=== PATIENT | female | born 1985 | race Caucasian/White ===

== ENCOUNTER → 2018-08-17 | Outpatient (CLI) | payer BC ==
--- NOTE | 2018-08-17 09:00 | RAD ---
Examination: ABDOMEN LTD History: RUQ Pain Comparison/Correlation: None Findings: Limited right upper quadrant ultrasound exam was performed. Hepatic echotexture is normal. Proximal pancreas is normal. Distal pancreas is obscured by bowel gas. Portal venous flow is normal. No ascites. Right kidney measures 11.8 cm x 6.2 cm x 5.3 cm. no right hydronephrosis. Liver has a length of 17.8 cm. Common bile that measures 0.3 cm. Aorta and inferior vena cava are unremarkable. There is a calculus within the gallbladder measuring up to 0.54 cm diameter. Gallbladder wall thickness is normal. No pericholecystic fluid. Impression: Cholelithiasis. No acute process. Electronically signed by: Grzegorz Franco MD (08/17/2018 8:57 AM) [id number]
== END | disposition home or self-care (01) ==
LOC: US 08:15
PROVIDERS: ATTEND Obstetrics & Gynecology
DX: K80.20 Calculus of gallbladder without cholecystitis without obstruction (principal)
CPT/HCPCS: 76705

== ENCOUNTER → 2019-07-14 | Outpatient (CLI) | payer OTHER ==
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
== END | disposition home or self-care (01) ==
LOC: PMG 14:45
PROVIDERS: ATTEND Physician Assistant
DX: M40.292 Other kyphosis, cervical region (principal); V98.8XXA Other specified transport accidents, initial encounter; Y93.89 Activity, other specified; Y92.89 Other specified places as the place of occurrence of the external cause; Y99.8 Other external cause status
CPT/HCPCS: 72050; 72072

== ENCOUNTER → 2019-12-20 | Outpatient (CLI) | payer OTHER, BC ==
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
== END ==
LOC: RAD 18:08
PROVIDERS: ATTEND Physician Assistant Medical
DX: M79.672 Pain in left foot (principal)
CPT/HCPCS: 73630

== ENCOUNTER 2020-03-21 10:03 | Emergency (ER) | payer BC, OTHER ==
[~2020-03-21] VITALS: Ht 162.6 cm; Wt 80.0 kg
--- NOTE | 2020-03-21 10:16 | PHYS DOC ---
Past History Past Medical History: Hypertension Alcohol Use: Occasionally Drug Use: None General Adult EDM: Chief Complaint: CHEST PAIN HPI: HPI: Patient is a 34-year-old female arrives with a chief complaint of chest pain. 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 Patient woke up this morning with some mild discomfort in her bilateral lower ribs. Then patient began having substernal chest pressure that is nonradiating while at work. Patient has shortness of breath and dizziness and felt like she might pass out. Symptoms are worse with activity and better with rest. Patient denies any recent illnesses. Denies any fevers, chills, cough or vomiting or diarrhea. Patient also has some epigastric discomfort. Pain is currently a 5-6 out of 10. Review of Systems: Review of Systems: Constitutional: Denies fever or chills Eyes: Denies change in visual acuity HENT: Denies nasal congestion or sore throat Respiratory: Denies cough but has had shortness of breath Cardiovascular: Complains of chest pain but no edema GI: Complains of some epigastric abdominal pain, but patient denies nausea, vomiting, bloody stools or diarrhea : Denies dysuria Musculoskeletal: Denies back pain or joint pain Integument: Denies rash Neurologic: Denies headache, focal weakness or sensory changes Endocrine: Denies polyuria or polydipsia Lymphatic: Denies swollen glands Psychiatric: Denies depression but has some anxiety Physical Exam: PE: Constitutional: Well developed, well nourished, no acute distress, non-toxic appearance. [] HENT: Normocephalic, atraumatic, bilateral external ears normal, no trismus, nose normal. [] Eyes: PERRLA, EOMI, conjunctiva normal, no discharge. [] Neck: Normal range of motion, no tenderness, supple, no stridor. [] Cardiovascular:Heart rate regular rhythm, peripheral pulse intact cap refill is brisk Lungs & Thorax: Bilateral breath sounds clear, no respiratory distress Abdomen: Soft with epigastric tenderness without guarding or rebound, no masses, no pulsatile masses. [] Skin: Warm, dry, no erythema, no rash. [] Back: No tenderness, no CVA tenderness. [] Extremities: No tenderness, no cyanosis, no clubbing, ROM intact, no edema. [] Neurologic: Alert and oriented X 3, normal motor function, normal sensory function, no focal deficits noted. [] Psychologic: Affect normal, judgement normal, mood normal. [] Current Patient Data: Labs: Laboratory Tests Test 03/21/20 10:10 03/21/20 10:35 03/21/20 10:38 03/21/20 14:21 White Blood Count 6.2 x10^3/uL Red Blood Count 4.34 x10^6/uL Hemoglobin 14.0 g/dL Hematocrit 41.8 % Mean Corpuscular Volume 96 fL Mean Corpuscular Hemoglobin 32 pg Mean Corpuscular Hemoglobin Concent 33 g/dL Red Cell Distribution Width 14.3 % Platelet Count 183 x10^3/uL Neutrophils (%) (Auto) 72 % Lymphocytes (%) (Auto) 16 % Monocytes (%) (Auto) 10 % Eosinophils (%) (Auto) 1 % Basophils (%) (Auto) 1 % Neutrophils # (Auto) 4.4 x10^3uL Lymphocytes # (Auto) 1.0 x10^3/uL Monocytes # (Auto) 0.6 x10^3/uL Eosinophils # (Auto) 0.0 x10^3/uL Basophils # (Auto) 0.0 x10^3/uL D-Dimer (Thelma) 0.76 mg/L Sodium Level 139 mmol/L Potassium Level 3.3 mmol/L Chloride Level 99 mmol/L Carbon Dioxide Level 23 mmol/L Anion Gap 17 Blood Urea Nitrogen 7 mg/dL Creatinine 1.0 mg/dL Estimated GFR (Cockcroft-Gault) 63.5 BUN/Creatinine Ratio 7 Glucose Level 103 mg/dL Calcium Level 9.6 mg/dL Total Bilirubin 0.2 mg/dL Aspartate Amino Transf (AST/SGOT) 146 U/L Alanine Aminotransferase (ALT/SGPT) 150 U/L Alkaline Phosphatase 108 U/L Troponin I Quantitative < 0.017 ng/mL < 0.017 ng/mL [id number] Natriuretic Peptide 57 pg/mL Total Protein 7.9 g/dL Albumin 4.2 g/dL Albumin/Globulin Ratio 1.1 Lipase 176 U/L Serum Test, Qualitative Negative Urine Collection Type Unknown Urine Color Yellow Urine Clarity Clear Urine pH 8.0 Urine Specific [place] 1.020 Urine Protein Trace Urine Glucose (UA) Neg mg/dL Urine Ketones (Stick) Trace mg/dL Urine Blood Neg Urine Nitrite Neg Urine Bilirubin Neg Urine Urobilinogen Dipstick 0.2 mg/dL Urine Leukocyte Esterase Neg Urine RBC 0 /HPF Urine WBC Occ /HPF Urine Squamous Epithelial Cells Few /LPF Urine Bacteria 0 /HPF Bedside Urine HCG, Qualitative hcg negative Current Medications Medications (Trade) Dose Ordered Sig/Paco Route PRN Reason Start Time Stop Time Status Last Admin Dose Admin Lorazepam (Ativan Inj) 1 mg 1X ONCE IVP 03/21/20 10:45 03/21/20 10:46 DC 03/21/20 10:45 Aspirin (Aspirin Chewable) 324 mg 1X ONCE PO 03/21/20 10:45 03/21/20 10:46 DC 03/21/20 10:45 Ketorolac Tromethamine (Toradol 15mg Vial) 15 mg 1X ONCE IVP 03/21/20 11:45 03/21/20 11:48 DC 03/21/20 11:45 Iohexol (Omnipaque 350 Mg/ml) 100 ml 1X ONCE IV 03/21/20 11:45 03/21/20 11:48 DC 03/21/20 12:17 Lorazepam (Ativan Inj) 1 mg 1X ONCE IVP 03/21/20 13:45 03/21/20 13:51 DC 03/21/20 13:45 Labetalol HCl (Normodyne) 20 mg 1X ONCE IVP 03/21/20 14:15 03/21/20 14:19 DC 03/21/20 14:15 Vital Signs: Vital Signs Date Time Temp Pulse Resp B/P (MAP) Pulse Ox O2 Delivery O2 Flow Rate FiO2 03/21/20 14:24 116 168/112 (130) 03/21/20 13:55 16 98 03/21/20 11:51 Room Air 03/21/20 10:53 99.0 03/21/20 10:07 97.9 EKG: EKG: EKG interpreted by me sinus tach with a rate of 107 normal axis normal intervals normal ST segments [] Radiology/Procedures: Radiology/Procedures: [][address] [address] IMAGING REPORT Signed PATIENT: JOEY SOARES ACCOUNT: [id number] : 1985 LOCATION: ER AGE: 34 SEX: F EXAM STATUS: REG ER ORD. PHYSICIAN: JULIO CESAR MARIEE MD REASON: CHEST PAIN PROCEDURE: PORTABLE CHEST 1V EXAM: PORTABLE CHEST 1V INDICATION: Reason: CHEST PAIN / Spl. Instructions: / History: . TECHNIQUE: Single view COMPARISON: None FINDINGS: The heart size is normal. The great vessels appear unremarkable. There is no hilar or mediastinal mass. The lungs are clear. There is no pleural effusion or pneumothorax. There are no significant osseous abnormalities. IMPRESSION: No active cardiopulmonary disease. Electronically signed by: Radha Valente MD (03/21/2020 10:34 AM) [id number] DICTATED AND SIGNED BY: RADHA VALENTE MD DATE: 03/21/201033 CC: JULIO CESAR MARIEE MD; ALCON JARVIS MD ~ [place] [address] IMAGING REPORT Signed PATIENT: JOEY SOARES ACCOUNT: [id number] : 1985 LOCATION: ER AGE: 34 SEX: F EXAM STATUS: REG ER ORD. PHYSICIAN: JULIO CESAR MARIEE MD REASON: CHEST PAIN, SOA, POS D-DIMER PROCEDURE: CT ANGIOGRAPHY CHEST CT ANGIOGRAPHY CHEST INDICATION: CHEST PAIN, SOA, POS D-DIMER Comparison: Radiograph 03/21/2020. TECHNIQUE: Following the uneventful administration of intravenous contrast, 100 cc Omnipaque 350, axial CT sections were obtained through the lungs and upper abdomen. Multiplanar reconstructions and MIP images were obtained. PQRS compliance statement: One or more of the following individualized dose reduction techniques were utilized for this examination: 1. Automated exposure control 2. Adjustment of the mA and/or kV according to patient size 3. Use of iterative reconstruction technique FINDINGS: Pulmonary arteries: No evidence of pulmonary thromboembolic disease. Lungs and Airways: No pulmonary mass or consolidation. No abnormality of the central airways. Pleura: The pleural spaces are normal. Heart and Mediastinum: The visualized thyroid is normal in size and attenuation. No axillary or supraclavicular lymphadenopathy. No mediastinal, hilar or retrocrural lymphadenopathy. The heart and pericardium are within normal limits. The great vessels of the thorax are normal. Abdomen: Hepatic steatosis. Bones and Soft Tissues: The visualized bones and chest wall soft tissues are within normal limits. IMPRESSION: 1. No evidence of pulmonary thromboembolic disease. 2. No pulmonary mass or consolidation. Electronically signed by: Justin Sommer MD (03/21/2020 12:39 PM) [id number] DICTATED AND SIGNED BY: JUSTIN SOMMER MD DATE: 03/21/20 1239 CC: JULIO CESAR MARIEE MD; ALCON [place]VIS ~ [place] [address] IMAGING REPORT Signed PATIENT: JOEY SOARES ACCOUNT: [id number] : 1985 LOCATION: ER AGE: 34 SEX: F EXAM STATUS: REG ER ORD. PHYSICIAN: JULIO CESAR MARIEE MD REASON: RUQ PAIN PROCEDURE: ABDOMEN LTD INDICATION : Reason: RUQ PAIN / Spl. Instructions: / History: COMPARISON: August 2018 TECHNIQUE: Multiple ultrasound images obtained through the abdomen in grayscale and color. FINDINGS: Liver: Echogenic appearance Gallbladder: Partially contracted. The gallstone seen on prior examination are not well seen on this exam. Tenderness to pressure in the right upper quadrant. IVC: Partially distended at level of liver. Common Bile Duct: Not dilated. Pancreas: Incompletely visualized secondary to overlying bowel gas. Right Kidney: No hydronephrosis. IMPRESSION: * No common bile duct dilation. There is some pain to transducer pressure in the right upper quadrant. * Liver is echogenic. Nonspecific but can be seen with fatty infiltration. Electronically signed by: Augustine Cummings MD (03/21/2020 12:28 PM) [id number] DICTATED AND SIGNED BY: AUGUSTINE CUMMINGS MD DATE: 03/21/20 1228 CC: JULIO CESAR MARIEE MD; ALCON JARVIS ~ Heart Score: HEART Score for Chest Pain: HEART Score for Chest Pain Response (Comments) Value History Moderately Suspicious 1 ECG Normal 0 Age < 45 0 Risk Factors 1 or 2 Risk Factors 1 Troponin < Normal Limit 0 Total 2 Risk Factors: Risk Factors: DM, Current or recent (<one month) smoker, HTN, HLP, family history of CAD, obesity. Risk Scores: Score 0 - 3: 2.5% MACE over next 6 weeks - Discharge Home Score 4 - 6: 20.3% MACE over next 6 weeks - Admit for Clinical Observation Score 7 - 10: 72.7% MACE over next 6 weeks - Early Invasive Strategies Course & Med Decision Making: Course & Med Decision Making Pertinent Labs and Imaging studies reviewed. (See chart for details) [] 34-year-old female presents with chest pain and feels like her heart is pounding. Patient had elevated D-dimer therefore she had a CT angiogram which was negative for pulmonary embolism or thoracic aortic dissection. Patient has a heart score of 2 and 2 - troponins, doubt acute coronary syndrome. Patient is neurologically intact. Patient has some epigastric tenderness therefore she had an ultrasound which is negative. Patient has some transaminitis but otherwise negative work-up. Patient's blood pressure is improved after Ativan and labetalol. Patient is a follow-up appoint with her doctor tomorrow and may need to adjust her blood pressure medicine. Patient is otherwise stable for discharge and outpatient follow-up Anali Disclaimer: Anali Disclaimer: This electronic medical record was generated, in whole or in part, using a voice recognition dictation system. Departure Departure: Impression: Primary Impression: Chest pain Additional Impressions: Epigastric pain Hypertension Transaminitis Disposition: 01 DC HOME SELF CARE/HOMELESS Condition: STABLE Referrals: ALCON JARVIS (PCP) Tomorrow Patient Instructions: Abdominal Pain, Chest Pain (Nonspecific) Additional Instructions: EMERGENCY DEPARTMENT GENERAL DISCHARGE INSTRUCTIONS THANK YOU for coming to [facility] Emergency Department (ED) today and trusting us with your care. We trust that you had a positive experience in our Emergency Department. If you wish to speak to the department Management you can contact the emergency department at YOUR FOLLOW UP INSTRUCTIONS ARE FOLLOWS: Do you have a private doctor? If you do not have a private doctor, please ask for a resource list of physicians or clinics that may be able to assist you with follow up care. The Emergency Physician has interpreted your x-rays. The X-ray specialist will also review them. If there is a change in the findings you will be notified in 48 hours when at all possible. A lab test or lab culture may have been done, your results will be reviewed and you will be notified if you need a change in treatment. ADDITIONAL INSTRUCTIONS AND INFORMATION Your care today has been supervised by a physician who is specially trained in emergency care. Many problems require more than one evaluation for a complete diagnosis and treatment. We recommend that you schedule your follow up appointment as recommended to ensure complete treatment of your illness or injury. If you are unable to obtain follow up care and continue to have a problem, or if your condition worsens we recommend that you return to the ED. We are not able to safely determine your condition over the phone nor are we able to give sound medical advice over the phone. For these safety reasons, if you call for medical advice we will ask you to come to the ED for further evaluation If you have any questions regarding these discharge instructions please call the ED at . SAFETY INFORMATION In the interest of safety, wellness, and injury prevention; we encourage you to wear your seatbelt, if you smoke; quit smoking, and we encourage your family to use protective helmet for bicycling and other sporting events that present an increased risk for head injury. IF YOUR SYMPTOMS WORSEN OR NEW SYMPTOMS DEVELOP, OR YOU HAVE CONCERNS ABOUT YOUR CONDITION; OR IF YOUR CONDITION WORSENS WHILE YOU ARE WAITING FOR YOUR FOLLOW UP APPOINTMENT; EITHER CONTACT YOUR PRIMARY CARE DOCTOR, THE PHYSICIAN WHOSE NAME AND NUMBER YOU WERE GIVEN, OR RETURN TO THE ED IMMEDIATELY. JULIO CESAR MARIEE MD Mar 21, 2020 10:16
--- NOTE | 2020-03-21 10:27 | EKG ---
[address] [address] Test Date: 2020-03-21 Test Time: 10:09:08 Pat Name: JOEY SOARES Department: Room: Gender: F [employer]: VAHID : 1985 Requested By: JULIO CESAR MARIEE Order Number: [id number] Reading MD: Measurements Intervals [place] Rate: 107 P: 64 NH: 138 QRS: 42 QRSD: 88 T: 48 QT: 340 QTc: 459 Interpretive Statements SINUS TACHYCARDIA OTHERWISE NORMAL ECG RI6.02 No previous ECG available for comparison
[2020-03-21 10:37] LABS: BASO % 1 % (0-3); EOS % 1 % (0-3); HEMATOCRIT 41.8 % (36.0-47.0); LYMPH % 16 % (24-48); MEAN CORPUSCULAR HEMOGLOBIN 32 pg (25-35); MEAN CORPUSCULAR HGB CONC 33 g/dL (31-37); MEAN CORPUSCULAR VOLUME 96 fL (79-100); MONO # 0.6 x10^3/uL (0.0-1.1); MONO % 10 % (0-9); NEUT # 4.4 x10^3uL (1.8-7.7); NEUT % 72 % (31-73); PLATELET COUNT 183 x10^3/uL (140-400); RED BLOOD COUNT 4.34 x10^6/uL (3.50-5.40); RED CELL DISTRIBUTION WIDTH 14.3 % (11.5-14.5); WHITE BLOOD COUNT 6.2 x10^3/uL (4.0-11.0)
--- NOTE | 2020-03-21 10:37 | RAD ---
EXAM: PORTABLE CHEST 1V INDICATION: Reason: CHEST PAIN / Spl. Instructions: / History: . TECHNIQUE: Single view COMPARISON: None FINDINGS: The heart size is normal. The great vessels appear unremarkable. There is no hilar or mediastinal mass. The lungs are clear. There is no pleural effusion or pneumothorax. There are no significant osseous abnormalities. IMPRESSION: No active cardiopulmonary disease. Electronically signed by: Rob Valente MD (03/21/2020 10:34 AM) [id number]
[2020-03-21 10:42] LABS: CALCIUM 9.6 mg/dL (8.5-10.1); GFR 63.5; POTASSIUM 3.3 mmol/L (3.5-5.1); PREG TEST PT QUAL NEGATIVE (NEG)
[2020-03-21] MEDS ORDERED: ASPIRIN CHEWABLE 81 MG TABLET. PO ONE (10:45)
[2020-03-21 10:55] LABS: ALBUMIN 4.2 g/dL (3.4-5.0); ALBUMIN/GLOBULIN RATIO 1.1 (1.0-1.7); TOTAL BILIRUBIN 0.2 mg/dL (0.2-1.0); TOTAL PROTEIN 7.9 g/dL (6.4-8.2)
[2020-03-21 11:15] LABS: BILIRUBIN,URINE NEG (NEG); CLARITY,URINE CLEAR; COLOR,URINE YELLOW; GLUCOSE,URINE NEG (NEG)
[2020-03-21 11:16] LABS: BACTERIA,URINE 0 /HPF (0-FEW); NITRITE,URINE NEG (NEG); RBC,URINE 0 /HPF (0-2); SQUAMOUS EPITHELIAL CELL,UR FEW /LPF; UROBILINOGEN,URINE 0.2 mg/dL (0.2 mg/dL); WBC,URINE OCC /HPF (0-4)
[2020-03-21] MEDS ORDERED: KETOROLAC 15 MG/ML VIAL. IVP ONE (11:45)
[2020-03-21] MEDS ORDERED: IOHEXOL 350 MG/ML 100 ML VIAL. IV ONE (11:45)
--- NOTE | 2020-03-21 12:32 | RAD ---
INDICATION : Reason: RUQ PAIN / Spl. Instructions: / History: COMPARISON: August 2018 TECHNIQUE: Multiple ultrasound images obtained through the abdomen in grayscale and color. FINDINGS: Liver: Echogenic appearance Gallbladder: Partially contracted. The gallstone seen on prior examination are not well seen on this exam. Tenderness to pressure in the right upper quadrant. IVC: Partially distended at level of liver. Common Bile Duct: Not dilated. Pancreas: Incompletely visualized secondary to overlying bowel gas. Right Kidney: No hydronephrosis. IMPRESSION: * No common bile duct dilation. There is some pain to transducer pressure in the right upper quadrant. * Liver is echogenic. Nonspecific but can be seen with fatty infiltration. Electronically signed by: Abhishek Biswas MD (03/21/2020 12:28 PM) [id number]
--- NOTE | 2020-03-21 12:42 | RAD ---
CT ANGIOGRAPHY CHEST INDICATION: CHEST PAIN, SOA, POS D-DIMER Comparison: Radiograph 03/21/2020. TECHNIQUE: Following the uneventful administration of intravenous contrast, 100 cc Omnipaque 350, axial CT sections were obtained through the lungs and upper abdomen. Multiplanar reconstructions and MIP images were obtained. PQRS compliance statement: One or more of the following individualized dose reduction techniques were utilized for this examination: 1. Automated exposure control 2. Adjustment of the mA and/or kV according to patient size 3. Use of iterative reconstruction technique FINDINGS: Pulmonary arteries: No evidence of pulmonary thromboembolic disease. Lungs and Airways: No pulmonary mass or consolidation. No abnormality of the central airways. Pleura: The pleural spaces are normal. Heart and Mediastinum: The visualized thyroid is normal in size and attenuation. No axillary or supraclavicular lymphadenopathy. No mediastinal, hilar or retrocrural lymphadenopathy. The heart and pericardium are within normal limits. The great vessels of the thorax are normal. Abdomen: Hepatic steatosis. Bones and Soft Tissues: The visualized bones and chest wall soft tissues are within normal limits. IMPRESSION: 1. No evidence of pulmonary thromboembolic disease. 2. No pulmonary mass or consolidation. Electronically signed by: Charles Valencia MD (03/21/2020 12:39 PM) [id number]
[2020-03-21] MEDS ORDERED: LABETALOL 20 MG/4 ML DISP.SYRIN. IVP ONE (14:15)
[2020-03-21 15:27] VITALS: BP 154/111
== END 2020-03-21 15:25 | disposition home or self-care (01) ==
LOC: ER 10:03
DX: R07.2 Precordial pain (principal); R10.13 Epigastric pain; I10 Essential (primary) hypertension; R74.01 Elevation of levels of liver transaminase levels
CPT/HCPCS: 36415; 71045; 71275; 76705; 80053; 81001; 81025; 83690; 83880; 84443; 84484; 84703; 85025; 85379; 93005; 96374; 96375; 96376; 99285; J1885; J2060; J3490; Q9967

== ENCOUNTER → 2020-03-23 | Outpatient (CLI) | payer BC ==
[2020-03-21 15:27] VITALS: BP 154/111
== END ==
LOC: LAB 09:23
PROVIDERS: ATTEND Physician Assistant
DX: R05 Cough (principal); B97.29 Other coronavirus as the cause of diseases classified elsewhere; Z20.828 Contact with and (suspected) exposure to other viral communicable diseases
CPT/HCPCS: U0003

== ENCOUNTER 2020-11-21 08:58 | Inpatient (IN) | payer SELFPAY ==
[~2020-11-21] VITALS: Ht 162.6 cm; Wt 63.1 kg
[2020-11-21] MEDS ORDERED: FAMOTIDINE 20 MG/2 ML VIAL IVP ONE (09:15)
[2020-11-21] MEDS ORDERED: IV NORMAL SALINE 1,000ML 1,000 ML IV ONE ×2 (09:15→10:15)
[2020-11-21] MEDS ORDERED: ONDANSETRON PF 4 MG/2 ML VIAL. IVP ONE (09:15)
[2020-11-21] MEDS ORDERED: KETOROLAC 15 MG/ML VIAL. IVP ONE (09:15)
[2020-11-21 09:26] LABS: BASO # 0.1 x10^3/uL (0.0-0.2); BASO % 1 % (0-3); EOS % 1 % (0-3); HEMATOCRIT 38.5 % (36.0-47.0); LYMPH # 1.7 x10^3/uL (1.0-4.8); LYMPH % 30 % (24-48); MEAN CORPUSCULAR HEMOGLOBIN 33 pg (25-35); MEAN CORPUSCULAR HGB CONC 34 g/dL (31-37); MEAN CORPUSCULAR VOLUME 98 fL (79-100); MONO # 0.3 x10^3/uL (0.0-1.1); MONO % 6 % (0-9); NEUT # 3.6 x10^3uL (1.8-7.7); NEUT % 63 % (31-73); PLATELET COUNT 218 x10^3/uL (140-400); RED BLOOD COUNT 3.93 x10^6/uL (3.50-5.40); RED CELL DISTRIBUTION WIDTH 20.7 % (11.5-14.5); WHITE BLOOD COUNT 5.8 x10^3/uL (4.0-11.0)
--- NOTE | 2020-11-21 09:29 | PHYS DOC ---
Past History Past Medical History: Anxiety, Depression, Hypertension, Pancreatitis, Other Additional Past Medical Histor: ADHD Past Surgical History: Other Additional Past Surgical Histo: BACK x 4 Smoking: Non-smoker Alcohol Use: Occasionally Drug Use: None General Adult EDM: Chief Complaint: CHEST PAIN HPI: HPI: Patient is a 34 year old female who presents with chest/epigastric pain. States the pain started at 5am this morning (11/21/20) and has been worsening since. States that she has a history of pancreatitis and she feels that it is "acting up again." Pain is localized to the epigastric area and is described as a 10/10 in severity. The patient struggled to provide a detailed history due to her pain. The pain is non-radiating, sharp and stabbing. Reports associated nausea. Denies vomiting or diarrhea. Denies recent illness. Reports drinking "a few beers last night." Review of Systems: Review of Systems: Constitutional: Denies fever or chills Eyes: Denies redness or eye pain HENT: Denies nasal congestion or sore throat Respiratory: Denies cough or shortness of breath Cardiovascular: Denies chest pain or palpitations GI: Reports abdominal pain and nausea; Denies vomiting or diarrhea : Denies dysuria or hematuria Musculoskeletal: Denies back pain or joint pain Integument: Denies rash or skin lesions Neurologic: Denies headache, focal weakness or sensory changes Complete systems were reviewed and found to be within normal limits, except as documented in this note. Current Medications: Current Meds: Current Medications Medications (Trade) Dose Ordered Sig/[facility] Start Time Stop Time Status Last Admin Dose Admin Famotidine (Pepcid Vial) 20 mg 1X ONCE 11/21/20 09:15 11/21/20 09:16 UNV Ketorolac Tromethamine (Toradol 15mg Vial) 15 mg 1X ONCE 11/21/20 09:15 11/21/20 09:16 UNV Ondansetron HCl (Zofran) 4 mg 1X ONCE 11/21/20 09:15 11/21/20 09:16 UNV Sodium Chloride 1,000 ml @ 1,000 mls/hr 1X ONCE 11/21/20 09:15 11/21/20 10:14 UNV Allergies: Allergies: Allergies Coded Allergies Type Severity Reaction Last Updated Verified No Known Drug Allergies 03/21/20 No Physical Exam: PE: Constitutional: Well developed, well nourished, in acute distress due to pain, non-toxic appearance HENT: Normocephalic, atraumatic Eyes: PERRL, EOMI, conjunctiva normal, no discharge Neck: Normal range of motion, no tenderness, supple Lungs & Thorax: No respiratory distress, equal chest rise and fall Abdomen: Soft, non-distended, tenderness to palpation throughout and most significantly in the epigastric and LUQ region Skin: Warm, dry, no erythema, no rash Back: No tenderness, no CVA tenderness Extremities: No tenderness, ROM intact, no edema Neurologic: Alert and oriented X 3, normal motor function, normal sensory function, no focal deficits noted Psychologic: Affect anxious, judgment normal Current Patient Data: Vital Signs: Vital Signs Date Time Temp Pulse Resp B/P (MAP) Pulse Ox O2 Delivery O2 Flow Rate FiO2 11/21/20 09:01 98.5 100 16 146/92 100 Room Air EKG: EK11/21/20 @ 0901 sinus tachycardia, 103 bpm, QRS 80 ms, QT/QTc 384/505ms, no ST segment changes Radiology/Procedures: Radiology/Procedures: PROCEDURE: CT ABD PELV W/ IV CONTRST ONLY CT scan of the abdomen and pelvis with contrast 11/21/2020 CLINICAL HISTORY: Epigastric pain. Left upper quadrant abdominal pain. TECHNIQUE: After the intravenous administration of 75 cc of Omnipaque 300 only, contiguous, 5 mm axial sections were obtained through the abdomen and pelvis. One or more of the following individualized dose reduction techniques were utilized for this study: 1. Automated exposure control. 2. Adjustment of the mA and/or kV according to patient size. 3. Use of iterative reconstruction technique. FINDINGS: Comparison study is dated 09/30/2020. Images through the lung bases are within normal limits. The liver is mildly enlarged measuring 19 cm in length. Decreased attenuation of the liver parenchyma is seen consistent with fatty infiltration. The spleen, adrenal glands and kidneys are within normal limits. The pancreas is enlarged and poorly defined particularly involving the head and proximal body of the pancreas. Increased density is seen within the fat. These findings are consistent with acute pancreatitis. No pancreatic pseudocyst is seen. Since the previous examination the phlegmon surrounding the tail of pancreas has largely resolved. The phlegmon surrounding the head and proximal body has increased slightly. The abdominal aorta tapers normally. The gallbladder is slightly contracted. No free fluid or free air is seen within the abdomen. There is no evidence of bowel obstruction. Images through the pelvis demonstrate the urinary bladder distended with urine. A very small amount of free fluid is seen within the pelvis. No adnexal mass is seen. The osseous structures are unchanged. IMPRESSION: Findings are seen consistent with acute pancreatitis as discussed above. No pancreatic pseudocyst is seen. Electronically signed by: Duong Schroeder MD (11/21/2020 10:19 AM) [id number] Heart Score: C/O Chest Pain: Yes HEART Score for Chest Pain: HEART Score for Chest Pain Response (Comments) Value History Slighlty/Non-Suspicious 0 ECG Normal 0 Age < 45 0 Risk Factors 1 or 2 Risk Factors 1 Troponin < Normal Limit 0 Total 1 Risk Factors: Risk Factors: DM, Current or recent (<one month) smoker, HTN, HLP, family history of CAD, obesity. Risk Scores: Score 0 - 3: 2.5% MACE over next 6 weeks - Discharge Home Score 4 - 6: 20.3% MACE over next 6 weeks - Admit for Clinical Observation Score 7 - 10: 72.7% MACE over next 6 weeks - Early Invasive Strategies Course & Med Decision Making: Course & Med Decision Making Pertinent Labs and Imaging studies reviewed. (See chart for details) Patient is a 34 year old female who presented for chest/epigastric pain. Patient reported history of pancreatitis. EKG was obtained and showed sinus tachycardia with no signs of ischemia. Labs obtained and posted to chart. Troponin WNL. Lipase significantly elevated. Hypokalemia and hypomagnesemia addressed. CT Abd/pel w IV contrast consistent with acute pancreatitis without evidence of a pseudocyst. Patient kept NPO. Symptomatic treatment provided. Patient requiring admission for further evaluation and treatment. Discussed with Dr. Don (hospitalist) who is in agreement with admission. Discussed findings and plan with patient, who acknowledges understanding and agreement. Dragon Disclaimer: Anali Disclaimer: This electronic medical record was generated, in whole or in part, using a voice recognition dictation system. Departure Departure: Impression: Primary Impression: Acute pancreatitis Qualified Codes: K85.20 - Alcohol induced acute pancreatitis without necrosis or infection Additional Impressions: Hypokalemia Hypomagnesemia Disposition: ADMITTED INPATIENT Admitting Physician: Lety Don Condition: STABLE Referrals: ALCON JARVIS (PCP) Scripts No Active Prescriptions or Reported Meds STACIE MONIQUE DO Nov 21, 2020 09:29
[2020-11-21 09:40] LABS: ANION GAP 21 (6-14); BLOOD UREA NITROGEN 3 mg/dL (7-20); BUN/CREATININE RATIO 3 (6-20); CALCIUM 8.8 mg/dL (8.5-10.1); CARBON DIOXIDE 20 mmol/L (21-32); CHLORIDE 96 mmol/L (98-107); CREATININE 0.9 mg/dL (0.6-1.0); GFR 71.7; GLUCOSE 107 mg/dL (70-99); POTASSIUM 3.3 mmol/L (3.5-5.1); SODIUM 137 mmol/L (136-145)
[2020-11-21] MEDS ORDERED: IOHEXOL 300 MG/ML 75 ML VIAL. IV ONE (09:45)
[2020-11-21 09:53] LABS: ALBUMIN 3.4 g/dL (3.4-5.0); ALBUMIN/GLOBULIN RATIO 0.9 (1.0-1.7); ALK PHOS 132 U/L (46-116); ALT (SGPT) 51 U/L (14-59); AST (SGOT) 178 U/L (15-37); MAGNESIUM 1.6 mg/dL (1.8-2.4); TOTAL BILIRUBIN 0.9 mg/dL (0.2-1.0); TOTAL PROTEIN 7.4 g/dL (6.4-8.2)
[2020-11-21 10:03] LABS: ANISOCYTOSIS MOD; PLT ESTIMATE ADEQUATE (ADEQUATE)
[2020-11-21] MEDS ORDERED: HYDROmorphone PF 1 MG/ML DISP.SYRIN IVP PRN (10:15)
[2020-11-21] MEDS ORDERED: HYDROmorphone PF 1 MG/ML DISP.SYRIN IVP ONE (10:15)
--- NOTE | 2020-11-21 10:21 | RAD ---
CT scan of the abdomen and pelvis with contrast 11/21/2020 CLINICAL HISTORY: Epigastric pain. Left upper quadrant abdominal pain. TECHNIQUE: After the intravenous administration of 75 cc of Omnipaque 300 only, contiguous, 5 mm axia l sections were obtained through the abdomen and pelvis. One or more of the following individualized dose reduction techniques were utilized for this study: 1. Automated exposure control. 2. Adjustment of the mA and/or kV according to patient size. 3. Use of iterative reconstruction technique. FINDINGS: Comparison study is dated 09/30/2020. Images through the lung bases are within normal limits. The liver is mildly enlarged measuring 19 cm in length. Decreased attenuation of the liver parenchyma is seen consistent with fatty infiltration. The spleen, adrenal glands and kidneys are within normal limits. The pancreas is enlarged and poorly defined particularly involving the head and proximal body of the pancreas. Increased density is seen within the fat. These findings are consistent with acute pancreat itis. No pancreatic pseudocyst is seen. Since the previous examination the phlegmon surrounding the t ail of pancreas has largely resolved. The phlegmon surrounding the head and proximal body has increas ed slightly. The abdominal aorta tapers normally. The gallbladder is slightly contracted. No free fluid or free ai r is seen within the abdomen. There is no evidence of bowel obstruction. Images through the pelvis demonstrate the urinary bladder distended with urine. A very small amount o f free fluid is seen within the pelvis. No adnexal mass is seen. The osseous structures are unchanged . IMPRESSION: Findings are seen consistent with acute pancreatitis as discussed above. No pancreatic ps eudocyst is seen. Electronically signed by: Duong Schroeder MD (11/21/2020 10:19 AM) [id number]
[2020-11-21 10:22] LABS: LIPASE 5544 U/L (73-393)
[2020-11-21] MEDS ORDERED: MAGNESIUM SULFATE 2GM 50 ML IV ONE ×2 (10:30→13:15)
[2020-11-21] MEDS ORDERED: POTASSIUM CHLORIDE 10 MEQ TABLET.ER. PO ONE (10:30)
[2020-11-21] MEDS ORDERED: LISD60CA PO (12:25)
[2020-11-21] MEDS ORDERED: AMLO-186 PO (12:25)
[2020-11-21] MEDS ORDERED: FLUO40CA9 PO (12:25)
[2020-11-21] MEDS: HYDROmorphone PF 1 MG/ML DISP.SYRIN IVP PRN ×3 (13:51→20:53)
[2020-11-21 15:39] VITALS: BP 139/99
--- NOTE | 2020-11-21 15:58 | HP ---
ADMIT DATE: 11/21/2020 HISTORY OF PRESENT ILLNESS: The patient is a 34-year-old female patient who presented again to the Emergency Room with chest pain, epigastric pain. Stated the pain started around 5:00 a.m. this morning, has been worsening since. She states that she has history of pancreatitis and she feels it is acting up again. The pain is localized to the epigastric area and described as 10/10 in severity. She admits to struggle to provide a detailed history due to her pain. Pain is nonradiating, sharp and stabbing. Reports associated nausea. Denied any vomiting or diarrhea; however, when I asked her, she said that she has had nausea and has been constantly vomiting by the time she arrived to the Emergency Room today at the hospital. She was investigated in the Emergency Room and was found to have acute pancreatitis with a serum lipase of 5544. Her blood alcohol level was [address] abdomen and pelvis showed that the patient has findings seen consistent with acute pancreatitis and gallbladder slightly contracted. No free fluid or free air is seen within the abdomen. There is no evidence of bowel obstruction. The patient was admitted to the hospital, started on IV fluid, IV pain medication, antiemetic. PAST MEDICAL HISTORY: Significant for exercised-induced asthma, hypertension, depression, anxiety, posttraumatic stress disorder and ADHD as well as nicotine dependence. PAST SURGICAL HISTORY: Significant for 4 back surgeries for cauda equina syndrome. ALLERGIES: She has no known drug allergies. MEDICATIONS: She is currently on following medications: She is on amlodipine besylate 5 mg once a day, fluoxetine 40 mg once a day and Vyvanse 60 mg once a day. FAMILY HISTORY: She has 1 sister older and healthy. Her father is still alive and has hypertension, myocardial infarction. Mother is alive and has a leaky valve. SOCIAL HISTORY: She is , has a son and a daughter. She smokes about 6-8 cigarettes a day. She does drinks alcohol occasionally. Does not use any drugs. However, she uses CBD. 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 PHYSICAL EXAMINATION: GENERAL: On examining her, she looked well and was clearly in no apparent respiratory distress. No pallor, jaundice, cyanosis. No lymphadenopathy, no thyromegaly. No jugular venous distention. No limb edema. VITAL SIGNS: Her heart rate was 100, blood pressure is 146/92, temperature was 98.5, respiratory rate was 16, and oxygen saturation was 100%. The rest of clinical exam was stable. Does have tenderness in the epigastric and right upper quadrant. LABORATORY DATA: Showed a white cell count of 5800, hemoglobin 13, hematocrit 39, MCV 98 and platelet count 218,000. Her serum sodium was 137, potassium 3.3, chloride 96, bicarbonate 20, anion gap of 21, creatinine 3. Estimated GFR was 71 mL per minute. Her glucose 107, calcium was 8.8, magnesium was 1.6. Total bilirubin and AST normal. ALT and alkaline phosphatase slightly elevated. Total protein 7.4, albumin 3.4. Serum lipase was 5544. ASSESSMENT: 1. Acute pancreatitis, likely due to alcohol-induced. 2. Hypokalemia. 3. Hypomagnesemia. 4. Hypertension. 5. Attention deficit and hyperactivity disorders, depression, anxiety, posttraumatic stress disorder. PLAN: To keep the patient n.p.o. Continue with pain management, IV fluid, antiemetic. QUETA DR: Viktoria TID: [id number]
[2020-11-21] MEDS: ONDANSETRON PF 4 MG/2 ML VIAL. IVP PRN (17:06)
[2020-11-21 20:07] VITALS: BP 145/98
[2020-11-21] MEDS: METOCLOPRAMIDE HCL 10 MG/2 ML VIAL. IVP PRN (20:53)
--- NOTE | 2020-11-21 23:41 | EKG ---
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
[2020-11-21 23:48] VITALS: BP 131/85
[2020-11-22] MEDS: HYDROmorphone PF 1 MG/ML DISP.SYRIN IVP PRN ×6 (01:05→20:51)
[2020-11-22 06:26] VITALS: BP 132/92
[2020-11-22] MEDS: ONDANSETRON PF 4 MG/2 ML VIAL. IVP PRN (09:18)
[2020-11-22 11:36] VITALS: BP 120/88
[2020-11-22] MEDS: METOCLOPRAMIDE HCL 10 MG/2 ML VIAL. IVP PRN ×2 (11:48→20:50)
[2020-11-22 15:06] VITALS: BP 132/92
[2020-11-22 19:41] VITALS: BP 129/92
--- NOTE | 2020-11-22 22:46 | PN ---
DATE: 11/22/2020 SUBJECTIVE: No appetite, but she is thirsty. She would like to try some liquids. Nausea was controlled. OBJECTIVE FINDINGS: VITAL SIGNS: Blood pressure this morning is 132/92, pulse 100 and regular. She is afebrile. Oxygen saturation 96% on room air. HEENT: Head is without trauma. Pupils are reactive. Sclerae nonicteric. Oropharynx is clear. NECK: Supple, no bruits identified. LUNGS: Good breath sounds. CARDIOVASCULAR: Showed tachycardia rhythm. No gallops. ABDOMEN: Soft. Minimal guarding, no rebound tenderness. EXTREMITIES: Without edema. NEUROLOGIC: Focally intact. ASSESSMENT: 1. A 34-year-old female with alcoholic pancreatitis. 2. Chronic alcoholism. 3. Posttraumatic stress disorder. 4. Attention deficit disorder. 5. Nicotine dependence. 6. Hypertension. 7. Exercise-induced asthma. 8. Cauda equina syndrome with multiple back surgeries. PLAN: 1. Advance diet. 2. Pain control. 3. Continue home meds. DIAMOND DR: DIAMOND/amparo TID: [id number]
[2020-11-23] MEDS: METOCLOPRAMIDE HCL 10 MG/2 ML VIAL. IVP PRN (03:07)
[2020-11-23] MEDS: HYDROmorphone PF 1 MG/ML DISP.SYRIN IVP PRN ×4 (03:08→14:00)
[2020-11-23 06:16] VITALS: BP 121/82
[2020-11-23 12:52] VITALS: BP 128/76
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
[2020-11-23] MEDS ORDERED: HYDR2TAB31 PO (14:01)
--- NOTE | 2020-11-23 22:40 | DS ---
DATE OF DISCHARGE: 11/23/2020 ATTENDING PHYSICIAN: Dr. Don and Dr. Pennington. FINAL DISCHARGE DIAGNOSES: 1. Alcoholic pancreatitis. 2. Chronic alcoholism. 3. Posttraumatic stress disorder. 4. Attention deficit disorder. 5. Nicotine dependence. 6. Hypertension. 7. Cauda equina syndrome, multiple back surgeries. HISTORY AND PHYSICAL: The patient is a 34-year-old female with multiple psychiatric issues. She continues to drink alcohol. She was admitted with abdominal pain, nausea and another episode of alcoholic-induced pancreatitis. PHYSICAL EXAMINATION: Please see the dictated note. PERTINENT LABORATORY AND X-RAY STUDIES: White count was 5800, hemoglobin 13.0 grams. Lipase level is 5500. Electrolytes within normal range. The CT scan showed enlargement and inflammation involving the entire pancreas. COURSE IN THE HOSPITAL: The patient was admitted, started on pain and nausea control. She was kept n.p.o. Diet was advanced to full liquids. By the third hospital day, her vital signs were stable. She was afebrile. Her oxygen saturation was adequate. Her physical exam showed her abdominal exam to be benign. There was minimal guarding. There was no rebound tenderness. There was no rigidity. She had stable vital signs and adequate blood pressure. Therefore, on the third hospital day, she was discharged home with a script for Zofran 4 mg p.o. p.r.n. nausea and oral script for Dilaudid 2 mg p.o. every 6 hours p.r.n. pain, quantity 20. Strong encouragement to quit drinking, whether or not she will quit drinking remains to be seen. She was discharged then from our hospital in stable condition with explicit drug and followup care. Total discharge time spent 39 minutes. Followup visit with Andrews Snow as scheduled. DIAMOND/NEELIMA/DAKOTAH DR: Edna TID: [id number] CC: AILYN CHAVEZ
== END 2020-11-23 14:39 | disposition home or self-care (01) | DRG 439 ==
LOC: ER 08:58 → 1 SOUTH 10:11
PROVIDERS: ADMIT Internal Medicine; ATTEND Internal Medicine
DX: K85.20 Alcohol induced acute pancreatitis without necrosis or infection (principal); G83.4 Cauda equina syndrome; E83.42 Hypomagnesemia; E87.6 Hypokalemia; F10.20 Alcohol dependence, uncomplicated; F17.210 Nicotine dependence, cigarettes, uncomplicated; F32.9 Major depressive disorder, single episode, unspecified; F43.10 Post-traumatic stress disorder, unspecified; F90.9 Attention-deficit hyperactivity disorder, unspecified type; F98.8 Other specified behavioral and emotional disorders with onset usually occurring in childhood and adolescence; I10 Essential (primary) hypertension; J45.990 Exercise induced bronchospasm; Y90.1 Blood alcohol level of 20-39 mg/100 ml; Z56.0 Unemployment, unspecified; Z82.49 Family history of ischemic heart disease and other diseases of the circulatory system
CPT/HCPCS: 36415; 74177; 80053; 82553; 83690; 83735; 84484; 85025; 93005; 96361; 96374; 96375; G0480; J1170; J1885; J2405; J2765; J3010; J3475; J3490; Q9967; 99285-25; J7030

== ENCOUNTER 2020-11-24 01:41 | Emergency (ER) | payer SELFPAY ==
[~2020-11-24] VITALS: Ht 162.6 cm; Wt 63.2 kg
[~2020-11-24 01:41] MED LIST: AMLO-186 PO; FLUO40CA9 PO; HYDR2TAB31 PO; LISD60CA PO
--- NOTE | 2020-11-24 01:59 | PHYS DOC ---
Past History Past Medical History: Anxiety, Depression, Hypertension, Pancreatitis, Other Additional Past Medical Histor: ADHD Past Surgical History: Other Additional Past Surgical Histo: BACK x 4 Smoking: Non-smoker Alcohol Use: Occasionally Drug Use: None General Adult HPI: HPI: ".. I am having chest pain.. and gut pain.. maybe.. it's my pancreatitis.. ".." I have Dilaudid at home but I am not opposed to take it more than 4 times a day" .." I was just discharged this morning" Patient is a 34 year old female who presents with above hx and complaints epigastric chest pain and abdomen pain. Pt. has know hx of recurrent bouts of panceatitis. Pt. had past medical history of hypertension, depression, chronic pancreatitis, pancreatic insufficiency, attention deficit disorder, history of alcohol abuse, hypokalemia, hypomagnesium, PTSD, asthma, nicotine dependence , anxiety disorder, and history of noncompliance with medical regimen. Patient was discharged on 11/21/2020 after a short admission and where she was treated for pain and hydration. Patient has history of 4 back surgeries for quad equina eye syndrome. Patient only follows with [facility] for care. Review of Systems: Review of Systems: Constitutional: Denies fever or chills Eyes: Denies change in visual acuity HENT: Denies nasal congestion or sore throat Respiratory: Denies cough or shortness of breath Cardiovascular: Complains of epigastric pain, GI: Complains of epigastric abdominal pain, nausea, vomiting,. Denies bloody stools or diarrhea : Denies dysuria Musculoskeletal: Denies back pain or joint pain Integument: Denies rash Neurologic: Denies headache, focal weakness or sensory changes Endocrine: Denies polyuria or polydipsia Lymphatic: Denies swollen glands Psychiatric: Denies depression or anxiety Family History: Family History: Has 1 sister that is healthy. Father is alive but has hypertension and history of myocardial infarct. Mother is alive and history of cardiac valve disease. Her son and daughter are healthy. Current Medications: Current Meds: See nursing for home meds Allergies: Allergies: Allergies Coded Allergies Type Severity Reaction Last Updated Verified No Known Drug Allergies 03/21/20 No Physical Exam: PE: Constitutional: In acute distress, non-toxic appearance. [] HENT: Normocephalic, atraumatic, bilateral external ears normal, oropharynx dry, no oral exudates, nose normal. [] Eyes: PERRLA, EOMI, conjunctiva normal, no discharge. [] Neck: Normal range of motion, no tenderness, supple, no stridor. [] Cardiovascular: Tachycardia heart rate regular rhythm, no murmur [] Lungs & Thorax: Bilateral breath sounds equal apex scattered wheezes auscultation [] Abdomen: Bowel sounds decreased, soft, epigastric tenderness, no masses, no pulsatile masses. Rebound to epigastric. Skin: Warm, dry, no erythema, no rash. [] Back: No tenderness, no CVA tenderness. [] Extremities: No tenderness, no cyanosis, no clubbing, ROM intact, no edema. No psoas sign Neurologic: Alert and oriented X 3, moves all extremities on request, does have distal sensory,, no focal deficits noted. [] Psychologic: Affect anxious, judgement normal, mood normal. [] EKG: EKG: My interpretation EKG shows a sinus tachycardia 115 bpm. No acute morphology. Time of this EKG was 222 minutes. [] Radiology/Procedures: Radiology/Procedures: [][place] [address] IMAGING REPORT Signed PATIENT: JOEY SOARES ACCOUNT: [id number] : 1985 LOCATION: ER AGE: 34 SEX: F EXAM STATUS: PRE ER ORD. PHYSICIAN: MELISSA BARKSDALE MD REASON: OMNI 300,30ML PO.PAIN, RECENT PANCREATITIS PROCEDURE: CT ABD PEL W/ORAL CONTRST ONLY CT ABDOMEN+PELVIS W INDICATION: PAIN, RECENT PANCREATITIS EXAM: Noncontrast CT of the abdomen and pelvis. Coronal and sagittal reformatted images were performed. PQRS compliance statement: One or more of the following individualized dose reduction techniques were utilized for this examination: 1. Automated exposure control 2. Adjustment of the mA and/or kV according to patient size 3. Use of iterative reconstruction technique COMPARISON: 11/21/2020 FINDINGS: No free air, free fluid, or fluid collection. Lower chest: The visualized lower lungs are aerated. No pleural or pericardial effusion. ABDOMEN: Liver: Diffuse hepatic steatosis Gallbladder and biliary: Normal gallbladder without radiopaque stone. Vicarious excretion of contrast in the gallbladder. Normal caliber bile ducts. Spleen: Normal spleen. Pancreas: Persistent peripancreatic haziness. No large peripancreatic fluid collection. Adrenal glands: Normal adrenal glands. Kidneys and ureters: No opaque urinary calculi. Normal kidneys and ureters. GI tract: The stomach is decompressed and poorly evaluated. Normal caliber small bowel and colon. Normal appendix. Vascular structures: Normal caliber abdominal aorta. Lymph nodes: No lymphadenopathy in the abdomen or pelvis. PELVIS: Genitourinary system: Normal bladder. Uterus is present. Mild pelvic free fluid. SKELETAL STRUCTURES AND SOFT TISSUES: Degenerative changes of the spine IMPRESSION: Persistent peripancreatic inflammation consistent with patient's history of pancreatitis. No organized fluid collection. Electronically signed by: Justin Valencia MD (11/24/2020 4:50 AM) [facility] DICTATED AND SIGNED BY: JUSTIN VALENCIA MD DATE: 11/24/20 [id number] CC: MELISSA BARKSDALE MD; ALCON JARVIS ~[facility] [address] [place] [address] IMAGING REPORT Signed PATIENT: OJEY SOARES ACCOUNT: [id number] : 1985 LOCATION: ER AGE: 34 SEX: F EXAM STATUS: PRE ER ORD. PHYSICIAN: MELISSA BARKSDALE MD REASON: pancreatitis PROCEDURE: ACUTE ABDOMEN SERIES XR ABDOMEN COMP ACUTE INDICATION: Reason: pancreatitis / Spl. Instructions: / History: . COMPARISON STUDY: None. FINDINGS: Lungs: Normal lung volume. No pulmonary mass or consolidation. The tracheobronchial tree and hilar structures are normal. Pleura: No pleural effusion or pneumothorax. Heart and Mediastinum: The cardiomediastinal silhouette is normal. The great vessels of the thorax are normal. Abdomen: Nonobstructive bowel gas pattern. No free air. IMPRESSION: 1. Nonobstructive bowel gas pattern. 2. No focal airspace disease. Electronically signed by: Justin Valencia MD (11/24/2020 3:41 AM) [facility] DICTATED AND SIGNED BY: JUSTIN VALENCIA MD DATE: 11/24/20 6735 CC: MELISSA BARKSDALE MD; ALCON JARVIS ~[facility]0 0 Heart Score: C/O Chest Pain: Yes HEART Score for Chest Pain: HEART Score for Chest Pain Response (Comments) Value History Slighlty/Non-Suspicious 0 ECG Normal 0 Age < 45 0 Risk Factors 1 or 2 Risk Factors 1 Troponin < Normal Limit 0 Total 1 Risk Factors: Risk Factors: DM, Current or recent (<one month) smoker, HTN, HLP, family history of CAD, obesity. Risk Scores: Score 0 - 3: 2.5% MACE over next 6 weeks - Discharge Home Score 4 - 6: 20.3% MACE over next 6 weeks - Admit for Clinical Observation Score 7 - 10: 72.7% MACE over next 6 weeks - Early Invasive Strategies Course & Med Decision Making: Course & Med Decision Making Pertinent Labs and Imaging studies reviewed. (See chart for details) Patient stay on a clear fluid diet for the next 48 hours. No solids. No milk products. Push clear fluids. Avoid any alcohol intake. Follow-up primary care. Return if any concerns. Impression; 1. Abdomen Pain 2. Chest Pain 3. Dehydration 4. Acute on Chronic Pancreatitis 5. Elevated lipase 660 6. Drug screen positive for alcohol and methamphetamine 7. Mild elevation AST 48 8. Anemia 9.9 [] Dragon Disclaimer: Dragon Disclaimer: This electronic medical record was generated, in whole or in part, using a voice recognition dictation system. Departure Departure: Referrals: ALCON JARVIS (PCP) Dragon Disclaimer This chart was dictated in whole or in part using Voice Recognition software in a busy, high-work load, and often noisy Emergency Department environment. It may contain unintended and wholly unrecognized errors or omissions. MELISSA BARKSDALE MD Nov 24, 2020 01:59
[2020-11-24] MEDS ORDERED: MORPHINE SULFATE 10 MG/ML SYRINGE. SQ ONE ×2 (02:15→05:30)
[2020-11-24] MEDS ORDERED: KETOROLAC 30 MG/ML VIAL. IVP ONE (02:15)
[2020-11-24] MEDS ORDERED: ONDANSETRON PF 4 MG/2 ML VIAL. IVP ONE (02:15)
[2020-11-24] MEDS ORDERED: IV RINGERS SOLUTION,LACTATED 1,000 ML IV SCH (02:15)
[2020-11-24] MEDS ORDERED: FAMOTIDINE 20 MG/2 ML VIAL IVP ONE (02:15)
[2020-11-24] MEDS ORDERED: IOHEXOL 300 MG/ML 75 ML VIAL. IV ONE (02:30)
[2020-11-24] MEDS ORDERED: CONTRAST GIVEN. MC PRN (02:45)
[2020-11-24 03:04] LABS: BASO % 0 % (0-3); EOS # 0.1 x10^3/uL (0.0-0.7); EOS % 1 % (0-3); HEMATOCRIT 30.7 % (36.0-47.0); HEMOGLOBIN 9.9 g/dL (12.0-15.5); LYMPH # 1.8 x10^3/uL (1.0-4.8); LYMPH % 27 % (24-48); MEAN CORPUSCULAR HEMOGLOBIN 32 pg (25-35); MEAN CORPUSCULAR HGB CONC 32 g/dL (31-37); MEAN CORPUSCULAR VOLUME 100 fL (79-100); MONO # 0.3 x10^3/uL (0.0-1.1); MONO % 4 % (0-9); NEUT # 4.6 x10^3uL (1.8-7.7); NEUT % 67 % (31-73); PLATELET COUNT 169 x10^3/uL (140-400); RED BLOOD COUNT 3.07 x10^6/uL (3.50-5.40); RED CELL DISTRIBUTION WIDTH 20.4 % (11.5-14.5); WHITE BLOOD COUNT 6.8 x10^3/uL (4.0-11.0)
[2020-11-24 03:22] LABS: CALCIUM 8.2 mg/dL (8.5-10.1); CREATININE 0.5 mg/dL (0.6-1.0); GFR 141.2; POTASSIUM 3.8 mmol/L (3.5-5.1)
[2020-11-24 03:24] LABS: ANISOCYTOSIS SLIGHT; PLT ESTIMATE ADEQUATE (ADEQUATE)
[2020-11-24] MEDS ORDERED: IOHEXOL 240 MG/ML 50ML VIAL. ONE (03:24)
[2020-11-24 03:25] LABS: MICROCYTOSIS SLIGHT
[2020-11-24 03:28] LABS: ALBUMIN 2.9 g/dL (3.4-5.0); DIRECT BILIRUBIN 0.4 mg/dL (0.0-0.2); TOTAL PROTEIN 6.3 g/dL (6.4-8.2)
--- NOTE | 2020-11-24 03:44 | RAD ---
XR ABDOMEN COMP ACUTE INDICATION: Reason: pancreatitis / Spl. Instructions: / History: . COMPARISON STUDY: None. FINDINGS: Lungs: Normal lung volume. No pulmonary mass or consolidation. The tracheobronchial tree and hilar st ructures are normal. Pleura: No pleural effusion or pneumothorax. Heart and Mediastinum: The cardiomediastinal silhouette is normal. The great vessels of the thorax ar e normal. Abdomen: Nonobstructive bowel gas pattern. No free air. IMPRESSION: 1. Nonobstructive bowel gas pattern. 2. No focal airspace disease. Electronically signed by: Charles Valencia MD (11/24/2020 3:41 AM) [facility]
[2020-11-24 04:28] LABS: BACTERIA,URINE 0 /HPF (0-FEW); BARBITURATES NEG (NEG); BENZODIAZEPINES NEG (NEG); BILIRUBIN,URINE NEG (NEG); CANNABINOIDS POS (NEG); CLARITY,URINE CLEAR; COCAINE NEG (NEG); COLOR,URINE YELLOW; GLUCOSE,URINE NEG (NEG); METHADONE NEG (NEG); NITRITE,URINE NEG (NEG); OPIATES POS (NEG); PHENCYCLIDINE NEG (NEG); RBC,URINE 0 /HPF (0-2); SQUAMOUS EPITHELIAL CELL,UR OCC /LPF; UROBILINOGEN,URINE 0.2 mg/dL (0.2 mg/dL); WBC,URINE OCC /HPF (0-4)
[2020-11-24 04:50] LABS: AMPHETAMINE/METHAMPHETAMINE POS (NEG)
--- NOTE | 2020-11-24 04:53 | RAD ---
CT ABDOMEN+PELVIS W INDICATION: PAIN, RECENT PANCREATITIS EXAM: Noncontrast CT of the abdomen and pelvis. Coronal and sagittal reformatted images were perform ed. PQRS compliance statement: One or more of the following individualized dose reduction techniques were utilized for this examinat ion: 1. Automated exposure control 2. Adjustment of the mA and/or kV according to patient size 3. Use of iterative reconstruction technique COMPARISON: 11/21/2020 FINDINGS: No free air, free fluid, or fluid collection. Lower chest: The visualized lower lungs are aerated. No pleural or pericardial effusion. ABDOMEN: Liver: Diffuse hepatic steatosis Gallbladder and biliary: Normal gallbladder without radiopaque stone. Vicarious excretion of contrast in the gallbladder. Normal caliber bile ducts. Spleen: Normal spleen. Pancreas: Persistent peripancreatic haziness. No large peripancreatic fluid collection. Adrenal glands: Normal adrenal glands. Kidneys and ureters: No opaque urinary calculi. Normal kidneys and ureters. GI tract: The stomach is decompressed and poorly evaluated. Normal caliber small bowel and colon. Nor mal appendix. Vascular structures: Normal caliber abdominal aorta. Lymph nodes: No lymphadenopathy in the abdomen or pelvis. PELVIS: Genitourinary system: Normal bladder. Uterus is present. Mild pelvic free fluid. SKELETAL STRUCTURES AND SOFT TISSUES: Degenerative changes of the spine IMPRESSION: Persistent peripancreatic inflammation consistent with patient's history of pancreatitis. No organize d fluid collection. Electronically signed by: Charles Valencia MD (11/24/2020 4:50 AM) [facility]
[2020-11-24 06:00] VITALS: BP 140/84
--- NOTE | 2020-11-27 13:33 | EKG ---
[address] [address] Test Date: 2020-11-24 Test Time: 02:22:24 Pat Name: JOEY SOARES Department: Room: Gender: F Director Transportation: MARQUITA : 1985 Requested By: MELISSA BARKSDALE Order Number: [id number] Reading MD: Measurements Intervals [place] Rate: 115 P: 56 KS: 144 QRS: 55 QRSD: 80 T: 59 QT: 336 QTc: 467 Interpretive Statements SINUS TACHYCARDIA OTHERWISE NORMAL ECG RI6.02 No previous ECG available for comparison
== END 2020-11-24 06:19 | disposition home or self-care (01) ==
LOC: ER 01:41
DX: K86.1 Other chronic pancreatitis (principal); E86.0 Dehydration; D64.9 Anemia, unspecified; R74.8 Abnormal levels of other serum enzymes; R07.89 Other chest pain; I10 Essential (primary) hypertension; F41.9 Anxiety disorder, unspecified; F32.9 Major depressive disorder, single episode, unspecified
CPT/HCPCS: 36415; 74022; 74176; 80048; 80076; 80307; 81001; 82150; 82550; 83690; 84484; 85025; 93005; 96361; 96372; 96374; 96375; 99285; G0480; J1885; J2270; J2405; J3490; J7120

== ENCOUNTER 2021-01-27 10:07 | Inpatient (IN) | payer MEDICAID ==
[~2021-01-27] VITALS: Ht 162.6 cm; Wt 58.4 kg
[2021-01-27] MEDS ORDERED: ONDANSETRON PF 4 MG/2 ML VIAL. IVP ONE ×2 (10:45→13:00)
[2021-01-27] MEDS ORDERED: CONTRAST GIVEN. MC PRN (10:45)
[2021-01-27] MEDS ORDERED: MORPHINE SULFATE 4 MG/ML DISP.SYRIN. IV ONE (10:45)
[2021-01-27] MEDS ORDERED: IOHEXOL 300 MG/ML 75 ML VIAL. IV ONE (10:45)
--- NOTE | 2021-01-27 10:47 | PHYS DOC ---
Past History Past Medical History: Anxiety, Depression, Hypertension, Pancreatitis, Other Additional Past Medical Histor: ADHD (JEET DALAL) Past Surgical History: Other Additional Past Surgical Histo: BACK x 4 (JEET DALAL) Smoking: Non-smoker Alcohol Use: Occasionally Additional Alcohol Information: social drinker Drug Use: None (JEET DALAL) General Adult EDM: Chief Complaint: ABDOMINAL PAIN HPI: HPI: Patient is a 35 year old female with history of pancreatitis who presents with 5-day history of emesis and 1 day history of abdominal pain. Patient states her abdominal pain is epigastric and right upper quadrant, stabbing 01/12. She states this feels like her prior episodes of pancreatitis. She reports associated diarrhea for "a few weeks.". Her pain is exacerbated by belching, sneezing, deep inspiration, and laying down. Patient states she feels better when she sits upright. Patient denies chest pain, palpitations, shortness of breath, cough, dysuria, hematuria, bloody emesis or bloody stools. She states she has followed with her primary care provider about her pancreatitis, and she is supposed to see a pet ambassador. She has not yet received a referral or seen the specialist. Patient has no other complaints at this time. (JEET DALAL) Review of Systems: Review of Systems: Constitutional: Denies fever or chills HENT: Denies nasal congestion or sore throat Respiratory: See HPI Cardiovascular: See HPI GI: See HPI : See HPI Musculoskeletal: Denies back pain or joint pain Integument: Denies laceration, abrasion or rash Neurologic: Denies headache, focal weakness or sensory changes Endocrine: Denies polyuria or polydipsia (JEET DALAL) Current Medications: Current Meds: Current Medications Medications (Trade) Dose Ordered Sig/Paco Start Time Stop Time Status Last Admin Dose Admin Iohexol (Omnipaque 300 Mg/ml) 75 ml 1X ONCE 01/27/21 10:30 01/27/21 10:31 UNV Morphine Sulfate (Morphine 4mg Syringe) 4 mg 1X ONCE 01/27/21 10:30 01/27/21 10:31 UNV Ondansetron HCl (Zofran) 4 mg 1X ONCE 01/27/21 10:30 01/27/21 10:31 UNV (JEET DALAL) Allergies: Allergies: Allergies Coded Allergies Type Severity Reaction Last Updated Verified No Known Drug Allergies 01/27/21 No (JEET DALAL) Physical Exam: PE: Constitutional: Patient is tearful. Well developed, well nourished, non-toxic appearance. Cardiovascular: Heart rate elevated with regular rhythm, no murmur. Lungs & Thorax: Bilateral breath sounds clear to auscultation. Abdomen: Hyperactive bowel sounds, no masses, no pulsatile masses. Abdominal exam limited secondary to voluntary guarding. Skin: Warm, dry, no erythema, no rash. Back: No tenderness, no CVA tenderness. Extremities: No tenderness, no cyanosis, no clubbing, ROM intact, no edema. Neurologic: Alert and oriented x3, normal motor function, normal sensory function, no focal deficits noted. (JEET DALAL) Current Patient Data: Labs: Laboratory Tests Test 01/27/21 10:35 White Blood Count 10.0 x10^3/uL (4.0-11.0) Red Blood Count 4.37 x10^6/uL (3.50-5.40) Hemoglobin 15.6 g/dL (12.0-15.5) Hematocrit 46.1 % (36.0-47.0) Mean Corpuscular Volume 106 fL (79-100) Mean Corpuscular Hemoglobin 36 pg (25-35) Mean Corpuscular Hemoglobin Concent 34 g/dL (31-37) Red Cell Distribution Width 18.1 % (11.5-14.5) Platelet Count 158 x10^3/uL (140-400) Neutrophils (%) (Auto) 79 % (31-73) Lymphocytes (%) (Auto) 15 % (24-48) Monocytes (%) (Auto) 5 % (0-9) Eosinophils (%) (Auto) 1 % (0-3) Basophils (%) (Auto) 1 % (0-3) Neutrophils # (Auto) 7.9 x10^3uL (1.8-7.7) Lymphocytes # (Auto) 1.5 x10^3/uL (1.0-4.8) Monocytes # (Auto) 0.5 x10^3/uL (0.0-1.1) Eosinophils # (Auto) 0.1 x10^3/uL (0.0-0.7) Basophils # (Auto) 0.1 x10^3/uL (0.0-0.2) Sodium Level 134 mmol/L (136-145) Potassium Level 3.9 mmol/L (3.5-5.1) Chloride Level 93 mmol/L (98-107) Carbon Dioxide Level 18 mmol/L (21-32) Anion Gap 23 (6-14) Blood Urea Nitrogen 5 mg/dL (7-20) Creatinine 0.7 mg/dL (0.6-1.0) Estimated GFR (Cockcroft-Gault) 95.2 BUN/Creatinine Ratio 7 (6-20) Glucose Level 76 mg/dL (70-99) Lactic Acid Level 3.5 mmol/L (0.4-2.0) Calcium Level 9.5 mg/dL (8.5-10.1) Total Bilirubin 1.1 mg/dL (0.2-1.0) Aspartate Amino Transf (AST/SGOT) 201 U/L (15-37) Alanine Aminotransferase (ALT/SGPT) 102 U/L (14-59) Alkaline Phosphatase 140 U/L (46-116) Total Protein 8.5 g/dL (6.4-8.2) Albumin 4.1 g/dL (3.4-5.0) Albumin/Globulin Ratio 0.9 (1.0-1.7) Lipase 3442 U/L (73-393) Vital Signs: VS - Last 72 Hours, by Label Date Time Temp Pulse Resp B/P (MAP) Pulse Ox O2 Delivery O2 Flow Rate FiO2 01/27/21 11:21 24 100 01/27/21 11:14 20 98 Room Air 01/27/21 10:40 22 98 01/27/21 10:18 98.3 116 24 166/96 (119) 100 (JEET DALAL) Radiology/Procedures: Radiology/Procedures: PROCEDURE: CT ABD PELV W/ IV CONTRST ONLY PQRS Compliance Statement: One or more of the following individualized dose reduction techniques were utilized for this examination: 1. Automated exposure control 2. Adjustment of the mA and/or kV according to patient size 3. Use of iterative reconstruction technique CT abdomen/pelvis with contrast 01/27/2021 10:33 AM INDICATION: Upper abdominal pain with nausea and vomiting COMPARISON: 11/24/2020 TECHNIQUE: Multiple axial CT images of the abdomen and pelvis were obtained after the intravenous administration of 73 mL Isovue-370. Coronal and sagittal reformats are provided. FINDINGS: Lung bases are clear. Heart size within normal limits. There is diffuse hypoattenuation of the hepatic parenchyma suggestive of hepatic steatosis. This may limit evaluation for hepatic masses. Spleen, adrenal glands and gallbladder are normal in appearance. There are peripancreatic inflammatory changes suggestive of acute pancreatitis. There is no definite necrosis identified. Findings suggestive of acute interstitial edematous pancreatitis. There is a hypoattenuating lesion within the body of pancreas measuring 8.5 mm (series 2, image 28). There is minimal fluid identified within the retroperitoneum. No organized fluid collection. Abdominal aorta is normal in course and caliber. No pathologically enlarged lymph nodes are identified in abdomen and pelvis. There is no free intraperitoneal air. The kidneys enhance symmetrically. There is no suspicious renal mass. There is no hydronephrosis. There are no suspected calculi within the kidneys, ureters or urinary bladder. Small and large bowel are normal in caliber. Colon is underdistended, limiting evaluation. There is no evidence for bowel obstruction. There are no pericolonic inflammatory changes. A normal, nondilated appendix is visualized without adjacent inflammatory changes. Urinary bladder is within normal limits given degree of distention. Uterus and adnexa are normal by CT. No suspicious osseous abnormality is identified. IMPRESSION: Acute interstitial edematous pancreatitis with similar degree of peripancreatic inflammatory changes as compared to prior examination from 11/24/2020. There is an 8.5 mm hypoattenuating lesion within the body of the pancreas which is nonspecific. Consideration may be given for a cyst versus side branch intraductal papillary mucinous neoplasm versus pseudocyst. Nonemergent MRCP could be of benefit for further evaluation. No pancreatic ductal dilatation. No organized fluid collection is identified. Diffuse hepatic steatosis. Electronically signed by: Shelly Xavier MD (01/27/2021 11:25 AM) [id number] (JEET DALAL) Heart Score: C/O Chest Pain: No (JEET DALAL) Course & Med Decision Making: Course & Med Decision Making Pertinent Labs and Imaging studies reviewed. (See chart for details) Patient is tearful on exam and is not able to relax her abdominal muscles so that I may examine for specific tender points or special signs. Patient does request Dilaudid, but I advised that morphine should be sufficient and last long enough to ease her pain. Patient is agreeable. Patient states the morphine did not improve her pain to any significant degree. She will be given [address] Don, patient will be admitted for due to pancreatitis with lactic acidosis and pain management. Patient is to be NPO. Patient is agreeable to admission. (JEET DALAL) Dragon Disclaimer: Dragon Disclaimer: This electronic medical record was generated, in whole or in part, using a voice recognition dictation system. (JEET DALAL) Attending Co-Sign The patient was seen and interviewed as well as examined at the bedside. The chart was reviewed. The case was discussed. Agree with the plan of care. (OLIVIA ORTIZ DO) Departure Departure: Impression: Primary Impression: Acute pancreatitis Qualified Codes: K85.80 - Other acute pancreatitis without necrosis or infection Additional Impressions: Lactic acidosis Intractable abdominal pain Disposition: ADMITTED INPATIENT Admitting Physician: Lety Don (JEET DALAL) Condition: STABLE Referrals: ALCON JARVIS (PCP) JEET DALAL Jan 27, 2021 10:47 OLIVIA ORTIZ DO Jan 28, 2021 06:15
[2021-01-27 10:51] LABS: BASO # 0.1 x10^3/uL (0.0-0.2); BASO % 1 % (0-3); EOS # 0.1 x10^3/uL (0.0-0.7); EOS % 1 % (0-3); HEMATOCRIT 46.1 % (36.0-47.0); HEMOGLOBIN 15.6 g/dL (12.0-15.5); LYMPH # 1.5 x10^3/uL (1.0-4.8); LYMPH % 15 % (24-48); MEAN CORPUSCULAR HEMOGLOBIN 36 pg (25-35); MEAN CORPUSCULAR HGB CONC 34 g/dL (31-37); MEAN CORPUSCULAR VOLUME 106 fL (79-100); MONO # 0.5 x10^3/uL (0.0-1.1); MONO % 5 % (0-9); NEUT # 7.9 x10^3uL (1.8-7.7); NEUT % 79 % (31-73); PLATELET COUNT 158 x10^3/uL (140-400); RED BLOOD COUNT 4.37 x10^6/uL (3.50-5.40); RED CELL DISTRIBUTION WIDTH 18.1 % (11.5-14.5)
[2021-01-27 11:02] LABS: CALCIUM 9.5 mg/dL (8.5-10.1); CREATININE 0.7 mg/dL (0.6-1.0); GFR 95.2; POTASSIUM 3.9 mmol/L (3.5-5.1)
[2021-01-27 11:09] LABS: ALBUMIN 4.1 g/dL (3.4-5.0); ALBUMIN/GLOBULIN RATIO 0.9 (1.0-1.7); TOTAL BILIRUBIN 1.1 mg/dL (0.2-1.0); TOTAL PROTEIN 8.5 g/dL (6.4-8.2)
--- NOTE | 2021-01-27 11:27 | RAD ---
PQRS Compliance Statement: One or more of the following individualized dose reduction techniques were utilized for this examinat ion: 1. Automated exposure control 2. Adjustment of the mA and/or kV according to patient size 3. Use of iterative reconstruction technique CT abdomen/pelvis with contrast 01/27/2021 10:33 AM INDICATION: Upper abdominal pain with nausea and vomiting COMPARISON: 11/24/2020 TECHNIQUE: Multiple axial CT images of the abdomen and pelvis were obtained after the intravenous adm inistration of 73 mL Isovue-370. Coronal and sagittal reformats are provided. FINDINGS: Lung bases are clear. Heart size within normal limits. There is diffuse hypoattenuation of the hepati c parenchyma suggestive of hepatic steatosis. This may limit evaluation for hepatic masses. Spleen, a drenal glands and gallbladder are normal in appearance. There are peripancreatic inflammatory changes suggestive of acute pancreatitis. There is no definite necrosis identified. Findings suggestive of a cute interstitial edematous pancreatitis. There is a hypoattenuating lesion within the body of pancre as measuring 8.5 mm (series 2, image 28). There is minimal fluid identified within the retroperitoneu m. No organized fluid collection. Abdominal aorta is normal in course and caliber. No pathologically enlarged lymph nodes are identified in abdomen and pelvis. There is no free intraperitoneal air. The kidneys enhance symmetrically. There is no suspicious renal mass. There is no hydronephrosis. The re are no suspected calculi within the kidneys, ureters or urinary bladder. Small and large bowel are normal in caliber. Colon is underdistended, limiting evaluation. There is n o evidence for bowel obstruction. There are no pericolonic inflammatory changes. A normal, nondilated appendix is visualized without adjacent inflammatory changes. Urinary bladder is within normal limits given degree of distention. Uterus and adnexa are normal by C T. No suspicious osseous abnormality is identified. IMPRESSION: Acute interstitial edematous pancreatitis with similar degree of peripancreatic inflammatory changes as compared to prior examination from 11/24/2020. There is an 8.5 mm hypoattenuating lesion within the body of the pancreas which is nonspecific. Consideration may be given for a cyst versus side branch intraductal papillary mucinous neoplasm versus pseudocyst. Nonemergent MRCP could be of benefit for f urther evaluation. No pancreatic ductal dilatation. No organized fluid collection is identified. Diffuse hepatic steatosis. Electronically signed by: Shelly Xavier MD (01/27/2021 11:25 AM) [id number]
[2021-01-27] MEDS ORDERED: HYDROmorphone PF 1 MG/ML DISP.SYRIN IVP ONE (11:30)
[2021-01-27] MEDS ORDERED: LIDO:MAALOX 1:1 20 ML SINGLE DOSE. PO ONE (11:45)
[2021-01-27] MEDS ORDERED: IV NORMAL SALINE 1,000ML 1,000 ML IV ONE (11:45)
[2021-01-27 12:55] LABS: MICROCYTOSIS SLIGHT
[2021-01-27 12:56] LABS: TARGET CELLS PRESENT; TEAR DROP CELLS PRESENT
[2021-01-27 12:59] LABS: ANISOCYTOSIS SLIGHT
[2021-01-27] MEDS ORDERED: diphenhydrAMINE 50 MG/ML VIAL IVP ONE (13:00)
[2021-01-27 13:01] LABS: PLT ESTIMATE ADEQUATE (ADEQUATE)
[2021-01-27] MEDS: HYDROmorphone PF 1 MG/ML DISP.SYRIN IV PRN ×5 (13:41→21:58)
[2021-01-27 14:19] LABS: COLOR,URINE YELLOW
[2021-01-27 14:20] LABS: BACTERIA,URINE 0 /HPF (0-FEW); BILIRUBIN,URINE NEG (NEG); CLARITY,URINE CLEAR; GLUCOSE,URINE NEG (NEG); NITRITE,URINE NEG (NEG); RBC,URINE 0 /HPF (0-2); SQUAMOUS EPITHELIAL CELL,UR MOD /LPF; UROBILINOGEN,URINE 0.2 mg/dL (0.2 mg/dL); WBC,URINE OCC /HPF (0-4)
[2021-01-27 14:43] LABS: U PREG PATIENT NEGATIVE (NEG)
[2021-01-27 15:11] VITALS: BP 148/100
--- NOTE | 2021-01-27 15:19 | NUR ---
PATIENT IS A 35 Y O FEMALE ARRIVED VIA EMS. PATIENT IS A/O X 4, C/O PAIN IN UPPER ABDOMEN AND RUQ. PATIENT STATED WAS UNABLE TO EAT FOR 5 DAYS, BUT HER PAIN STRTED LAST NIGHT. PATIENT WAS ORIENTED TO THE ROOM AND HOSPITAL POLICIES, BELONGINGS OBTAINED, PATIENT IS CURRENTLY IN A BED, REQUESTED PAIN MEDICATION. PATIENT WAS INFORMED THAT PAIN MED DUE IS AT 1541. PATIENT VERBALIZED UNDERSTANDING.
[2021-01-27] MEDS: ONDANSETRON PF 4 MG/2 ML VIAL. IVP PRN ×2 (15:51→19:55)
[2021-01-27] MEDS ORDERED: cloNIDine TTS-1 1 PATCH PATCH TD SCH (17:30)
[2021-01-27] MEDS: IV DEXTROSE 5 %-0.45 % NACL 1,000 ML IV SCH (19:56)
[2021-01-27 20:14] VITALS: BP 144/99
[2021-01-27] MEDS: METOCLOPRAMIDE HCL 10 MG/2 ML VIAL. IVP PRN (21:58)
[2021-01-27 23:35] VITALS: BP 131/90
[2021-01-28] MEDS: HYDROmorphone PF 1 MG/ML DISP.SYRIN IV PRN ×5 (00:15→10:21)
[2021-01-28] MEDS: IV DEXTROSE 5 %-0.45 % NACL 1,000 ML IV SCH ×2 (01:28→10:21)
[2021-01-28 06:10] VITALS: BP 148/107
[2021-01-28] MEDS: METOCLOPRAMIDE HCL 10 MG/2 ML VIAL. IVP PRN ×3 (06:48→19:43)
[2021-01-28 07:19] LABS: BASO % 0 % (0-3); EOS # 0.1 x10^3/uL (0.0-0.7); EOS % 2 % (0-3); HEMATOCRIT 35.1 % (36.0-47.0); HEMOGLOBIN 11.7 g/dL (12.0-15.5); LYMPH # 1.6 x10^3/uL (1.0-4.8); LYMPH % 29 % (24-48); MEAN CORPUSCULAR HEMOGLOBIN 36 pg (25-35); MEAN CORPUSCULAR HGB CONC 33 g/dL (31-37); MEAN CORPUSCULAR VOLUME 107 fL (79-100); MONO # 0.4 x10^3/uL (0.0-1.1); MONO % 6 % (0-9); NEUT # 3.4 x10^3uL (1.8-7.7); NEUT % 62 % (31-73); PLATELET COUNT 92 x10^3/uL (140-400); RED BLOOD COUNT 3.29 x10^6/uL (3.50-5.40); RED CELL DISTRIBUTION WIDTH 17.4 % (11.5-14.5); WHITE BLOOD COUNT 5.4 x10^3/uL (4.0-11.0)
[2021-01-28 07:34] LABS: ALBUMIN 2.7 g/dL (3.4-5.0); ALBUMIN/GLOBULIN RATIO 0.9 (1.0-1.7); CALCIUM 7.7 mg/dL (8.5-10.1); CREATININE 0.7 mg/dL (0.6-1.0); GFR 95.2; POTASSIUM 3.3 mmol/L (3.5-5.1); TOTAL BILIRUBIN 0.8 mg/dL (0.2-1.0); TOTAL PROTEIN 5.8 g/dL (6.4-8.2)
[2021-01-28] MEDS: ONDANSETRON PF 4 MG/2 ML VIAL. IVP PRN (09:49)
[2021-01-28 11:03] VITALS: BP 138/91
[2021-01-28] MEDS ORDERED: HYDROmorphone PF 1 MG/ML DISP.SYRIN IVP PRN (12:15)
[2021-01-28] MEDS: POTASSIUM CL 40MEQ D5-0.45NACL 1,000 ML IV SCH (13:58)
--- NOTE | 2021-01-28 14:13 | HP ---
ADMIT DATE: 01/27/2021 HISTORY OF PRESENT ILLNESS: The patient is a 35-year-old female patient who presented to the Emergency Room with a complaint of a 5-day history of recurrent episodes of vomiting and one day history of abdominal pain started last night. Her abdominal pain is mostly epigastric in the right upper quadrant, described as stabbing in nature, rated as 9/10, feels like her prior episodes of pancreatitis. She has also had associated diarrhea for a few weeks. Her pain exacerbated by punching, sneezing, deep inspiration and lying down. She stated that she feels better when she sits upright. She denied any chest pain, palpitations, shortness of breath, cough, dysuria, hematuria, bloody emesis or bloody stool. She apparently has followed with her primary care physician about her pancreatitis and she is supposed to see a nuclear worker technician. She has not yet received a referral or seen a specialist. The patient has no other complaint and stated that she has not drank any alcohol for a month now. She was extensively investigated in the Emergency Room and had lab work as well as imaging studies. Her lab work showed that she has markedly impaired kidneys, liver enzymes and elevated serum lipase at 3442. Her lactic acid was high at 3.5. Her urinalysis was essentially unremarkable and urine test was negative. Her chemistry was mostly unremarkable and her coronavirus by rapid testing was negative. She did have a CT scan of the abdomen and pelvis with IV contrast showing that she has acute interstitial edematous pancreatitis with similar degrees of peripancreatic inflammatory changes as compared to prior examination from 11/24/2020. There is an 8.5-mm hypoattenuating lesion within the body of the pancreas, which is nonspecific. Consideration may be given for a cystic versus side branch intraductal papillary mucinous neoplasm versus pseudocyst nonemergent, MRCP could be of benefit for further evaluation. No pancreatic ductal dilatation. No organized fluid collection is identified. She has diffuse hepatic steatosis. The patient was admitted with acute pancreatitis, lactic acidosis and diffuse hepatic steatosis. She will be kept n.p.o., started on IV fluid, IV pain medication as well as antiemetic. PAST MEDICAL HISTORY: Significant for hypertension and exercise-induced bronchial asthma. She has recurrent episodes of pancreatitis, the first episode was on 10/01/2020, the second was in 12/2020 and this is the third episode of pancreatitis, although she adamantly claims that she has not drank any alcohol over the last month. PAST SURGICAL HISTORY: Significant for back surgery. She has two episodes of cauda equina syndrome. She had laminectomy and diskectomy. ALLERGIES: She has no known drug allergies. MEDICATIONS: She is on CBD gummies. She is also on fluoxetine and Zofran. FAMILY HISTORY: She has 1 sister, about 15 years older and currently healthy. Her father is alive at the age of 75, he is known to have hypertension and mother is alive at the age of 65 and seemingly healthy. SOCIAL HISTORY: She is , has a son and a daughter. She smokes about half a pack a day or less. She has not drunk alcohol for the last month according to her. She uses a CBD gummies. 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 REVIEW OF SYSTEMS: She stated that she has had diarrhea that she seemed to be oily for the last 3 months. She also lost weight and she is used to weigh about 180 pounds in May of this year. Now, she is down to 125 pounds. PHYSICAL EXAMINATION: GENERAL: On arrival to the Emergency Room, she looked well and was clearly in no apparent respiratory distress. There was no pallor, jaundice, cyanosis or thyromegaly. No jugular venous distention. No limb edema. VITAL SIGNS: Her heart rate was 97, blood pressure was 149/115. Her temperature was 98.3, and respiratory rate was 18, and oxygen saturation was 100% on room air. HEAD, EYES, EARS, NOSE, AND THROAT: Normocephalic, atraumatic. NECK: Supple. HEART: Normal first and second heart sounds, no gallop or murmur. CHEST: Shows central trachea, equal bilateral chest expansion, air entry, vesicular breath sounds, no crepitation or rhonchi. ABDOMEN: Markedly tender in the epigastric and right upper quadrant; however, there is no guarding or rigidity. No organomegaly. All hernial orifice intact. Bowel sounds normal. NEUROLOGIC: She was grossly intact. LABORATORY DATA: Her lab work on admission showed a white cell count of 10,000, hemoglobin 15.6, hematocrit 46, MCV 106 and platelet count of 158,000 with automated differential showed 79% polymorphs, 15% lymphocytes, 5% monocytes. Her chemistry showed a serum sodium 134, potassium 3.9, chloride 93, bicarbonate 18, anion gap of 23, BUN of 5, creatinine 0.7. Estimated GFR was 95 mL per minute. Her glucose was 76. Lactic acid initially was 3.5. She was treated with IV fluid and her repeat lactic acid was down to 1.5. Her calcium was 9.5. Total bilirubin 1.1. AST, ALT, alkaline phosphatase are all elevated. Her total protein was 8.5, albumin was 4.1, and serum lipase was 3442. Her urinalysis essentially unremarkable. ASSESSMENT AND PLAN: In summary, this is a 35-year-old female patient being admitted for the third time with third episode of acute pancreatitis with probably alcohol-induced hepatitis as well as a new lesion on the imaging studies consistent with either cyst versus side branch intraductal papillary mucinous neoplasm versus pseudocyst and MRCP could be of benefit for further evaluation and the patient will be kept n.p.o., will continue with IV fluid, IV pain medication and antiemetic. We will repeat her labs and decide on further management. She might eventually require transfer to [facility] for MRCP and GI consult. SENDY DR: Viktoria TID: [id number]
--- NOTE | 2021-01-28 14:46 | PN ---
DATE: 01/28/2021 SUBJECTIVE: The patient is resting, slightly propped up in bed, in no apparent distress. She continued to complain of pain, has also nausea and vomited several times. However, she denied any chills, rigors or fever. PHYSICAL EXAMINATION: GENERAL: When I examined her, she looked well and was clearly in no apparent respiratory distress. She was pale, not jaundiced, cyanosis, no lymphadenopathy, no thyromegaly. No jugular venous distention. No lower limb edema. VITAL SIGNS: Her heart rate was 75, blood pressure is 138/91, temperature 98.6, respiratory rate 20, and oxygen saturation was 100%. HEAD, EYES, EARS, NOSE, AND THROAT: Normocephalic, atraumatic. NECK: Supple. HEART: Showed normal first and second heart sounds, no gallop or murmur. CHEST: Clear to auscultation, no crepitation or rhonchi. ABDOMEN: Distended. Tenderness mostly in the epigastric and right upper quadrant area; however, there is no guarding or rigidity. No organomegaly. All hernial orifice intact. Bowel sounds normal. NEUROLOGIC: She is grossly intact. Her intake and output are incompletely recorded. LABORATORY DATA: This morning showed a serum white cell count 5400, hemoglobin 11.7, hematocrit 35, MCV 107, and a platelet count of 92,000. Her chemistry showed a serum sodium 135, potassium 3.3, chloride 99, bicarbonate 24, anion gap of 12, BUN 3, creatinine 0.7. Estimated GFR was 95 mL per minute. Her glucose was 90, calcium was 7.7. Total bilirubin, AST, ALT, alkaline phosphatase all trending down, her total protein was 5.8, albumin 2.7. Her serum lipase was 2658, down from 3442. ASSESSMENT: 1. Acute pancreatitis. 2. Chronic pancreatitis. 3. Hypertension. 4. Anxiety and depression. 5. Attention deficit hyperactivity disorder. PLAN: To continue with IV pain medication. Continue with n.p.o. status. I changed her IV fluid to D5W with 40 mEq of potassium chloride. I will repeat all her lab work tomorrow and also CT scan of the abdomen and pelvis with contrast and if there is no indication or need for urgent intervention, we might be able to discharge her home once all her inflammation completely subsided and she can be seen by the Gastroenterology team at [facility] as an outpatient. LEANDRO DR: Viktoria TID: [id number]
[2021-01-28] MEDS: HYDROmorphone PF 1 MG/ML DISP.SYRIN IVP PRN ×4 (14:57→22:51)
[2021-01-28 15:27] VITALS: BP 153/102
[2021-01-28 20:01] VITALS: BP 160/117
[2021-01-28 20:59] VITALS: BP 152/95
[2021-01-29] MEDS: POTASSIUM CL 40MEQ D5-0.45NACL 1,000 ML IV SCH ×3 (00:25→21:23)
[2021-01-29] MEDS: METOCLOPRAMIDE HCL 10 MG/2 ML VIAL. IVP PRN ×2 (02:06→09:37)
[2021-01-29] MEDS: HYDROmorphone PF 1 MG/ML DISP.SYRIN IVP PRN ×9 (02:06→22:26)
[2021-01-29 06:05] VITALS: BP 147/109
[2021-01-29 07:27] LABS: ALBUMIN 2.7 g/dL (3.4-5.0); ALBUMIN/GLOBULIN RATIO 0.8 (1.0-1.7); CALCIUM 8.6 mg/dL (8.5-10.1); CREATININE 0.4 mg/dL (0.6-1.0); GFR 181.6; POTASSIUM 3.7 mmol/L (3.5-5.1); TOTAL BILIRUBIN 0.6 mg/dL (0.2-1.0)
[2021-01-29] MEDS ORDERED: IOHEXOL 300 MG/ML 75 ML VIAL. IV ONE (08:45)
--- NOTE | 2021-01-29 10:36 | RAD ---
CT of the abdomen and pelvis with contrast 01/29/2021 10:29 AM Indication: Reason: worsening abdominal pain / Spl. Instructions: / History: Comparison study: CT abdomen and pelvis with contrast January 27, 2021 Technique: Multidetector CT imaging of the abdomen and pelvis was performed following the administrat ion of IV contrast. Findings: The partially visualized lung bases demonstrate no acute abnormality. Similar findings of acute pancreatitis noted. No overt necrosis is identified. Rounded hypodense lesi on in the pancreatic body is unchanged. Vicarious excretion of contrast into the gallbladder lumen no diogenes. The liver is low in attenuation suggesting steatosis. Spleen and adrenal glands are unremarkable . Kidneys are unremarkable. There is no bowel obstruction. The bladder is predominantly decompressed. A small amount of free fluid is seen in the pelvis, mildly increased in the interim. Portal vein and splenic vein remain patent. No pneumoperitoneum is seen. No acute osseous changes are identified. IMPRESSION: 1.Similar changes of acute pancreatitis. No necrosis is identified 2. Grossly unchanged small hypodense lesion in the pancreatic body which could represent a small cyst , pseudocyst, or small side branch intraductal papillary mucinous neoplasm. CT DOSING PQRS STATEMENT: One or more of the following individualized dose reduction techniques were utilized for this examinat ion: 1. Automated exposure control 2. Adjustment of the mA and/or kV according to patient size 3. Use of iterative reconstruction technique Electronically signed by: Yonathan Moore MD (01/29/2021 10:33 AM) [id number]
[2021-01-29 10:59] VITALS: BP 137/97
--- NOTE | 2021-01-29 14:41 | NUR ---
NURSING NOTE PT IN BED THIS AM UPON ASSESSMENT. PT IS A&O. PT HAS BEEN IN PAIN ALL DAY. PT ON DILAUDID Q2 HRS BUT PAIN IS NOT CONTROLLED STATES HER PAIN LEVEL IS STILL 7-9/10. PT C/O NAUSEA AND HAS VOMITING GREEN BILE. PER DR SAVAGE, CONTINUE NPO TODAY, ICE CHIPS ONLY, LIPASE NUMBERS ARE DECREASING AND MAYBE BY MORNING CAN SEE HOW SHE IS AND TRY LIQUIDS. PT HAD SHOWER TODAY. PT IS CALM AND COOPERATIVE WITH CARES. GAB CRISTOBAL
[2021-01-29] MEDS: ONDANSETRON PF 4 MG/2 ML VIAL. IVP PRN (16:22)
--- NOTE | 2021-01-29 18:08 | NUR ---
NURSING NOTE PT CALLED FOR PAIN MEDICATION, PT JUST GOT HER PRN DILAUDID 1 HOUR AGO. MEDICATION IS NOT DUE FOR ANOTHER HOUR. PT STATES "DID I WAKE UP AND CALL FOR A DOSE ALREADY? I FORGOT THAT I TOOK IT AT 5". THIS NURSE SPOKE WITH PT ABOUT SIGNIFICANCE OF PAIN, AND OFFERED TO CALL LET THE MD KNOW ABOUT HER PAIN LEVEL 02/11. PT STATES "NO, I CAN MAKE IT ANOTHER HOUR". SUSU DE GUZMAN.
[2021-01-29 19:59] VITALS: BP 139/103
--- NOTE | 2021-01-29 22:41 | PN ---
DATE: 01/29/2021 SUBJECTIVE: The patient is resting, slightly propped up in bed, no apparent distress. She continued to complain of abdominal pain, nausea, but no vomiting. OBJECTIVE: GENERAL: On examining her, she looked well and was clearly in no apparent respiratory distress. She was pale, but not jaundiced or cyanosed. No lymphadenopathy, no thyromegaly, no jugular venous distention. No lower limb edema. VITAL SIGNS: Her heart rate was 109, blood pressure is 137/97, temperature 97.6, respiratory rate was 16 and oxygen saturation was 96% on room air. HEAD, EYES, EARS, NOSE, AND THROAT: Normocephalic, atraumatic. NECK: Supple. HEART: Showed normal first and second heart sounds, no gallop, rub or murmur. CHEST: Clear to auscultation, no crepitation, no rhonchi. ABDOMEN: Distended, soft with tenderness mostly in the epigastric and right upper quadrant. No guarding or rigidity. No organomegaly. All hernial orifices intact. Bowel sounds normal. NEUROLOGIC: She was grossly intact. Her intake was 1000, no output was recorded. LABORATORY DATA: This morning showed a serum sodium 137, potassium 3.57, chloride 102, bicarbonate 28, anion gap of 7, BUN 1, creatinine 0.4. Estimated GFR was 181 mL per minute. Her glucose 119, calcium was 8.6. Total bilirubin, AST, ALT, alkaline phosphatase were normal. Total protein 6, albumin 2.7 and serum lipase was 1040. ASSESSMENT: 1. Acute pancreatitis, serum lipase is trending down slowly. However, the patient continued to be symptomatic with severe abdominal pain and nausea, but no vomiting. 2. Chronic pancreatitis, probably alcohol-induced. 3. Hypertension. 4. Anxiety and depression. 5. Attention deficit hyperactivity disorder. PLAN: To continue with IV pain medication. Continue with n.p.o. status, IV fluid and I did arrange for her to have a CT scan of the abdomen today, it showed similar changes of acute pancreatitis, no necrosis identified, grossly unchanged small hypodense lesion in the pancreatic body, which could represent a small cyst, pseudocyst or a small side branch intraductal papillary mucinous neoplasm. ESME/KANG DR: Viktoria TID: [id number]
[2021-01-30] MEDS: ONDANSETRON PF 4 MG/2 ML VIAL. IVP PRN ×2 (00:34→02:38)
[2021-01-30] MEDS: HYDROmorphone PF 1 MG/ML DISP.SYRIN IVP PRN ×7 (00:35→23:40)
[2021-01-30 05:55] VITALS: BP 160/125
[2021-01-30] MEDS: POTASSIUM CL 40MEQ D5-0.45NACL 1,000 ML IV SCH ×2 (07:45→15:59)
[2021-01-30] MEDS: METOCLOPRAMIDE HCL 10 MG/2 ML VIAL. IVP PRN ×2 (09:49→19:26)
[2021-01-30 12:09] VITALS: BP 147/100
[2021-01-30] MEDS: CALCIUM CARBONATE 500 MG TAB.CHEW PO PRN ×3 (14:23→19:27)
--- NOTE | 2021-01-30 14:49 | NUR ---
follow up appt follow up dr harrison haynes [phone] on february 13 at 8:15am at [address] [phone]
[2021-01-30 15:41] VITALS: BP 138/101
[2021-01-30] MEDS ORDERED: amLODIPine BESYLATE 5 MG TABLET PO SCH (15:45)
[2021-01-30 19:10] VITALS: BP 137/97
--- NOTE | 2021-01-31 00:25 | PN ---
DATE: 01/30/2021 SUBJECTIVE: The patient is sitting on the edge of the bed comfortably, in no apparent distress. She is tolerating her clear liquid diet. Has had no nausea or vomiting. Pain is well controlled. Serum lipase is down to 685. PHYSICAL EXAMINATION: GENERAL: When I examined her, she looked well and was clearly in no apparent respiratory distress. VITAL SIGNS: Her heart rate was 96, blood pressure 147/100, temperature was 98.1, respiratory rate was 20 and oxygen saturation was 98% on room air. HEAD, EYES, EARS, NOSE AND THROAT: Normocephalic, atraumatic. NECK: Supple. HEART: Normal first and second heart sounds, no gallop, rub or murmur. CHEST: Shows central trachea, equal bilateral expansion, air entry, vesicular breath sounds. No crepitation or rhonchi. ABDOMEN: Distended, soft. Tenderness mostly in the epigastric area. No guarding or rigidity. No organomegaly. All hernial orifices intact. Bowel sounds normal. NEUROLOGIC: She is grossly intact. Her intake over the last 24 hours was 1000, no output was recorded. LABORATORY DATA: Her lab work this morning showed a serum sodium 137, potassium 3.7, chloride 102, bicarbonate 28, anion gap of 7, BUN 1, creatinine was 0.4. Estimated GFR was 181 mL per minute. Her glucose was 119. Her calcium was 8.6. Total bilirubin, ALT and alkaline phosphatase were normal. AST slightly elevated. Her total protein was 6, albumin was 2.7. Serum lipase was 685. ASSESSMENT: 1. Acute pancreatitis, slowly resolving. Her serum lipase is down to 685. 2. Chronic pancreatitis, probably alcohol-induced. 3. Hypertension. 4. Anxiety and depression. 5. Attention deficit hyperactivity disorder. PLAN: To start clear liquid diet and advance as tolerated. Continue with IV fluid. Cut down the pain medication to every 4 hours. We will arrange for her to be seen by Dr. Vides at their [facility]. The patient can be discharged home tomorrow. LUIGI DR: Viktoria TID: [id number]
[2021-01-31] MEDS: POTASSIUM CL 40MEQ D5-0.45NACL 1,000 ML IV SCH (01:00)
[2021-01-31] MEDS: HYDROmorphone PF 1 MG/ML DISP.SYRIN IVP PRN (05:51)
[2021-01-31 06:33] LABS: CALCIUM 10.2 mg/dL (8.5-10.1); CREATININE 0.5 mg/dL (0.6-1.0); GFR 140.4
[2021-01-31 06:40] VITALS: BP 139/112
--- NOTE | 2021-01-31 08:14 | NUR ---
PATIENT IS DISCHARGED HOME, DISCHARGED INSTRUCTIONS AND FOLLOW UP APPOINTMENT REVIEWED, PATIENT VERBALIZED UNDERSTANDING. PATIENT LEFT UNIT VIA AMBULATION ACCOMP BY SELF.
--- NOTE | 2021-01-31 15:34 | DS ---
DATE OF DISCHARGE: 01/31/2021 ATTENDING PHYSICIANS: Dr. Don and Dr. Pennington. FINAL DISCHARGE DIAGNOSES: 1. Acute pancreatitis. 2. Chronic pancreatitis. 3. Underlying depression. 4. Gastroesophageal reflux disease. 5. Chronic pain syndrome. 6. Abdominal pain and nausea, resolved. HISTORY AND PHYSICAL: The patient is a 35-year-old female, well known to us from previous admissions. She has had alcohol-related pancreatitis. She had another episode with associated nausea and vomiting and abdominal pain. PHYSICAL EXAMINATION: Please see the dictated note. PERTINENT LABORATORY AND X-RAY STUDIES: Admission hemoglobin was 15.6 g/dL with a white count of 10,000; repeated following dilution, it was down to 11.7 g. Her electrolytes showed a sodium of 3.3, replaced up to 4.0 mEq, sodium was normal. Creatinine 0.5 mg/dL. Admission lipase was 2000, repeated was 1000, then 685 and 544. COURSE IN THE HOSPITAL: The patient was admitted with acute pancreatitis. She was made n.p.o., given pain and nausea control, IV hydration. Symptoms improved. Her diet was advanced to clear liquids. By the fifth hospital day, her abdominal exam was benign. She wanted to go home. I felt this is reasonable. Her blood pressure at the time of discharge was 139 mm systolic. Pulse is 100 and regular. She was afebrile, oxygen saturation 100% on room air. When I examined, her lungs were clear. Cardiovascular exam showed regular heart tones. Abdominal exam was soft without any guarding or rebound tenderness. Strong encouragement to avoid further alcohol use, whether or not she will follow the advice remains to be seen. There were no changes on her home meds. She should continue her amlodipine, fluoxetine, and dexolanse in the form of Vyvanse and p.r.n. pain medications as needed. She was discharged in stable condition with explicit drug and followup care. DIAMOND/KANG/VAL DR: Edna TID: [id number] CC: AILYN CHAVEZ
== END 2021-01-31 08:15 | disposition home or self-care (01) | DRG 438 ==
LOC: ER 10:07 → 1 SOUTH 11:49
PROVIDERS: ADMIT Internal Medicine; ATTEND Internal Medicine
DX: K85.90 Acute pancreatitis without necrosis or infection, unspecified (principal); R65.11 Systemic inflammatory response syndrome (SIRS) of non-infectious origin with acute organ dysfunction; E87.2 Acidosis; G83.4 Cauda equina syndrome; F17.210 Nicotine dependence, cigarettes, uncomplicated; F32.9 Major depressive disorder, single episode, unspecified; F41.9 Anxiety disorder, unspecified; F90.9 Attention-deficit hyperactivity disorder, unspecified type; G89.4 Chronic pain syndrome; I10 Essential (primary) hypertension; J45.909 Unspecified asthma, uncomplicated; K21.9 Gastro-esophageal reflux disease without esophagitis; K76.0 Fatty (change of) liver, not elsewhere classified; K86.1 Other chronic pancreatitis; N28.9 Disorder of kidney and ureter, unspecified; Z82.49 Family history of ischemic heart disease and other diseases of the circulatory system; Z20.822 Contact with and (suspected) exposure to COVID-19
CPT/HCPCS: 36415; 74177; 80048; 80053; 81001; 81025; 83605; 83690; 85025; 87426; 96374; 96375; J1170; J1200; J2270; J2405; J2765; J7042; Q9967; U0003; 99285-25; J7030

== ENCOUNTER 2021-03-20 09:11 | Inpatient (IN) | payer MEDICAID ==
[~2021-03-20] VITALS: Ht 162.6 cm; Wt 54.5 kg
--- NOTE | 2021-03-20 09:41 | PHYS DOC ---
Past History Past Medical History: Anxiety, Depression, Hypertension, Pancreatitis, Other Additional Past Medical Histor: ADHD Past Surgical History: Cholecystectomy, Other Additional Past Surgical Histo: BACK x 4 Smoking: Cigarettes Alcohol Use: Occasionally Drug Use: None Adult General Chief Complaint Chief Complaint: ABDOMINAL PAIN HPI HPI Patient is a 35-year-old female presenting for abdominal pain. This is an acute on chronic issue. She has history of recurrent pancreatitis but does admit that she recently had her gallbladder taken out 3 weeks ago via laparoscopic surgery. Reports ever since the surgery she has had issues with p.o. intake and has been eating more bland foods than usual. Admits eating [place]ian food 48 hours prior and since then has developed recurrent epigastric pain that is sharp in nature and radiates to her back. Also has associated suprapubic pain and flank pain w ithout any dysuria or other concerning symptoms. She has not had any fever, lightheadedness or dizziness, no chest pain, ripping or tearing in torso, cough or shortness of breath. She continues to smoke cigarettes, has history of alcohol dependence but admits she is not drink as much as usual recently with last drink being several days prior, no illicit drug use. Outside of recent cholecystectomy, no other abdominal surgeries. Patient does admit she is covered in outpatient setting by GI specialist, she is pending completion of outpatient labs so she can be seen in outpatient setting but has not done these yet. Review of Systems Review of Systems Fourteen body systems of review of systems have been reviewed. See HPI for p ertinent positives and negative responses, other warner all other systems are negative, non-pertinent or non-contributory Allergies Allergies Allergies Coded Allergies Type Severity Reaction Last Updated Verified No Known Drug Allergies 01/27/21 No Physical Exam Physical Exam Constitutional: Well developed, well nourished, no acute distress, non-toxic appearance. HENT: Normocephalic, atraumatic, bilateral external ears normal, oropharynx moist, no oral exudates, nose normal. Eyes: PERRLA, EOMI, conjunctiva normal, no discharge. Neck: Normal range of motion, no tenderness, supple, no stridor. Cardiovascular: Heart rate regular, sinus rhythm, no murmurs rubs or gallops Lungs & Thorax: Bilateral breath sounds clear to auscultation Abdomen: Bowel sounds normal, soft, no tenderness, no masses, no pulsatile masses. Nonsurgical abdomen, no peritoneal signs Skin: Warm, dry, no erythema, no rash. Back: No tenderness, no CVA tenderness. Extremities: No tenderness, no cyanosis, no clubbing, ROM intact, no edema. Neurologic: Alert and oriented X 3, grossly normal motor & sensory function, no focal deficits noted. Psychologic: Affect normal, judgement normal, mood normal. Current Patient Data Vital Signs Vital Signs Date Time Temp Pulse Resp B/P (MAP) Pulse Ox O2 Delivery O2 Flow Rate FiO2 03/20/21 09:12 98.0 123 18 125/90 (102) 98 Room Air Lab Results Laboratory Tests Test 03/20/21 10:03 03/20/21 10:54 03/20/21 10:55 03/20/21 11:36 White Blood Count 8.4 x10^3/uL Red Blood Count 4.16 x10^6/uL Hemoglobin 15.1 g/dL Hematocrit 45.5 % Mean Corpuscular Volume 109 fL Mean Corpuscular Hemoglobin 36 pg Mean Corpuscular Hemoglobin Concent 33 g/dL Red Cell Distribution Width 16.1 % Platelet Count 149 x10^3/uL Neutrophils (%) (Auto) 71 % Lymphocytes (%) (Auto) 21 % Monocytes (%) (Auto) 7 % Eosinophils (%) (Auto) 1 % Basophils (%) (Auto) 1 % Neutrophils # (Auto) 5.9 x10^3uL Lymphocytes # (Auto) 1.8 x10^3/uL Monocytes # (Auto) 0.6 x10^3/uL Eosinophils # (Auto) 0.1 x10^3/uL Basophils # (Auto) 0.1 x10^3/uL Sodium Level 131 mmol/L Potassium Level 3.3 mmol/L Chloride Level 94 mmol/L Carbon Dioxide Level 18 mmol/L Anion Gap 19 Blood Urea Nitrogen 3 mg/dL Creatinine 0.9 mg/dL Estimated GFR (Cockcroft-Gault) 71.3 BUN/Creatinine Ratio 3 Glucose Level 98 mg/dL Lactic Acid Level 4.3 mmol/L Calcium Level 9.7 mg/dL Total Bilirubin 1.8 mg/dL Aspartate Amino Transf (AST/SGOT) 113 U/L Alanine Aminotransferase (ALT/SGPT) 70 U/L Alkaline Phosphatase 185 U/L Troponin I High Sensitivity < 4 ng/L Total Protein 8.0 g/dL Albumin 3.6 g/dL Albumin/Globulin Ratio 0.8 Lipase 308 U/L Ethyl Alcohol Level < 10 mg/dL Bedside Urine HCG, Qualitative hcg negative Urine Collection Type Unknown Urine Color Preethi Urine Clarity Hazy Urine pH 6.0 Urine Specific [place] 1.015 Urine Protein 100 mg/dl Urine Glucose (UA) Neg mg/dL Urine Ketones (Stick) >=160 mg/dL Urine Blood Neg Urine Nitrite Pos Urine Bilirubin Large Urine Urobilinogen Dipstick 1.0 mg/dL Urine Leukocyte Esterase Neg Urine RBC Occ /HPF Urine WBC 1-4 /HPF Urine Squamous Epithelial Cells Mod /LPF Urine Bacteria 0 /HPF Urine Hyaline Casts Many /HPF Urine Mucus Marked /LPF Urine Opiates Screen Pos Urine Methadone Screen Neg Urine Barbiturates Neg Urine Phencyclidine Screen Neg Urine Amphetamine/Methamphetamine Neg Urine Benzodiazepines Screen Neg Urine Cocaine Screen Neg Urine Cannabinoids Screen Pos Urine Ethyl Alcohol Neg SARS-CoV-2 Antigen (Rapid) Negative Test 03/20/21 14:10 Lactic Acid Level 1.3 mmol/L Current Medications Medications (Trade) Dose Ordered Sig/Paco Route PRN Reason Start Time Stop Time Status Last Admin Dose Admin Sodium Chloride 1,000 ml @ 1,000 mls/hr 1X ONCE IV 03/20/21 09:45 03/20/21 10:44 DC 03/20/21 10:07 Hydromorphone HCl (Dilaudid) 1 mg 1X ONCE IVP 03/20/21 10:00 03/20/21 10:01 DC 03/20/21 10:07 Iohexol (Omnipaque 300 Mg/ml) 75 ml 1X ONCE IV 03/20/21 10:00 03/20/21 10:01 DC 03/20/21 10:18 Ondansetron HCl (Zofran) 4 mg PRN Q8HRS PRN IVP NAUSEA/VOMITING 03/20/21 11:15 03/20/21 15:17 DC 03/20/21 12:32 Sodium Chloride 1,000 ml @ 75 mls/hr [id number] IV 03/20/21 11:15 03/21/21 11:14 03/20/21 12:32 Hydromorphone HCl (Dilaudid) 0.5 mg PRN Q2HR PRN IV PAIN 03/20/21 11:15 03/24/21 11:14 03/20/21 14:31 Ondansetron HCl (Zofran) 4 mg PRN Q4HRS PRN IVP NAUSEA/VOMITING 03/20/21 15:15 03/24/21 11:14 EKG EKG EKG ordered and interpreted by myself at 0955 hrs. as sinus tachycardia at 118 bpm, QTC 496 otherwise unremarkable intervals, no axis deviation no obvious ischemic findings, no STEMI Radiology/Procedures Radiology/Procedures CT ABDOMEN+PELVIS W History: Epigastric pain for 2 days. History of pancreatitis, cholecystectomy. 75 pound weight loss. Comparison: CT abdomen and pelvis 03/31/2021, 09/30/2020 Technique: CT abdomen and pelvis with intravenous contrast. Findings: The lung bases are clear. No pleural or pericardial effusion. There is diffuse hypodensity liver compatible with steatosis. The gallbladder is surgically absent. Common bile duct measures at the upper limits of normal, 6-7 mm. There is mild edema and peripancreatic fat stranding at the pancreatic head. A 9 mm hypodensity of the pancreatic body and 4 mm hypodensity at the pancreatic tail are similar to January comparison, new from September comparison, and likely represent pseudocysts. The spleen, adrenal glands, and kidneys are unremarkable. The stomach and small bowel are unremarkable. Mild hypodense wall thickening of the cecum and descending colon, likely fatty infiltration. The colon is relatively decompressed. Stool is present at the sigmoid and rectum. Uterus and adnexa are unremarkable. The bladder is decompressed. Abdominopelvic vasculature is within normal limits. There is no free air or free fluid. Degenerative changes at L5-S1. Postsurgical features of the sacroiliac joints bilaterally. Impression: 1. Findings compatible with interstitial edematous pancreatitis. 2. 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 3. Hepatic steatosis. Heart Score C/O Chest Pain: No HEART Score for Chest Pain: HEART Score for Chest Pain Response (Comments) Value History Slighlty/Non-Suspicious 0 ECG Nonspecific Repolarizatio 1 Age < 45 0 Risk Factors No Risk Factors 0 Troponin < Normal Limit 0 Total 1 Risk Factors: Risk Factors: DM, Current or recent (<one month) smoker, HTN, HLP, family history of CAD, obesity. Risk Scores: Risk Factors: DM, Current or recent (<one month) smoker, HTN, HLP, family history of CAD, obesity. Course & Med Decision Making Course & Med Decision Making Airway patent, breathing unlabored, IV access and vitals obtained concerning for tachycardia only HPI physical exam and comprehensive ER work-up concerning for UTI and pancreatitis which appears to be acute on chronic Patient has classic physical exam findings of pancreatitis with radiologic evidence despite low lipase. IV fluid rehydration and IV pain control administered. 1 g IV Rocephin started for UTI Nonetheless, patient is unfit for departure home. ER intervention did not adequately improve her symptoms and so, she will require admission for further inpatient medical management due to intractable nausea, abdominal pain and symptoms associated with her UTI and pancreatitis Contacted Dr. Pennington, hospitalist who ultimately accepted care of patient and need for hospital admission. I updated patient on entirety of ER course of care and need for admission and she was amenable, all questions and concerns addressed prior to admission Dragon Disclaimer Dragon Disclaimer This electronic medical record was generated, in whole or in part, using a voice recognition dictation system. Departure Departure: Impression: Primary Impression: Acute pancreatitis Additional Impressions: Electrolyte abnormality UTI (urinary tract infection) Disposition: ADMITTED INPATIENT Admitting Physician: Florentino Pennington Condition: STABLE Referrals: ALCON JARVIS (PCP) Problem Qualifiers EFRAIN WYNN DO Mar 20, 2021 09:41
[2021-03-20] MEDS ORDERED: IV NORMAL SALINE 1,000ML 1,000 ML IV ONE (09:45)
[2021-03-20] MEDS ORDERED: IOHEXOL 300 MG/ML 75 ML VIAL. IV ONE (10:00)
[2021-03-20] MEDS ORDERED: HYDROmorphone PF 1 MG/ML DISP.SYRIN IVP ONE (10:00)
--- NOTE | 2021-03-20 10:03 | EKG ---
[address] [address] Test Date: 2021-03-20 Test Time: 09:49:23 Pat Name: JOEY SOARES Department: Room: Gender: F Winch Driver: VAHID : 1985 Requested By: EFRAIN WYNN Order Number: [id number] Reading MD: Kian Felix Measurements Intervals [place] Rate: 118 P: 65 [place]: 120 QRS: 44 QRSD: 76 T: 56 QT: 352 QTc: 496 Interpretive Statements SINUS TACHYCARDIA Electronically Signed On 03-20-2021 14:01:53 NAIL WELTER by Kian Felix
[2021-03-20 10:35] LABS: BASO # 0.1 x10^3/uL (0.0-0.2); BASO % 1 % (0-3); EOS # 0.1 x10^3/uL (0.0-0.7); EOS % 1 % (0-3); HEMATOCRIT 45.5 % (36.0-47.0); HEMOGLOBIN 15.1 g/dL (12.0-15.5); LYMPH # 1.8 x10^3/uL (1.0-4.8); LYMPH % 21 % (24-48); MEAN CORPUSCULAR HEMOGLOBIN 36 pg (25-35); MEAN CORPUSCULAR HGB CONC 33 g/dL (31-37); MEAN CORPUSCULAR VOLUME 109 fL (79-100); MONO # 0.6 x10^3/uL (0.0-1.1); MONO % 7 % (0-9); NEUT # 5.9 x10^3uL (1.8-7.7); NEUT % 71 % (31-73); PLATELET COUNT 149 x10^3/uL (140-400); RED BLOOD COUNT 4.16 x10^6/uL (3.50-5.40); RED CELL DISTRIBUTION WIDTH 16.1 % (11.5-14.5); WHITE BLOOD COUNT 8.4 x10^3/uL (4.0-11.0)
[2021-03-20 10:52] LABS: CALCIUM 9.7 mg/dL (8.5-10.1); CREATININE 0.9 mg/dL (0.6-1.0); GFR 71.3; POTASSIUM 3.3 mmol/L (3.5-5.1)
--- NOTE | 2021-03-20 10:53 | RAD ---
CT ABDOMEN+PELVIS W History: Epigastric pain for 2 days. History of pancreatitis, cholecystectomy. 75 pound weight loss. Comparison: CT abdomen and pelvis 03/31/2021, 09/30/2020 Technique: CT abdomen and pelvis with intravenous contrast. Findings: The lung bases are clear. No pleural or pericardial effusion. There is diffuse hypodensity liver compatible with steatosis. The gallbladder is surgically absent. C ommon bile duct measures at the upper limits of normal, 6-7 mm. There is mild edema and peripancreati c fat stranding at the pancreatic head. A 9 mm hypodensity of the pancreatic body and 4 mm hypodensit y at the pancreatic tail are similar to January comparison, new from September comparison, and likely rep resent pseudocysts. The spleen, adrenal glands, and kidneys are unremarkable. The stomach and small bowel are unremarkable. Mild hypodense wall thickening of the cecum and descend ing colon, likely fatty infiltration. The colon is relatively decompressed. Stool is present at the s igmoid and rectum. Uterus and adnexa are unremarkable. The bladder is decompressed. Abdominopelvic vasculature is within normal limits. There is no free air or free fluid. Degenerative changes at L5-S1. Postsurgical features of the sacroiliac joints bilaterally. Impression: 1. Findings compatible with interstitial edematous pancreatitis. 2. Redemonstrated pancreatic body and tail hypodensities which are likely pancreatic pseudocysts, ca nnot exclude other etiology such as IPMNs. 3. Hepatic steatosis. ------ Exposure: One or more of the following individualized dose reduction techniques were utilized for thi s examination: 1. Automated exposure control 2. Adjustment of the mA and/or kV according to patient size 3. Use of iterative reconstruction technique. Electronically signed by: George Wick MD (03/20/2021 10:51 AM) [id number]
[2021-03-20 10:58] LABS: ALBUMIN 3.6 g/dL (3.4-5.0); ALBUMIN/GLOBULIN RATIO 0.8 (1.0-1.7); TOTAL BILIRUBIN 1.8 mg/dL (0.2-1.0)
[2021-03-20] MEDS ORDERED: ONDANSETRON PF 4 MG/2 ML VIAL. IVP PRN (11:15)
[2021-03-20 12:19] LABS: BARBITURATES NEG (NEG); BENZODIAZEPINES NEG (NEG); CANNABINOIDS POS (NEG); COCAINE NEG (NEG); METHADONE NEG (NEG); OPIATES POS (NEG); PHENCYCLIDINE NEG (NEG)
[2021-03-20 12:20] LABS: AMPHETAMINE/METHAMPHETAMINE NEG (NEG)
[2021-03-20] MEDS: HYDROmorphone PF 1 MG/ML DISP.SYRIN IV PRN ×6 (12:32→22:38)
[2021-03-20] MEDS: IV NORMAL SALINE 1,000ML 1,000 ML IV SCH (12:32)
[2021-03-20 12:53] LABS: BACTERIA,URINE 0 /HPF (0-FEW); BILIRUBIN,URINE LARGE (NEG); CLARITY,URINE HAZY; COLOR,URINE AMBER; GLUCOSE,URINE NEG (NEG); HYALINE CASTS, URINE MANY /HPF; NITRITE,URINE POS (NEG); RBC,URINE OCC /HPF (0-2); SQUAMOUS EPITHELIAL CELL,UR MOD /LPF
[2021-03-20 13:51] VITALS: BP 119/82
--- NOTE | 2021-03-20 14:15 | NUR ---
Pt arrived to unit @ 1415. VSS. NADN. C/o abdominal pain. Pt belongings at bedside include pants, bra, sweatshirt, shoes, purse, cell phone, and cell phone oncology nurse.
[2021-03-20] MEDS: ONDANSETRON PF 4 MG/2 ML VIAL. IVP PRN ×2 (16:54→20:36)
[2021-03-20 19:47] VITALS: BP 130/94
[2021-03-21] MEDS: ONDANSETRON PF 4 MG/2 ML VIAL. IVP PRN ×2 (00:41→04:38)
[2021-03-21] MEDS: HYDROmorphone PF 1 MG/ML DISP.SYRIN IV PRN ×10 (00:41→21:15)
[2021-03-21] MEDS: IV NORMAL SALINE 1,000ML 1,000 ML IV SCH (02:45)
[2021-03-21 05:24] VITALS: BP 135/95
[2021-03-21] MEDS: METOCLOPRAMIDE HCL 10 MG/2 ML VIAL. IVP PRN ×2 (08:53→21:14)
[2021-03-21 11:13] LABS: ALBUMIN 2.8 g/dL (3.4-5.0); ALBUMIN/GLOBULIN RATIO 0.8 (1.0-1.7); CALCIUM 8.5 mg/dL (8.5-10.1); CREATININE 0.6 mg/dL (0.6-1.0); GFR 113.8; POTASSIUM 3.2 mmol/L (3.5-5.1); TOTAL BILIRUBIN 0.8 mg/dL (0.2-1.0); TOTAL PROTEIN 6.2 g/dL (6.4-8.2)
[2021-03-21 11:45] VITALS: BP 128/87
[2021-03-21 12:00] LABS: BASO % 1 % (0-3); EOS # 0.3 x10^3/uL (0.0-0.7); EOS % 5 % (0-3); HEMOGLOBIN 11.4 g/dL (12.0-15.5); LYMPH % 36 % (24-48); MEAN CORPUSCULAR HEMOGLOBIN 36 pg (25-35); MEAN CORPUSCULAR HGB CONC 34 g/dL (31-37); MEAN CORPUSCULAR VOLUME 108 fL (79-100); MONO # 0.4 x10^3/uL (0.0-1.1); MONO % 7 % (0-9); NEUT # 2.7 x10^3uL (1.8-7.7); NEUT % 50 % (31-73); PLATELET COUNT 118 x10^3/uL (140-400); RED BLOOD COUNT 3.15 x10^6/uL (3.50-5.40); RED CELL DISTRIBUTION WIDTH 15.6 % (11.5-14.5); WHITE BLOOD COUNT 5.4 x10^3/uL (4.0-11.0)
--- NOTE | 2021-03-21 14:44 | NUR ---
Nursing note Pt in bed, requires pain medication to be given at the exact schedule time. Has had 3 emesis. medication for nausea and vomiting given. PT seen by doctor, reports no other needs, call light within reach, bed low.
[2021-03-21 14:48] VITALS: BP 137/89
--- NOTE | 2021-03-21 16:17 | HP ---
DATE OF SERVICE: 03/21/2021 ADMIT DATE: 03/20/2021 HISTORY OF PRESENT ILLNESS: The patient is a 35-year-old female patient who was admitted with a complaint of abdominal pain. She apparently has a history of recurrent alcohol-induced pancreatitis. She was discharged on 01/27/2021 for [id number] pancreatitis, and she underwent laparoscopic cholecystectomy at [facility] on 02/27/2021 for biliary dyskinesia, and according to the patient, she has been complaining of this pain since that time. Her oral intake was poor. She was only eating bland food. She stated that she has ate Mongolian food 48 hours prior to arrival and has developed recurrent epigastric pain that is sharp in nature that she has rated at 6/10 in severity, although this morning her pain was even higher than that at 7 or 8/10, although she did also complain of pain in the epigastric and suprapubic area and also left upper quadrant, but denied any dysuria or frequency. She denied any fever, dizziness or lightheadedness. No chest pain. She apparently continues to smoke and has a history of alcohol dependence, but admits that she has not drank any for more than 3 weeks now. She smokes marijuana. She was evaluated in the Emergency Room and has had lab work and imaging studies. Her lab work showed that her white cell count was normal. In fact, she seemed to be more towards dehydration side with hemoglobin of 15, hematocrit 45 with normal white cell count and platelets. Her chemistry showed that she has hyponatremia, hypokalemia, high anion gap metabolic acidosis. In fact, her lactic acid was 4.3. Also her total bilirubin, AST, ALT, alkaline phosphatase are all elevated and her serum lipase was 308. However, her urinalysis was essentially unremarkable, although the ER physician treated her for UTI and her tox screen was positive for opiates as well as cannabinoids, although her blood alcohol level was less than 10 mg/dL. The patient was admitted with diagnosis of acute pancreatitis, although her serum lipase was only 380. Her CT scan of the abdomen showed finding compatible with interstitial edematous pancreatitis. The CT scan also demonstrated pancreatic body and tail hypodensities, which are likely pancreatic pseudocyst, although other etiologies cannot be excluded. She has also hepatic steatosis. She was kept n.p.o., started on IV fluid and IV pain medication together with electrolyte replacement and Rocephin for presumed UTI. PAST MEDICAL HISTORY: Significant for hypertension and exercise-induced bronchial asthma. She has recurrent episode of pancreatitis, the first episode was on 10/01/2020, the second was on 12/22/2020 and the third episode of pancreatitis was on 01/27/2021, although the patient has adamantly claimed that she has not drank any alcohol over the last month. PAST SURGICAL HISTORY: Significant for back surgery. She has two episodes of cauda equina syndrome for which she underwent laminectomy and discectomy, and more recently, she underwent a laparoscopic cholecystectomy. ALLERGIES: She has no known drug allergies. MEDICATIONS: She is currently on the following medications: She is on amlodipine besylate 5 mg once a day. She also stated during this previous admission that she was on CBD gummies and also fluoxetine and Zofran. FAMILY HISTORY: She has one sister about 15 years older and currently healthy. Her father is alive at the age of 75. He is known to have hypertension. Mother is alive at the age of 65 and seemingly healthy. SOCIAL HISTORY: She is , has a son and a daughter. She smokes about half a pack a day or less. She has not drank alcohol according to her for more than 3 weeks now. She uses CBD gummies. 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 REVIEW OF SYSTEMS: As per history of present illness. PHYSICAL EXAMINATION: GENERAL: On arrival to the Emergency Room, she apparently was well developed and well nourished, in no acute distress, nontoxic appearance. VITAL SIGNS: Her heart rate was 87, blood pressure is 135/95, temperature 97.9, respiratory rate was 18 and oxygen saturation was 98% on room air. HEAD, EYES, EARS, NOSE, AND THROAT: Normocephalic, atraumatic. NECK: Supple. HEART: Normal first and second heart sounds. No gallop, rub or murmur. CHEST: Clear to auscultation, no crepitation or rhonchi. ABDOMEN: Distended with tenderness mostly in the epigastric area. No guarding or rigidity. No organomegaly. All hernial orifice intact. Bowel sounds normal. NEUROLOGIC: She was grossly intact. LABORATORY DATA: On admission showed a white cell count of 8,400, hemoglobin 15, hematocrit 45, MCV 109, and platelet count of 149,000 with normal manual differential. Her chemistry showed a serum sodium 131, potassium 3.3, chloride 94, bicarbonate 18, anion gap of 19, BUN 3, creatinine was 0.9. Estimated GFR was 71 mL per minute. Her glucose was 98, calcium was 9.7. Total bilirubin, AST, ALT, alkaline phosphatase are all elevated. Total protein 8, albumin was 3.6 and lipase was 308. Urinalysis essentially unremarkable with large amount of ketones, small amount of protein. It was negative for glucosuria, negative for blood, positive for nitrite. There is large amount of bilirubin, negative for leukocyte esterase. There is only rare rbc's, 1-4 wbc's and no bacteria. Her toxic screen was positive for opiates as well as cannabinoids. ASSESSMENT AND PLAN: In summary, this is a 35-year-old female patient who was yet again admitted with epigastric pain and was admitted with acute pancreatitis, although her serum lipase was actually well within normal range at 308 with the upper limit of normal at 393. Today's labs are still pending at the time of this dictation. Her CT scan of the abdomen and pelvis with contrast did show that the patient has findings compatible with interstitial edematous pancreatitis and redemonstrated pancreatic body and tail hypodensities, which are likely pancreatic pseudocyst, cannot exclude other etiologies, such as IPMN and hepatic steatosis. The patient was started on IV fluid, metoclopramide, ceftriaxone and we will obviously monitor her labs and if her pain and serum lipase has dramatically risen, she can be started on a clear liquid and can be advanced as tolerated. CHRISTIANO/VAL DR: Viktoria TID: [id number]
[2021-03-21 19:25] VITALS: BP 135/98
[2021-03-21] MEDS: LACTOBACILLUS RHAMNOSUS GG 1 CAPSULE. PO SCH (21:15)
[2021-03-22] MEDS: HYDROmorphone PF 1 MG/ML DISP.SYRIN IV PRN ×6 (00:50→11:09)
[2021-03-22] MEDS: METOCLOPRAMIDE HCL 10 MG/2 ML VIAL. IVP PRN ×2 (05:00→11:08)
[2021-03-22 05:15] VITALS: BP 130/90
[2021-03-22] MEDS: LACTOBACILLUS RHAMNOSUS GG 1 CAPSULE. PO SCH (08:19)
[2021-03-22] MEDS ORDERED: OXYC5TAB4 PO (11:23)
[2021-03-22] MEDS ORDERED: POTASSIUM CHLORIDE 20 MEQ TABLET.ER. PO ONE (11:45)
--- NOTE | 2021-03-22 12:06 | NUR ---
Nursing note: Pt discharged to home per MD's order. Discharge paper and education given, along with personal belongings. At discharge time pt alert and oriented x4, cooperative, pleasant, and ambulatory. Pt was advised to follow up with her primary care provider in next 7-10 days or sooner as needed. Pt verbalized understanding of discharge instruction. Pt was given a ride home by her father.
--- NOTE | 2021-03-22 12:17 | DS ---
DATE OF DISCHARGE: 03/22/2021 HOSPITAL COURSE: The patient is resting, slightly propped up in bed, in no apparent distress. On questioning her, she denied any nausea or vomiting. Denied any abdominal pain. She has tolerated her diet without any problem. Therefore, decision was made to discharge her home to follow with her primary care physician. PHYSICAL EXAMINATION: GENERAL: When I examined her this morning, she looked well and was clearly in no apparent respiratory distress. VITAL SIGNS: Her heart rate was 84, blood pressure was 130/80 and her temperature was 97.9, respiratory rate was 18 and oxygen saturation was 97% on room air. The rest of the exam is stable. LABORATORY DATA: Her most recent lab work showed that her serum lipase was 183, serum sodium 140, potassium 3.2, chloride 100, bicarbonate 24, anion gap of 16, BUN 6, creatinine 0.6. Estimated GFR was 113 mL per minute. Her glucose was 75, calcium was 8.5. Total bilirubin, AST, alkaline phosphatase are elevated. ALT is normal. Total protein 6.2, albumin 2.8. Her hemoglobin was 11.4, hematocrit 34 with normal white cell count and platelets. ASSESSMENT: 1. Probably [id number] pancreatitis. 2. Multiple electrolyte abnormalities including hyponatremia, hypokalemia that has mostly resolved. She has lactic acidosis, resolved. ESME/ANANTH/JOHN DR: ESME/amparo TID: [id number]
== END 2021-03-22 12:14 | disposition home or self-care (01) | DRG 439 ==
LOC: ER 09:11 → 1 SOUTH 11:13 → ER 13:15 → 1 SOUTH 03-21 15:48
PROVIDERS: ADMIT Hospitalist; ATTEND Hospitalist
DX: K85.90 Acute pancreatitis without necrosis or infection, unspecified (principal); E87.1 Hypo-osmolality and hyponatremia; N39.0 Urinary tract infection, site not specified; E87.2 Acidosis; K86.1 Other chronic pancreatitis; E78.5 Hyperlipidemia, unspecified; F17.210 Nicotine dependence, cigarettes, uncomplicated; F32.A Depression, unspecified; F41.9 Anxiety disorder, unspecified; F90.9 Attention-deficit hyperactivity disorder, unspecified type; Y90.0 Blood alcohol level of less than 20 mg/100 ml; K76.0 Fatty (change of) liver, not elsewhere classified; E87.6 Hypokalemia; E86.0 Dehydration; F12.90 Cannabis use, unspecified, uncomplicated; I10 Essential (primary) hypertension; J45.909 Unspecified asthma, uncomplicated; Z82.49 Family history of ischemic heart disease and other diseases of the circulatory system; Z20.822 Contact with and (suspected) exposure to COVID-19; F10.20 Alcohol dependence, uncomplicated
CPT/HCPCS: 36415; 74177; 80053; 80307; 81001; 81025; 83605; 83690; 84484; 85025; 87086; 87426; 93005; 96361; 96374; 96375; G0480; J0696; J1170; J2405; J2765; Q9967; U0003; 99285-25; J7030

== ENCOUNTER 2021-04-15 13:27 | Inpatient (IN) | payer MEDICAID ==
[~2021-04-15] VITALS: Ht 162.6 cm; Wt 54.5 kg
[~2021-04-15 13:27] MED LIST changes: +OXYC5TAB4 PO
[2021-04-15 14:24] LABS: BASO % 1 % (0-3); EOS % 0 % (0-3); HEMATOCRIT 39.4 % (36.0-47.0); HEMOGLOBIN 13.6 g/dL (12.0-15.5); LYMPH # 1.4 x10^3/uL (1.0-4.8); LYMPH % 28 % (24-48); MEAN CORPUSCULAR HEMOGLOBIN 37 pg (25-35); MEAN CORPUSCULAR HGB CONC 35 g/dL (31-37); MEAN CORPUSCULAR VOLUME 107 fL (79-100); MONO # 0.4 x10^3/uL (0.0-1.1); MONO % 8 % (0-9); NEUT # 3.3 x10^3uL (1.8-7.7); NEUT % 63 % (31-73); PLATELET COUNT 136 x10^3/uL (140-400); RED BLOOD COUNT 3.69 x10^6/uL (3.50-5.40); RED CELL DISTRIBUTION WIDTH 16.7 % (11.5-14.5); WHITE BLOOD COUNT 5.2 x10^3/uL (4.0-11.0)
--- NOTE | 2021-04-15 14:27 | EKG ---
[address] [address] Test Date: 2021-04-15 Test Time: 13:48:57 Pat Name: JOEY SOARES Department: Room: Gender: F Associate Teacher: MOY : 1985 Requested By: SUNIL JOSE Order Number: [id number] Reading MD: Nelson Reyes Measurements Intervals [place] Rate: 115 P: 116 NM: 140 QRS: 32 QRSD: 80 T: 46 QT: 358 QTc: 497 Interpretive Statements SINUS TACHYCARDIA MILD NON SPECIFIC ST CHANGES Electronically Signed On 04-20-2021 17:13:14 APPLICATION INTEGRATION ENGINEER by Nelson Reyes
[2021-04-15] MEDS ORDERED: IV NORMAL SALINE 1,000ML 1,000 ML IV ONE (14:30)
[2021-04-15] MEDS ORDERED: ONDANSETRON PF 4 MG/2 ML VIAL. IVP ONE (14:30)
[2021-04-15] MEDS ORDERED: HYDROmorphone PF 1 MG/ML DISP.SYRIN IVP ONE (14:30)
[2021-04-15 14:38] LABS: ALBUMIN/GLOBULIN RATIO 0.7 (1.0-1.7); CALCIUM 8.4 mg/dL (8.5-10.1); CREATININE 0.7 mg/dL (0.6-1.0); GFR 95.2; TOTAL BILIRUBIN 1.2 mg/dL (0.2-1.0); TOTAL PROTEIN 7.1 g/dL (6.4-8.2)
[2021-04-15 14:41] LABS: POTASSIUM 2.6 mmol/L (3.5-5.1)
[2021-04-15] MEDS ORDERED: POTASSIUM BICARB 20 MEQ EFFERVESCENT TABLET. PO ONE (15:30)
[2021-04-15 15:37] LABS: BARBITURATES NEG (NEG); BENZODIAZEPINES NEG (NEG); CANNABINOIDS POS (NEG); COCAINE NEG (NEG); METHADONE NEG (NEG); OPIATES POS (NEG); PHENCYCLIDINE NEG (NEG)
[2021-04-15 15:38] LABS: BILIRUBIN,URINE NEG (NEG); CLARITY,URINE CLEAR; COLOR,URINE YELLOW; GLUCOSE,URINE NEG (NEG)
[2021-04-15 15:39] LABS: BACTERIA,URINE 0 /HPF (0-FEW); NITRITE,URINE NEG (NEG); RBC,URINE 0 /HPF (0-2); UROBILINOGEN,URINE 0.2 mg/dL (0.2 mg/dL); WBC,URINE 0 /HPF (0-4)
[2021-04-15 15:42] LABS: AMPHETAMINE/METHAMPHETAMINE NEG (NEG)
--- NOTE | 2021-04-15 16:41 | PHYS DOC ---
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 Patient states symptoms began this morning after having a couple drinks of beer at a [employer]. Patient describes the pain as sharp and constant. Reports nausea and vomiting. (SUNIL JOSE INCOME TAX ADVISOR) Review of Systems Review of Systems Constitutional: Denies fever or chills [] Eyes: Denies change in visual acuity, redness, or eye pain [] HENT: Denies nasal congestion or sore throat [] Respiratory: Denies cough or shortness of breath [] Cardiovascular: No additional information not addressed in HPI [] GI: Reports epigastric abdominal pain with nausea and vomiting : Denies dysuria or hematuria [] Musculoskeletal: Denies back pain or joint pain [] Integument: Denies rash or skin lesions [] Neurologic: Denies headache, focal weakness or sensory changes [] All other systems were reviewed and found to be within normal limits, except as documented in this note. (SUNIL JOSE INCOME TAX ADVISOR) Current Medications Current Medications Current Medications Medications (Trade) Dose Ordered Sig/Paco Start Time Stop Time Status Last Admin Dose Admin Hydromorphone HCl (Dilaudid) 1 mg 1X ONCE 04/15/21 14:30 04/15/21 14:31 DC 04/15/21 14:30 1 MG Ondansetron HCl (Zofran) 4 mg 1X ONCE 04/15/21 14:30 04/15/21 14:31 DC 04/15/21 14:30 4 MG Potassium Bicarbonate (Potassium Effervescent Tablet) 40 meq 1X ONCE 04/15/21 15:30 04/15/21 15:31 DC 04/15/21 15:56 40 MEQ Sodium Chloride 1,000 ml @ 1,000 mls/hr 1X ONCE 04/15/21 14:30 04/15/21 15:29 DC 04/15/21 14:30 1,000 MLS/HR (SUNIL JOSE INCOME TAX ADVISOR) Allergies Allergies Allergies Coded Allergies Type Severity Reaction Last Updated Verified No Known Drug Allergies 01/27/21 No (SUNIL JOSE INCOME TAX ADVISOR) Physical Exam Physical Exam Constitutional: Well developed, well nourished, no acute distress, non-toxic appearance. [] HENT: Normocephalic, atraumatic, bilateral external ears normal, oropharynx moist, no oral exudates, nose normal. [] Eyes: PERRLA, EOMI, conjunctiva normal, no discharge. [] Neck: Normal range of motion, no tenderness, supple, no stridor. [] Cardiovascular:Heart rate regular rhythm, no murmur [] Lungs & Thorax: Bilateral breath sounds clear to auscultation [] Abdomen: Bowel sounds normal, soft, moderate epigastric and left upper quadrant tenderness, no right upper quadrant or right lower quadrant tenderness, no masses, no pulsatile masses. Patient is actively dry heaving Skin: Warm, dry, no erythema, no rash. [] Back: No tenderness, no CVA tenderness. [] Extremities: No tenderness, no cyanosis, no clubbing, ROM intact, no edema. [] Neurologic: Alert and oriented X 3, normal motor function, normal sensory function, no focal deficits noted. [] Psychologic: Flat affect, depressed mood, tearful (SUNIL JOSE INCOME TAX ADVISOR) Current Patient Data Vital Signs Vital Signs Date Time Temp Pulse Resp B/P (MAP) Pulse Ox O2 Delivery O2 Flow Rate FiO2 04/15/21 14:22 98.5 117 26 117/88 (98) 99 Room Air Lab Results Laboratory Tests Test 04/15/21 14:00 04/15/21 14:10 04/15/21 15:00 04/15/21 15:09 White Blood Count 5.2 x10^3/uL (4.0-11.0) Red Blood Count 3.69 x10^6/uL (3.50-5.40) Hemoglobin 13.6 g/dL (12.0-15.5) Hematocrit 39.4 % (36.0-47.0) Mean Corpuscular Volume 107 fL (79-100) H Mean Corpuscular Hemoglobin 37 pg (25-35) H Mean Corpuscular Hemoglobin Concent 35 g/dL (31-37) Red Cell Distribution Width 16.7 % (11.5-14.5) H Platelet Count 136 x10^3/uL (140-400) L Neutrophils (%) (Auto) 63 % (31-73) Lymphocytes (%) (Auto) 28 % (24-48) Monocytes (%) (Auto) 8 % (0-9) Eosinophils (%) (Auto) 0 % (0-3) Basophils (%) (Auto) 1 % (0-3) Neutrophils # (Auto) 3.3 x10^3uL (1.8-7.7) Lymphocytes # (Auto) 1.4 x10^3/uL (1.0-4.8) Monocytes # (Auto) 0.4 x10^3/uL (0.0-1.1) Eosinophils # (Auto) 0.0 x10^3/uL (0.0-0.7) Basophils # (Auto) 0.0 x10^3/uL (0.0-0.2) Sodium Level 137 mmol/L (136-145) Potassium Level 2.6 mmol/L (3.5-5.1) *L Chloride Level 94 mmol/L (98-107) L Carbon Dioxide Level 24 mmol/L (21-32) Anion Gap 19 (6-14) H Blood Urea Nitrogen 3 mg/dL (7-20) L Creatinine 0.7 mg/dL (0.6-1.0) Estimated GFR (Cockcroft-Gault) 95.2 BUN/Creatinine Ratio 4 (6-20) L Glucose Level 99 mg/dL (70-99) Calcium Level 8.4 mg/dL (8.5-10.1) L Total Bilirubin 1.2 mg/dL (0.2-1.0) H Aspartate Amino Transferase (AST) 209 U/L (15-37) H Alanine Aminotransferase (ALT) 76 U/L (14-59) H Alkaline Phosphatase 204 U/L (46-116) H Total Protein 7.1 g/dL (6.4-8.2) Albumin 3.0 g/dL (3.4-5.0) L Albumin/Globulin Ratio 0.7 (1.0-1.7) L Lipase 934 U/L (73-393) H Ethyl Alcohol Level 47 mg/dL (0-10) H Urine Opiates Screen Pos (NEG) Urine Methadone Screen Neg (NEG) Urine Barbiturates Neg (NEG) Urine Phencyclidine Screen Neg (NEG) Urine Amphetamine/Methamphetamine Neg (NEG) Urine Benzodiazepines Screen Neg (NEG) Urine Cocaine Screen Neg (NEG) Urine Cannabinoids Screen Pos (NEG) Urine Ethyl Alcohol Pos (NEG) Urine Collection Type Clean catch Urine Color Yellow Urine Clarity Clear Urine pH 8.0 Urine Specific Calvin 1.015 Urine Protein Neg (NEG-TRACE) Urine Glucose (UA) Neg mg/dL (NEG) Urine Ketones (Stick) 40 mg/dL (NEG) Urine Blood Neg (NEG) Urine Nitrite Neg (NEG) Urine Bilirubin Neg (NEG) Urine Urobilinogen Dipstick 0.2 mg/dL (0.2 mg/dL) Urine Leukocyte Esterase Neg (NEG) Urine RBC 0 /HPF (0-2) Urine WBC 0 /HPF (0-4) Urine Bacteria 0 /HPF (0-FEW) SARS-CoV-2 Antigen (Rapid) Negative (NEGATIVE) POC Urine HCG, Qualitative hcg negative (Negative) (SUNIL JOSE APRN) EKG EKG [address] Ortiz sinus tachycardia heart rate 115 no STEMI [] (SUNIL JOSE APRN) Radiology/Procedures Radiology/Procedures [] (SUNIL JOSE APRN) Heart Score C/O Chest Pain: N/A Risk Factors: Risk Factors: DM, Current or recent (<one month) smoker, HTN, HLP, family history of CAD, obesity. Risk Scores: Risk Factors: DM, Current or recent (<one month) smoker, HTN, HLP, family history of CAD, obesity. (SUNIL JOSE APRN) Course & Med Decision Making Course & Med Decision Making Pertinent Labs and Imaging studies reviewed. (See chart for details) This is a 35-year-old female patient with a history of chronic pancreatitis from alcohol use presenting today to be evaluated for abdominal pain that began this morning after drinking alcohol. CBC with a normal WBC, CMP with potassium of 2.6, patient was given oral potassium replacement as well as started on NS 140 K per request of Lipase 934, AST 209, ALT 76, ALK 204, alcohol level 47 Spoke with who accepted patient for (SUNIL JOSE APRN) Dragtre Disclaimer Dragon Disclaimer This electronic medical record was generated, in whole or in part, using a voice recognition dictation system. (SUNIL JOSE APRN) Attending Co-Sign The patient was seen and interviewed as well as examined at the bedside. The chart was reviewed. The case was discussed. Agree with the plan of care. (OLIVIA ORTIZ DO) Departure Departure: Impression: Primary Impression: Acute pancreatitis Additional Impressions: Hypokalemia ETOH abuse Transaminitis Disposition: ADMITTED INPATIENT Condition: STABLE Referrals: ALCON JARVIS (PCP) Problem Qualifiers Primary Impression: Acute pancreatitis Pancreatitis type: alcohol induced Acute pancreatitis complication: unspecified Qualified Codes: K85.20 - Alcohol induced acute pancreatitis without necrosis or infection SUNIL JOSE APRN Apr 15, 2021 16:41 OLIVIA ORTIZ DO Apr 16, 2021 08:53
[2021-04-15] MEDS ORDERED: HYDROmorphone PF 1 MG/ML DISP.SYRIN IV PRN (16:45)
[2021-04-15] MEDS ORDERED: POTASSIUM CL 40MEQ IN 0.9%NACL 1,000 ML IV ONE (16:45)
[2021-04-15 17:30] VITALS: BP 140/106
--- NOTE | 2021-04-15 18:39 | NUR ---
The patient, JOEY SOARES, 35 y/o, F admitted by DIAMOND BROWN MD, was given written information regarding hospital policies, unit procedures and contact persons. Valuables were checked and left in room with patient. vital signs are stable, refer to chart.
[2021-04-15] MEDS: ONDANSETRON PF 4 MG/2 ML VIAL. IVP PRN ×2 (19:27→23:04)
[2021-04-15] MEDS: HYDROmorphone PF 1 MG/ML DISP.SYRIN IV PRN ×2 (19:59→23:01)
[2021-04-15 20:11] VITALS: BP 129/85
[2021-04-15 23:41] VITALS: BP 144/78
[2021-04-16] MEDS: ONDANSETRON PF 4 MG/2 ML VIAL. IVP PRN ×5 (02:05→20:17)
[2021-04-16] MEDS: HYDROmorphone PF 1 MG/ML DISP.SYRIN IV PRN ×8 (02:05→23:52)
[2021-04-16 05:52] VITALS: BP 152/106
--- NOTE | 2021-04-16 08:52 | HP ---
DATE OF SERVICE: 04/16/2021 ADMIT DATE: 04/15/2021 ATTENDING PHYSICIAN: Dr. Pennington. CHIEF COMPLAINT: Nausea and abdominal pain. HISTORY OF PRESENT ILLNESS: The patient is a 35-year-old white female with numerous previous admissions with alcoholic pancreatitis. Unfortunately, she continues to drink alcohol, her level was 47. She presented to the ED yesterday with severe epigastric abdominal pain, nausea and elevated lipase. No COVID exposure. PAST MEDICAL HISTORY: Significant for multiple admissions with alcoholic pancreatitis. She has anxiety, depression, hypertension, noncompliance. PAST SURGICAL HISTORY: Includes back surgery and cholecystectomy. ALLERGIES: She has no known drug allergies. MEDICINES: She is not on any prescription meds. She is not compliant. FAMILY HISTORY: Noncontributory. REVIEW OF SYSTEMS: Significant for the continued alcohol use. No COVID exposure. No hematemesis. She is having dry heaves. All other systems reviewed and turned to be negative. PHYSICAL EXAMINATION: GENERAL: When I saw her, this is a young female who is well known to us from previous admission. VITAL SIGNS: Initial vital signs showed a blood pressure of 144/78, pulse was 91 and regular, temperature 97.1 degrees Fahrenheit, oxygen saturation 98% on room air. HEENT: Head is without trauma. Pupils are reactive. Sclerae nonicteric. Oropharynx is clear. NECK: Supple, no bruits. LUNGS: Good breath sounds. CARDIOVASCULAR: Regular heart tones. ABDOMEN: Soft. Minimal guarding. Diffuse tenderness. No rebound tenderness. Bowel sounds were hypoactive. EXTREMITIES: Show no cyanosis or edema. NEUROLOGIC: Focally intact. PERTINENT LABORATORY STUDIES: Her hemoglobin is 13.6 g/dL with a white count of 5200. The MCV is indeed elevated at 107. Serology negative for coronavirus. Chemistry panel: Sodium 137 mEq, potassium 2.6 mEq, creatinine 0.7 mg%, total bilirubin is 1.2. Transaminase is slightly elevated with AST of 209, ALT 76 and alkaline phosphatase of 204. Serum lipase level was 933. ASSESSMENT: 1. A 35-year-old female with alcoholic pancreatitis. 2. Chronic alcoholism. 3. Continued alcohol abuse. 4. Underlying depression with anxiety. 5. Hypertension with noncompliance. 6. Asymptomatic hypokalemia. PLAN: 1. Admit to the inpatient unit. 2. N.p.o. 3. Pain and nausea control. 4. IV hydration with potassium supplementation intravenously. 5. Serial chemistries. 6. Advance diet as tolerated. She is still throwing up today, so she will be kept n.p.o. DIAMOND/BETY DR: DIAMOND/amparo TID: [id number]
[2021-04-16] MEDS: POTASSIUM CL 40MEQ IN 0.9%NACL 1,000 ML IV SCH ×2 (09:32→22:38)
[2021-04-16 10:36] VITALS: BP 147/97
[2021-04-16 13:22] LABS: CREATININE 0.6 mg/dL (0.6-1.0); GFR 113.8; POTASSIUM 3.4 mmol/L (3.5-5.1)
[2021-04-16 15:35] VITALS: BP 154/106
[2021-04-16 19:00] VITALS: BP 153/103
--- NOTE | 2021-04-16 22:35 | NUR ---
PT observed returning from bathroom with a full cup of tap water. Explained to PT she is NPO.
[2021-04-16 23:00] VITALS: BP 160/117
--- NOTE | 2021-04-16 23:17 | NUR ---
PT noted with increased BP. MD telephoned to relay information. MD wishes no intervention at this time.
[2021-04-17] MEDS: ONDANSETRON PF 4 MG/2 ML VIAL. IVP PRN ×3 (02:08→13:45)
[2021-04-17] MEDS: HYDROmorphone PF 1 MG/ML DISP.SYRIN IV PRN ×7 (03:49→23:11)
[2021-04-17 05:00] VITALS: BP 160/117
[2021-04-17 06:10] LABS: CALCIUM 7.8 mg/dL (8.5-10.1); CREATININE 0.5 mg/dL (0.6-1.0); GFR 140.4; POTASSIUM 3.4 mmol/L (3.5-5.1)
[2021-04-17] MEDS: NICOTINE 21MG PATCH. TD SCH (10:44)
[2021-04-17] MEDS: POTASSIUM CL 40MEQ IN 0.9%NACL 1,000 ML IV SCH (11:40)
[2021-04-17 11:56] VITALS: BP 143/103
[2021-04-17 14:54] VITALS: BP 156/105
--- NOTE | 2021-04-17 17:10 | NUR ---
PATIENT WAS NOT HAVING ANY NAUSEA OR VOMITING SINCE 7 AM, STILL C/O ABD PAIN. PATIENT WAS ADVANCED TO CLEAR LIQUID FOR DINNER TIME. PRIOR TO DINNER PATIENT REQUESTED PAIN MEDS, THIS RN INFORMED PATIENT THAT CLEAR LIQUID TRAY WILL BE HELD BECAUSE PATIENT IS STILL IN PAIN, PATIENT VERBALIZED UNDERSTANDING , STATED SHE DOES NOT FEEL LIKE EATING ANYWAY. PAIN MEDICATION ADMINISTERED ORDERED.
[2021-04-17 19:23] VITALS: BP 146/110
--- NOTE | 2021-04-17 21:24 | PN ---
DATE: 04/17/2021 ATTENDING PHYSICIAN: Dr. Pennington. SUBJECTIVE: Still nauseated, not as severe. OBJECTIVE FINDINGS: VITAL SIGNS: Blood pressure this morning is 160/110, pulse 90 and regular, temperature 97.7, oxygen saturation 96% on room air. HEENT: Head is without trauma. Pupils are reactive. Sclerae nonicteric. Oropharynx is clear. NECK: Supple, no bruits. LUNGS: Good breath sounds. CARDIOVASCULAR: Regular heart tones. ABDOMEN: Soft. Minimal guarding. No rebound tenderness. Hypoactive bowel sounds. EXTREMITIES: Show no edema. NEUROLOGIC FINDINGS: Focally intact. Speech is fluent. No withdrawal symptoms. Very flat affect. ASSESSMENT: 1. A 35-year-old female with alcoholic pancreatitis. 2. Chronic alcoholism. 3. Noncompliance of meds. 4. Essential hypertension. 5. Asymptomatic hypokalemia. PLAN: 1. Continue IV hydration. 2. Pain and nausea control. 3. We have not been able to give her oral antihypertensive. If blood pressure is still elevated tomorrow, we will consider doing transdermal clonidine to manage blood pressure. 4. We will still keep n.p.o. because of symptoms. ZHANE DR: DIAMOND/amparo TID: [id number]
--- NOTE | 2021-04-17 22:16 | NUR ---
PT advised at start of shift that is she were still requiring antiemetic, we would continue to hold clears, continue NPO status. PT has only received pain medication this shift.
[2021-04-17 23:15] VITALS: BP 141/98
[2021-04-18] MEDS: POTASSIUM CL 40MEQ IN 0.9%NACL 1,000 ML IV SCH (01:03)
[2021-04-18] MEDS: HYDROmorphone PF 1 MG/ML DISP.SYRIN IV PRN ×2 (03:26→07:46)
[2021-04-18 05:35] VITALS: BP 142/98
[2021-04-18 06:40] LABS: CALCIUM 7.9 mg/dL (8.5-10.1); CREATININE 0.5 mg/dL (0.6-1.0); GFR 140.4
[2021-04-18] MEDS: NICOTINE 21MG PATCH. TD SCH (07:47)
--- NOTE | 2021-04-18 11:13 | NUR ---
Nursing notes PT in bed, verbalized she needs her pain medications, morning medications administered per doctors orders, morning assessment done. Pain medication administered per doctors orders. PT told her Lipase came back normal and she might be discharge from the hospital. PT verbalized no other needs, bed low, call light within reach. will continue to monitor.
[2021-04-18 11:42] VITALS: BP 156/113
[2021-04-18] MEDS ORDERED: HYDROmorphone PF 1 MG/ML DISP.SYRIN IV PRN (11:45)
--- NOTE | 2021-04-18 15:43 | NUR ---
Nursing note PT discharge from the facility on the 04/18/2021, to go home. discharge education done on pancreatitis and alcohol intake. PT stable during discharge, paperwork given to patient. PT accompanied of the facility by the nurse and taken home by family member.
--- NOTE | 2021-04-21 03:55 | DS ---
DATE OF DISCHARGE: 04/18/2021 HOSPITAL COURSE: The patient is a 35-year-old female patient who yet again came with another episode of alcohol-induced pancreatitis. She presented to the Emergency Room with complaint of abdominal pain and initial evaluation showed that her serum lipase was 934. She has also impaired liver enzymes with elevation of total bilirubin, AST, ALT, alkaline phosphatase. Her toxic screen was positive for blood alcohol of 47 mg/dL. Urinalysis essentially unremarkable and her serum test was negative. She was admitted and kept initially n.p.o., started on IV fluid and hydromorphone together with ondansetron and nicotine patch. She did well. She remained mostly hemodynamically stable, afebrile. Her white cell count was normal and her serum lipase came down this morning to 262. The patient was again advised and counseled about the alcoholism and as she remained pain free, a decision was made to discharge her home with the instruction to stop drinking. PHYSICAL EXAMINATION: GENERAL: When I examined her this afternoon, she looked well and was clearly in no apparent respiratory distress. No pallor, jaundice, cyanosis or thyromegaly. No jugular venous distention. No limb edema. VITAL SIGNS: Her heart rate was 90, blood pressure is 140/80, temperature was 99.4, respiratory rate was 16 and oxygen saturation was 99% on room air. HEAD, EYES, EARS, NOSE, AND THROAT: Normocephalic, atraumatic. NECK: Supple. HEART: Normal first and second heart sounds. No gallop, rub or murmur. CHEST: Clear to auscultation, no crepitation or rhonchi. ABDOMEN: Distended, soft, nontender, no guarding or rigidity. No organomegaly. All hernial orifice intact. Bowel sounds normal. NEUROLOGIC: She was grossly intact. LABORATORY DATA: Her lab work this morning showed serum sodium 138, potassium 4, chloride 102, bicarbonate 19, anion gap 17, BUN 2, creatinine was 0.5. Estimated GFR was 140 mL per minute. Her glucose was 66, calcium was 7.9 and serum lipase was 262. The patient was discharged home. FINAL DISCHARGE DIAGNOSES: Acute alcoholic pancreatitis, chronic alcoholism, hypertension, nicotine dependence. ESME/LY/JOEL DR: ESME/amparo TID: [id number]
== END 2021-04-18 15:47 | disposition home or self-care (01) | DRG 439 ==
LOC: ER 13:27 → 1 SOUTH 17:00
PROVIDERS: ADMIT Hospitalist; ATTEND Hospitalist
DX: K85.20 Alcohol induced acute pancreatitis without necrosis or infection (principal); E44.0 Moderate protein-calorie malnutrition; I10 Essential (primary) hypertension; F10.20 Alcohol dependence, uncomplicated; F90.9 Attention-deficit hyperactivity disorder, unspecified type; E87.6 Hypokalemia; F41.8 Other specified anxiety disorders; Z91.19 Patient's noncompliance with other medical treatment and regimen; Z91.14 Patient's other noncompliance with medication regimen; Z87.891 Personal history of nicotine dependence; Z68.20 Body mass index [BMI] 20.0-20.9, adult; Z90.49 Acquired absence of other specified parts of digestive tract; Z20.822 Contact with and (suspected) exposure to COVID-19; F17.200 Nicotine dependence, unspecified, uncomplicated; Y90.2 Blood alcohol level of 40-59 mg/100 ml
CPT/HCPCS: 36415; 80048; 80053; 80307; 81001; 81025; 83690; 85025; 87426; 93005; 96361; 96374; G0480; J1170; J2405; U0003; 99285-25; J7030

== ENCOUNTER 2021-05-04 10:22 | Emergency (ER) | payer MEDICAID ==
[~2021-05-04] VITALS: Ht 162.6 cm; Wt 51.6 kg
[2021-05-04] MEDS ORDERED: IV NORMAL SALINE 1,000ML 1,000 ML IV ONE (11:00)
[2021-05-04] MEDS ORDERED: METOCLOPRAMIDE HCL 10 MG/2 ML VIAL. IVP ONE (11:00)
[2021-05-04] MEDS ORDERED: MORPHINE SULFATE 4 MG/ML DISP.SYRIN. IV ONE (11:00)
--- NOTE | 2021-05-04 11:12 | PHYS DOC ---
Past History Past Medical History: Anxiety, Depression, Hypertension, Pancreatitis, Other Additional Past Medical Histor: PCOS (JEET DALAL) Past Surgical History: Cholecystectomy, Other Additional Past Surgical Histo: back surgery x 4 (JEET DALAL) Smoking: Cigarettes Alcohol Use: Occasionally Additional Alcohol Information: none in 2 weeks Drug Use: None (JEET DALAL) General Adult EDM: Chief Complaint: ABDOMINAL PAIN Problems: (1) Acute on chronic pancreatitis (JEET DALAL) HPI: HPI: Patient is a 35-year-old female with history of pancreatitis and multiple back surgeries who presents with severe upper abdominal pain. Patient rates her pain 9/10 in the epigastric region radiating to her left upper quadrant and periumbilical area. Her pain began a week ago, near [place], and has gotten worse since. She states her current symptoms feel similar to prior pancreatitis exacerbations. Patient reports she has not had any alcohol in 2 weeks. She reports associated nausea and vomiting, denies hematochezia, diarrhea, constipation, blood in stool. (JEET DALAL) Review of Systems: Review of Systems: Constitutional: Denies fever or chills Eyes: Denies change in visual acuity or visual field deficits HENT: Denies nasal congestion or sore throat Respiratory: Denies cough or shortness of breath Cardiovascular: Denies chest pain or edema GI: See HPI : Denies dysuria or hematuria Musculoskeletal: Denies back pain or joint pain Integument: Denies rash or other skin lesions Neurologic: Denies headache, focal weakness or paresthesias (JEET DALAL) Current Medications: Current Meds: Current Medications Medications (Trade) Dose Ordered Sig/Paco Start Time Stop Time Status Last Admin Dose Admin Metoclopramide HCl (Reglan Vial) 10 mg 1X ONCE 05/04/21 11:00 05/04/21 11:01 UNV Morphine Sulfate (Morphine 4mg Syringe) 4 mg 1X ONCE 05/04/21 11:00 05/04/21 11:01 UNV Sodium Chloride 1,000 ml @ 1,000 mls/hr 1X ONCE 05/04/21 11:00 05/04/21 11:59 UNV (JEET DALAL) Allergies: Allergies: Allergies Coded Allergies Type Severity Reaction Last Updated Verified No Known Drug Allergies 05/04/21 No (JEET DALAL) Physical Exam: PE: Constitutional: Patient is thin, well-groomed, in obvious pain. Cardiovascular: Heart rate regular rhythm, no murmur. Lungs & Thorax: Bilateral breath sounds clear to auscultation. Abdomen: Abdomen nondistended, negative Tim sign, negative Johnson Winters sign, bowel sounds hypoactive, soft, diffuse tenderness to palpation, more tender in epigastric region, no masses, no pulsatile masses. Skin: Warm, dry, no erythema, no rash. Back: No step-off, no midline tenderness, no CVA tenderness. Extremities: No tenderness, no cyanosis, no clubbing, ROM intact, no edema, no obvious deformity, distal pulses intact. Neurologic: Alert and oriented x4, sensory and motor function grossly intact, steady symmetrical gait, no focal deficits noted. (JEET DALAL) Current Patient Data: Labs: Laboratory Tests Test 05/04/21 11:10 White Blood Count 7.1 x10^3/uL (4.0-11.0) Red Blood Count 3.55 x10^6/uL (3.50-5.40) Hemoglobin 12.7 g/dL (12.0-15.5) Hematocrit 38.2 % (36.0-47.0) Mean Corpuscular Volume 108 fL (79-100) Mean Corpuscular Hemoglobin 36 pg (25-35) Mean Corpuscular Hemoglobin Concent 33 g/dL (31-37) Red Cell Distribution Width 16.2 % (11.5-14.5) Platelet Count 166 x10^3/uL (140-400) Neutrophils (%) (Auto) 69 % (31-73) Lymphocytes (%) (Auto) 23 % (24-48) Monocytes (%) (Auto) 7 % (0-9) Eosinophils (%) (Auto) 1 % (0-3) Basophils (%) (Auto) 1 % (0-3) Neutrophils # (Auto) 4.8 x10^3uL (1.8-7.7) Lymphocytes # (Auto) 1.6 x10^3/uL (1.0-4.8) Monocytes # (Auto) 0.5 x10^3/uL (0.0-1.1) Eosinophils # (Auto) 0.0 x10^3/uL (0.0-0.7) Basophils # (Auto) 0.1 x10^3/uL (0.0-0.2) Sodium Level 136 mmol/L (136-145) Potassium Level 3.0 mmol/L (3.5-5.1) Chloride Level 94 mmol/L (98-107) Carbon Dioxide Level 22 mmol/L (21-32) Anion Gap 20 (6-14) Blood Urea Nitrogen 4 mg/dL (7-20) Creatinine 0.7 mg/dL (0.6-1.0) Estimated GFR (Cockcroft-Gault) 95.2 BUN/Creatinine Ratio 6 (6-20) Glucose Level 85 mg/dL (70-99) Calcium Level 8.5 mg/dL (8.5-10.1) Magnesium Level 1.7 mg/dL (1.8-2.4) Total Bilirubin 1.3 mg/dL (0.2-1.0) Aspartate Amino Transf (AST/SGOT) 130 U/L (15-37) Alanine Aminotransferase (ALT/SGPT) 38 U/L (14-59) Alkaline Phosphatase 199 U/L (46-116) Total Protein 7.2 g/dL (6.4-8.2) Albumin 2.9 g/dL (3.4-5.0) Albumin/Globulin Ratio 0.7 (1.0-1.7) Lipase 241 U/L (73-393) Ethyl Alcohol Level < 10 mg/dL (0-10) Vital Signs: Vital Signs Date Time Temp Pulse Resp B/P (MAP) Pulse Ox O2 Delivery O2 Flow Rate FiO2 05/04/21 13:04 18 99 Room Air 05/04/21 12:54 102 16 125/95 (105) 97 Room Air 05/04/21 11:34 13 97 Room Air 05/04/21 11:14 117 28 134/92 (106) 100 Room Air 05/04/21 11:08 15 100 Room Air 05/04/21 10:31 98.1 132 24 114/97 (103) 100 Room Air (DALALJEET [place]) Radiology/Procedures: Radiology/Procedures: PROCEDURE: KUB EXAMINATION: Abdominal radiograph. VIEWS: 2 COMPARISON: 03/20/2021 INDICATION: 35 years, Female, abdominal pain. FINDINGS: Nonobstructive bowel gas pattern. No gross pneumoperitoneum.No abnormal intra- abdominal calcifications. Lung bases are unremarkable.No acute process process. Cholecystectomy clips. IMPRESSION: Nonobstructive bowel gas pattern. Electronically signed by: Brooklynn Cuello MD (05/04/2021 1:06 PM) [facility] (JEET DALAL) Heart Score: C/O Chest Pain: No (JEET DALAL) Course & Med Decision Making: Course & Med Decision Making Pertinent Labs and Imaging studies reviewed. (See chart for details) Patient is a 35-year-old female with known pancreatitis who presents with acute epigastric and left upper quadrant abdominal pain that has been going on for a week. Patient states, "Dilaudid is the only thing that helps." Work-up will in clude labs, urinalysis, KUB. Patient last had abdomen/pelvis CT scan with IV contrast 6 weeks ago[address] Will defer [address] imaging until I am able to review lab values. Case discussed with Dr. Ortiz in the department. On reevaluation after morphine administration, patient states to nursing staff that the morphine "didn't touch it," however she now reports her pain is 7/10 down from 9/10. Patient will be given 1 mg Dilaudid. After Dilaudid administration, patient feels much improved. Additionally, her labs are very reassuring with lipase within normal limits at 213. Potassium is low at 3.0, magnesium is also low 1.7. She will be given p.o. replenishment here in the department. Counseled patient on supplementation going forward. Discussed GI follow-up with her. She states that she does follow with Dr. Vides out of [facility]. She states that she had her gallbladder removed and had follow-up labs drawn recently. She states that she is scheduled to see them next on 05/17/2021. She does request pain medication for the interim. I also encouraged her to see Dr. Whitfield for chronic pain management. I will provide electronic prescription for hydrocodone and Zofran. She is to follow with Dr. Vides as scheduled and call Dr. Whitfield's office as well. Patient understands and is agreeable to discharge plan. (JEET DALAL) Anali Disclaimer: Dragtre Disclaimer: This electronic medical record was generated, in whole or in part, using a voice recognition dictation system. (JEET DALAL) Attending Co-Sign The patient was seen and interviewed as well as examined at the bedside. The chart was reviewed. The case was discussed. Agree with the plan of care. (OLIVIA ORTIZ DO) Departure Departure: Impression: Primary Impression: Chronic upper abdominal pain Additional Impressions: Hypomagnesemia Hypokalemia Disposition: HOME / SELF CARE / HOMELESS Condition: IMPROVED Referrals: ALCON JARVIS (PCP) RAY WHITFIELD MD, SCOTT S MD Patient Instructions: Diet for Diarrhea, Adult, Potassium Content of Foods Additional Instructions: EMERGENCY DEPARTMENT GENERAL DISCHARGE INSTRUCTIONS THANK YOU for coming to [facility] Emergency Department (ED) today and trusting us with your care. We trust that you had a positive experience in our Emergency Department. YOUR FOLLOW UP INSTRUCTIONS ARE FOLLOWS: Do you have a private doctor? If you do not have a private doctor, please ask for a resource list of physicians or clinics that may be able to assist you with follow up care. The Emergency Physician has interpreted your x-rays. The X-ray specialist also reviewed them. If there is a change in the findings you will be notified in 48 hours when at all possible. A lab test or lab culture may have been done, your results will be reviewed and you will be notified if you need a change in treatment. ADDITIONAL INSTRUCTIONS AND INFORMATION Your care today has been supervised by a physician who is specially trained in emergency care. Many problems require more than one evaluation for a complete diagnosis and treatment. We recommend that you schedule your follow up appointment as recommended to ensure complete treatment of your illness or injury. If you are unable to obtain follow up care and continue to have a problem, or if your condition worsens we recommend that you return to the ED. We are not able to safely determine your condition over the phone nor are we able to give sound medical advice over the phone. For these safety reasons, if you call for medical advice we will ask you to come to the ED for further evaluation If you have any questions regarding these discharge instructions please call the ED at . SAFETY INFORMATION In the interest of safety, wellness, and injury prevention; we encourage you to wear your seatbelt, if you smoke; quit smoking, and we encourage your family to use protective helmet for bicycling and other sporting events that present an increased risk for head injury. IF YOUR SYMPTOMS WORSEN OR NEW SYMPTOMS DEVELOP, OR YOU HAVE CONCERNS ABOUT YOUR CONDITION; OR IF YOUR CONDITION WORSENS WHILE YOU ARE WAITING FOR YOUR FOLLOW UP APPOINTMENT; EITHER CONTACT YOUR PRIMARY CARE DOCTOR, THE PHYSICIAN WHOSE NAME AND NUMBER YOU WERE GIVEN, OR RETURN TO THE ED IMMEDIATELY. Scripts Hydrocodone Bit/Acetaminophen (HYDROCODONE-APAP 7.5-325 ) 1 Each Tablet 1 TAB PO PRN TID PRN for PAIN for 5 Days, #15 TAB 0 Refills Prov: JEET DALAL 05/04/21 Ondansetron (ONDANSETRON ODT) 4 Mg Tab.rapdis 1-2 TAB PO PRN Q6-8HRS PRN for NAUSEA/VOMITING, #20 TAB Prov: JEET DALAL 05/04/21 JEET DALAL May 04, 2021 11:12 OLIVIA ORTIZ DO May 05, 2021 22:18
[2021-05-04 11:28] LABS: BASO # 0.1 x10^3/uL (0.0-0.2); BASO % 1 % (0-3); EOS % 1 % (0-3); HEMATOCRIT 38.2 % (36.0-47.0); HEMOGLOBIN 12.7 g/dL (12.0-15.5); LYMPH # 1.6 x10^3/uL (1.0-4.8); LYMPH % 23 % (24-48); MEAN CORPUSCULAR HEMOGLOBIN 36 pg (25-35); MEAN CORPUSCULAR HGB CONC 33 g/dL (31-37); MEAN CORPUSCULAR VOLUME 108 fL (79-100); MONO # 0.5 x10^3/uL (0.0-1.1); MONO % 7 % (0-9); NEUT # 4.8 x10^3uL (1.8-7.7); NEUT % 69 % (31-73); PLATELET COUNT 166 x10^3/uL (140-400); RED BLOOD COUNT 3.55 x10^6/uL (3.50-5.40); RED CELL DISTRIBUTION WIDTH 16.2 % (11.5-14.5); WHITE BLOOD COUNT 7.1 x10^3/uL (4.0-11.0)
[2021-05-04] MEDS ORDERED: HYDROmorphone PF 1 MG/ML DISP.SYRIN ONE (11:32)
[2021-05-04] MEDS ORDERED: HYDROmorphone PF 1 MG/ML DISP.SYRIN IVP ONE (11:45)
[2021-05-04 11:49] LABS: ALBUMIN 2.9 g/dL (3.4-5.0); ALBUMIN/GLOBULIN RATIO 0.7 (1.0-1.7); CALCIUM 8.5 mg/dL (8.5-10.1); CREATININE 0.7 mg/dL (0.6-1.0); GFR 95.2; MAGNESIUM 1.7 mg/dL (1.8-2.4); TOTAL BILIRUBIN 1.3 mg/dL (0.2-1.0); TOTAL PROTEIN 7.2 g/dL (6.4-8.2)
[2021-05-04] MEDS ORDERED: HYDR-3070 PO (12:44)
[2021-05-04] MEDS ORDERED: ONDA4TAB12 PO (12:44)
[2021-05-04] MEDS ORDERED: POTASSIUM BICARB 20 MEQ EFFERVESCENT TABLET. PO ONE (12:45)
[2021-05-04] MEDS ORDERED: MAGNESIUM CHLORIDE ER 64 MG TABLET.ER PO SCH (12:45)
[2021-05-04] MEDS ORDERED: HYDR-2765 PO (13:03)
--- NOTE | 2021-05-04 13:09 | RAD ---
EXAMINATION: Abdominal radiograph. VIEWS: 2 COMPARISON: 03/20/2021 INDICATION: 35 years, Female, abdominal pain. FINDINGS: Nonobstructive bowel gas pattern. No gross pneumoperitoneum.No abnormal intra-abdominal calcification s. Lung bases are unremarkable.No acute process process. Cholecystectomy clips. IMPRESSION: Nonobstructive bowel gas pattern. Electronically signed by: Brooklynn Cuello MD (05/04/2021 1:06 PM) [facility]
[2021-05-04 13:15] VITALS: BP 131/95
== END 2021-05-04 15:39 | disposition home or self-care (01) ==
LOC: ER 10:22
DX: E83.42 Hypomagnesemia (principal); E87.6 Hypokalemia; G89.29 Other chronic pain; I10 Essential (primary) hypertension; F17.210 Nicotine dependence, cigarettes, uncomplicated; Z90.49 Acquired absence of other specified parts of digestive tract
CPT/HCPCS: 36415; 74018; 80053; 83690; 83735; 85025; 96361; 96374; 96375; 99285; G0480; J1170; J2270; J2765; J7030

== ENCOUNTER 2021-07-05 19:47 | Emergency (ER) | payer MEDICAID ==
[~2021-07-05] VITALS: Ht 162.6 cm; Wt 51.6 kg
[~2021-07-05 19:47] MED LIST changes: +HYDR-2765 PO; +HYDR-3070 PO; +ONDA4TAB12 PO
[2021-07-05] MEDS ORDERED: IV NORMAL SALINE 1,000ML 1,000 ML IV ONE (20:30)
[2021-07-05] MEDS ORDERED: ONDANSETRON PF 4 MG/2 ML VIAL. IVP ONE (20:30)
[2021-07-05] MEDS ORDERED: HYDROmorphone PF 1 MG/ML DISP.SYRIN IVP ONE ×3 (20:30→22:30)
[2021-07-05 20:37] LABS: BASO # 0.1 x10^3/uL (0.0-0.2); BASO % 1 % (0-3); EOS # 0.1 x10^3/uL (0.0-0.7); EOS % 1 % (0-3); HEMATOCRIT 35.6 % (36.0-47.0); HEMOGLOBIN 11.8 g/dL (12.0-15.5); LYMPH # 3.5 x10^3/uL (1.0-4.8); LYMPH % 37 % (24-48); MEAN CORPUSCULAR HEMOGLOBIN 34 pg (25-35); MEAN CORPUSCULAR HGB CONC 33 g/dL (31-37); MEAN CORPUSCULAR VOLUME 102 fL (79-100); MONO # 1.3 x10^3/uL (0.0-1.1); MONO % 13 % (0-9); NEUT # 4.6 x10^3uL (1.8-7.7); NEUT % 48 % (31-73); PLATELET COUNT 522 x10^3/uL (140-400); RED BLOOD COUNT 3.48 x10^6/uL (3.50-5.40); RED CELL DISTRIBUTION WIDTH 16.3 % (11.5-14.5); WHITE BLOOD COUNT 9.6 x10^3/uL (4.0-11.0)
[2021-07-05 20:38] LABS: CALCIUM 8.8 mg/dL (8.5-10.1); CREATININE 0.5 mg/dL (0.6-1.0); GFR 140.4; POTASSIUM 3.1 mmol/L (3.5-5.1)
[2021-07-05 20:48] LABS: ALBUMIN 2.9 g/dL (3.4-5.0); ALBUMIN/GLOBULIN RATIO 0.7 (1.0-1.7); TOTAL BILIRUBIN 0.3 mg/dL (0.2-1.0)
--- NOTE | 2021-07-05 20:52 | PHYS DOC ---
Past History Past Medical History: Anxiety, Depression, Hypertension, Pancreatitis, Other Additional Past Medical Histor: PCOS (KEESHA HUERTAS APRN) Past Surgical History: Cholecystectomy, Other Additional Past Surgical Histo: back surgery x 4 (KEESHA HUERTAS APRN) Smoking: Cigarettes Alcohol Use: Occasionally Drug Use: None (KEESHA HUERTAS APRN) General Adult EDM: Chief Complaint: ABDOMINAL PAIN HPI: HPI: Patient is a 35-year-old female who presents with generalized abdominal pain. Patient states that pain started last night at 11 PM. Patient states she was running a fever and also vomiting. Patient has a history of pancreatitis and states that is what the problem is today. Patient has been hospitalized before in the past. Patient is a daily drinker. Patient states that she had 1 drink today because "it helps with the pain". Patient also reports taking ibuprofen and Tylenol for discomfort with no relief. Patient has history of hypertension, pancreatitis, alcoholism. (KEESHA HUERTAS APRN) Review of Systems: Review of Systems: ROS At least 10 ROS systems have been reviewed and are negative except as documented in the HPI. General: Negative except as outlined in HPI above. Skin: Negative except as outlined in HPI above. HEENT: Negative except as outlined in HPI above. Neck: Negative except as outlined in HPI above. Respiratory: Negative except as outlined in HPI above.. Cardiovascular: Negative except as outlined in HPI above. Abdomen: Negative except as outlined in HPI above. : Negative except as outlined in HPI above. Back/MSK: Negative except as outlined in HPI above. Neuro: Negative except as outlined in HPI above. Psych: Negative except as outlined in HPI above. (KEESHA HUERTAS APRN) Current Medications: Current Meds: Current Medications Medications (Trade) Dose Ordered Sig/Paco Start Time Stop Time Status Last Admin Dose Admin Hydromorphone HCl (Dilaudid) 1 mg 1X ONCE 07/05/21 20:30 07/05/21 20:31 DC Ondansetron HCl (Zofran) 4 mg 1X ONCE 07/05/21 20:30 07/05/21 20:31 DC Sodium Chloride 1,000 ml @ 1,000 mls/hr 1X ONCE 07/05/21 20:30 07/05/21 21:29 (KEESHA HUERTAS APRN) Allergies: Allergies: Allergies Coded Allergies Type Severity Reaction Last Updated Verified No Known Drug Allergies 12/31/21 No (KEESHA HUERTAS MOTOR SCOOTER MECHANIC) Physical Exam: PE: Constitutional: Well developed, well nourished, no acute distress, non-toxic appearance. [] HENT: bilateral external ears normal, oropharynx moist, no oral exudates, nose normal. [] Eyes: PERRLA, conjunctiva normal, no discharge. [] Neck: Normal range of motion, no tenderness, supple, no stridor. [] Cardiovascular:Heart rate regular rhythm, no murmur [] Lungs & Thorax: Bilateral breath sounds clear to auscultation [] Abdomen: Bowel sounds normal, soft, abdominal tenderness/generalized Skin: Warm, dry, no erythema, no rash. [] Back: Generalized tenderness throughout back, no CVA tenderness. [] Extremities: No tenderness, no cyanosis, no clubbing, ROM intact, no edema. [] Neurologic: Alert and oriented X 3, normal motor function, normal sensory function, no focal deficits noted. [] Psychologic: Affect normal, judgement normal, mood normal. [] (KEESHA HUERTAS MOTOR SCOOTER MECHANIC) Current Patient Data: Labs: Laboratory Tests Test 07/05/21 20:14 07/05/21 20:16 White Blood Count 9.6 x10^3/uL (4.0-11.0) Red Blood Count 3.48 x10^6/uL (3.50-5.40) L Hemoglobin 11.8 g/dL (12.0-15.5) L Hematocrit 35.6 % (36.0-47.0) L Mean Corpuscular Volume 102 fL (79-100) H Mean Corpuscular Hemoglobin 34 pg (25-35) Mean Corpuscular Hemoglobin Concent 33 g/dL (31-37) Red Cell Distribution Width 16.3 % (11.5-14.5) H Platelet Count 522 x10^3/uL (140-400) H Neutrophils (%) (Auto) 48 % (31-73) Lymphocytes (%) (Auto) 37 % (24-48) Monocytes (%) (Auto) 13 % (0-9) H Eosinophils (%) (Auto) 1 % (0-3) Basophils (%) (Auto) 1 % (0-3) Neutrophils # (Auto) 4.6 x10^3uL (1.8-7.7) Lymphocytes # (Auto) 3.5 x10^3/uL (1.0-4.8) Monocytes # (Auto) 1.3 x10^3/uL (0.0-1.1) H Eosinophils # (Auto) 0.1 x10^3/uL (0.0-0.7) Basophils # (Auto) 0.1 x10^3/uL (0.0-0.2) Sodium Level 139 mmol/L (136-145) Potassium Level 3.1 mmol/L (3.5-5.1) L Chloride Level 103 mmol/L (98-107) Carbon Dioxide Level 24 mmol/L (21-32) Anion Gap 12 (6-14) Blood Urea Nitrogen 4 mg/dL (7-20) L Creatinine 0.5 mg/dL (0.6-1.0) L Estimated GFR (Cockcroft-Gault) 140.4 BUN/Creatinine Ratio 8 (6-20) Glucose Level 107 mg/dL (70-99) H Calcium Level 8.8 mg/dL (8.5-10.1) Total Bilirubin Pending Aspartate Amino Transferase (AST) Pending Alanine Aminotransferase (ALT) Pending Alkaline Phosphatase Pending Total Protein Pending Albumin Pending Albumin/Globulin Ratio Pending Lipase Pending Ethyl Alcohol Level 238 mg/dL (0-10) H POC Urine HCG, Qualitative hcg negative (Negative) Vital Signs: Vital Signs Date Time Temp Pulse Resp B/P (MAP) Pulse Ox O2 Delivery O2 Flow Rate FiO2 07/05/21 19:59 98.3 126 18 197/109 (138) 98 Room Air (KEESHA HUERTAS APRN) EKG: EKG: Sinus tachycardia. Heart rate 102. No ST elevation or depression. [] (KEESHA HUERTAS APRN) Radiology/Procedures: Radiology/Procedures: [] (KEESHA HUERTAS APRN) Heart Score: C/O Chest Pain: No Risk Factors: Risk Factors: DM, Current or recent (<one month) smoker, HTN, HLP, family history of CAD, obesity. Risk Scores: Score 0 - 3: 2.5% MACE over next 6 weeks - Discharge Home Score 4 - 6: 20.3% MACE over next 6 weeks - Admit for Clinical Observation Score 7 - 10: 72.7% MACE over next 6 weeks - Early Invasive Strategies (KEESHA HUERTAS APRN) Course & Med Decision Making: Course & Med Decision Making Pertinent Labs and Imaging studies reviewed. (See chart for details) [] 35-year-old female presents with generalized abdominal pain that started last night at 11 PM. Patient has history of chronic pancreatitis and has been hospitalized many times. Patient reports vomiting and fever at home. Afebrile in the ER. Patient's pain and nausea treated while in the ER. Patient given NS bolus. Alcohol level is 238. Potassium of 3.1. Patient given p.o. potassium. All other labs unremarkable. Patient is still reporting abdominal pain. Patient given second dose of Dilaudid. CT abdomen pelvis suspicious for perinephric abscess along with pancreatitis. Zosyn and vancomycin started. Consulted IR at [place]. Spoke with Dr. Ybarra who will be draining abscess in the morning. Discussed admission plan with patient. Patient agrees with transfer to [facility]. Transfer patient care to Dr. Katz at 2220. (KEESHA HUERTAS APRN) Course & Med Decision Making See Josh Report for details. Impression: 1. Acute on Chronic Pancreatitis 2. Pyelonephritis 3. Perinephric Abscess Transfer to [facility]- Dr. Aguilera- Hospitalist. (MELISSA KATZ MD) Dragon Disclaimer: Anali Disclaimer: This electronic medical record was generated, in whole or in part, using a voice recognition dictation system. (KEESHA HUERTAS APRN) Departure Departure: Referrals: ALCON JARVIS (PCP) Margaritaon Disclaimer This chart was dictated in whole or in part using Voice Recognition software in a busy, high-work load, and often noisy Emergency Department environment. It may contain unintended and wholly unrecognized errors or omissions. (MELISSA KATZ MD) Attending Signature Attending Signature I have participated in the care of this patient and I have reviewed and agree with all pertinent clinical information above including history, exam, and recommendations. (MELISSA KATZ MD) KEESHA HUERTAS APRN Jul 05, 2021 20:52 MELISSA KATZ MD Jul 06, 2021 05:45
[2021-07-05 21:08] LABS: BARBITURATES NEG (NEG); BENZODIAZEPINES NEG (NEG); CANNABINOIDS NEG (NEG); COCAINE NEG (NEG); COLOR,URINE COLORLESS; METHADONE NEG (NEG); OPIATES NEG (NEG); PHENCYCLIDINE NEG (NEG)
[2021-07-05 21:09] LABS: AMPHETAMINE/METHAMPHETAMINE NEG (NEG); BACTERIA,URINE 0 /HPF (0-FEW); CLARITY,URINE CLEAR; GLUCOSE,URINE NEG (NEG); NITRITE,URINE NEG (NEG); RBC,URINE 0 /HPF (0-2); UROBILINOGEN,URINE 0.2 mg/dL (0.2 mg/dL); WBC,URINE 0 /HPF (0-4)
[2021-07-05] MEDS ORDERED: POTASSIUM CHLORIDE 20 MEQ TABLET.ER. PO ONE (21:30)
--- NOTE | 2021-07-05 21:35 | RAD ---
CT abdomen pelvis without contrast dated 07/05/2021. COMPARISON: 03/20/2021. Clinical data indication: Pain. TECHNIQUE: Contiguous axial imaging the M pelvis performed without the administration of IV or oral contrast. One or more of the following individualized dose reduction techniques were utilized for this examinat ion: 1. Automated exposure control 2. Adjustment of the mA and/or kV according to patient size 3. Use of iterative reconstruction technique FINDINGS: Limited images of lung bases are clear. Heart size is within normal limits. No pleural or pericardial effusion. Liver is of diffuse low density compatible with fatty infiltration. No apparent mass. No biliary duct al dilatation. Gallbladder surgically absent. There is a large subcapsular collection at the lateral aspect of the left kidney with thickened perip heral rim. The collection measures 9.1 x 5.9 x 8.1 cm and flattens the lateral cortex. There is resul tant mass effect upon the hilar structures without hydronephrosis. Mild urothelial thickening of the proximal left ureter. Mild inflammatory stranding in the perinephric fat. No renal or ureteral stone. Right kidney is unremarkable. The subcapsular collection abuts the pancreatic tail and there is mild inflammatory stranding around the pancreatic tail. Remaining pancreas is unremarkable. Adrenal glands are unremarkable. Unopacified GI tract normal in caliber and contour. No bowel wall thickening. No inflammatory strandi ng in the mesentery. No ascites or lymphadenopathy. Abdominal aorta normal in caliber. Appendix adriana l in caliber. Images of pelvis show mildly distended urinary bladder. There is diffuse bladder wall thickening. Erika anne and adnexa are unremarkable. No free fluid or pelvic adenopathy. Bone window show no acute findings. Mild lower lumbar spondylosis. IMPRESSION: 1. There is a large subcapsular fluid collection at the lateral left kidney that is new from prior st udy. There are adjacent inflammatory changes in the perinephric fat with mild urothelial thickening o f the proximal left ureter. Etiology is indeterminate but could represent pyelonephritis with perinep hric abscess. There are also mild inflammatory changes at the pancreatic tail and a pancreatic pseudo cyst dissecting along the lateral left kidney is another consideration. Correlate clinically. 2. Fatty infiltration of the liver. Electronically signed by: Mak Clark MD (07/05/2021 9:32 PM) [facility]
[2021-07-05 21:44] VITALS: BP 147/107
[2021-07-05] MEDS ORDERED: PIPERACILLIN/TAZOBACTAM 3.375 GM VIAL IV ONE (22:00)
[2021-07-05] MEDS ORDERED: IV NORMAL SALINE 50ML 50 ML ONE (22:00)
[2021-07-05] MEDS ORDERED: PIPERACILLIN/TAZOBACTAM 3.375 GM in IV NORMAL SALINE 50ML 50 ML IV ONE (22:00)
[2021-07-05] MEDS ORDERED: VANCOMYCIN 1.25 GM in IV NORMAL SALINE 250ML 250 ML IV ONE (22:30)
--- NOTE | 2021-07-05 23:26 | EKG ---
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
[2021-07-05 23:39] LABS: INFLUENZA A PATIENT NEGATIVE (NEGATIVE); INFLUENZA B PATIENT NEGATIVE (NEGATIVE)
[2021-07-05] MEDS ORDERED: IV NORMAL SALINE 250ML 250 ML ONE (23:42)
[2021-07-05] MEDS ORDERED: VANCOMYCIN 1 GM VIAL. ONE ×2 (23:43→23:50)
[2021-07-06] MEDS ORDERED: ONDANSETRON PF 4 MG/2 ML VIAL. IVP ONE ×2 (01:00→02:00)
[2021-07-06] MEDS ORDERED: HYDROmorphone PF 2 MG/ML VIAL ONE (01:44)
[2021-07-06] MEDS ORDERED: HYDROmorphone PF 2 MG/ML VIAL IM ONE (01:45)
[2021-07-06] MEDS ORDERED: MORPHINE SULFATE 10 MG/ML SYRINGE. SQ ONE (01:45)
[2021-07-06] MEDS ORDERED: diphenhydrAMINE 50 MG/ML VIAL IVP ONE (01:45)
[2021-07-06] MEDS ORDERED: VANCOMYCIN 0.75 GM in IV NORMAL SALINE 250ML 250 ML IV SCH (06:00)
== END 2021-07-06 02:00 | disposition short-term general hospital (02) ==
LOC: ER 19:47
DX: K85.90 Acute pancreatitis without necrosis or infection, unspecified (principal); K86.1 Other chronic pancreatitis; N12 Tubulo-interstitial nephritis, not specified as acute or chronic; N15.1 Renal and perinephric abscess; I10 Essential (primary) hypertension; F17.210 Nicotine dependence, cigarettes, uncomplicated; Z20.822 Contact with and (suspected) exposure to COVID-19; Z90.49 Acquired absence of other specified parts of digestive tract
CPT/HCPCS: 36415; 74150; 80053; 80307; 81001; 81025; 83690; 83735; 85025; 87428; 93005; 96361; 96365; 96367; 96372; 96374; 96375; 96376; 99285; C9803; G0480; J1170; J2405; J2543; J3370; J7030; J7050; U0003

== ENCOUNTER 2021-07-09 23:59 | Emergency (ER) | payer MEDICAID ==
[~2021-07-09] VITALS: Ht 162.6 cm; Wt 50.5 kg
--- NOTE | 2021-07-10 00:07 | PHYS DOC ---
Past History Past Medical History: Alcoholism, Anxiety, Depression, Hypertension, Pancreatitis, Other Additional Past Medical Histor: PCOS Past Medical History Perinephric abscess/cyst Past Surgical History: Cholecystectomy, Other Additional Past Surgical Histo: back surgery x 4 Smoking: Cigarettes Alcohol Use: Occasionally Drug Use: None General Adult HPI: HPI: ".. I hurt my butt..". I just tripped and fell.. and now my butt and low back hurts.. May renal flank also hurts.. I had that before.. and was sent to [facility]....they did not do anything...my pancreas hurts too,,, but I have been drinking alcohol the day... And now I got a headache too..." Patient is a 35 year old female who presents with above hx and complaints multiple pain complaints. Initial complaint was localized to her lower back and sacral area. From a trip and fall. Patient's pain complaints extended later to her head and her pancreas and right renal area. Patient has history of chronic pancreatitis and frequent alcoholic pancreatitis exacerbations. Patient seen here on for episode of acute on chronic pancreatitis, pyelonephritis and perinephric abscess. On that visit she was transferred to [facility] for further evaluation of possible drainage of perinephric cyst or possible abscess. Patient has followed at in the past for these issues. Patient has history of anxiety, depression, hypertension, PCOS, chronic back pain, tobacco use, frequent exacerbations of alcohol abuse, UTIs, pyelonephritis, perinephric cyst/abscess and noncompliance. Exam with distraction pain complaints were not consistent. Patient has exhibited possible narcotic seeking behaviors. Patient has had back surgeries and cholecystectomy. Pt. follows with [facility] for care. Review of Systems: Review of Systems: Constitutional: Denies fever or chills Eyes: Denies change in visual acuity HENT: Denies nasal congestion or sore throat. Complains of headache Respiratory: Denies cough or shortness of breath Cardiovascular: Denies chest pain or edema GI: Complains of abdominal pain, nausea. Denies, vomiting, bloody stools or diarrhea : Denies dysuria Musculoskeletal: Complains of sacral and low back pain Integument: Denies rash Neurologic: Denies headache, focal weakness or sensory changes Endocrine: Denies polyuria or polydipsia Lymphatic: Denies swollen glands Psychiatric: Denies depression or anxiety Family History: Family History: Noncontributory to presentation Current Medications: Current Meds: See nursing for home meds Allergies: Allergies: Allergies Coded Allergies Type Severity Reaction Last Updated Verified No Known Drug Allergies 05/04/21 No Physical Exam: PE: Constitutional: Reports acute distress, non-toxic appearance. [] HENT: Normocephalic, atraumatic, bilateral external ears normal, oropharynx moist, no oral exudates, nose normal. [] Eyes: PERRLA, EOMI, conjunctiva normal, no discharge. [] Neck: Normal range of motion, mild upper neck tenderness, supple, no stridor. [] Cardiovascular:Heart rate regular rhythm, no murmur [] Lungs & Thorax: Bilateral breath sounds equal apex with scattered wheezes on auscultation [] Abdomen: Bowel sounds decreased, soft, generalized tenderness, no masses, no pulsatile masses. Old surgery scars. Mild right flank tenderness on percussion. Patient did not exhibit the same complaints on exam was done on distraction Skin: Warm, dry, no erythema, no rash. [] Back: Low back tenderness, no CVA tenderness. Old surgery scars. Pain was not present on exam by distraction. Extremities: No tenderness, no cyanosis, no clubbing, ROM intact, no edema. [] Neurologic: Alert and oriented X 3, moves all extremities on request, has distal sensory, no focal deficits noted. Patient ambulatory without problems. No reported saddle loss. DTRs +2 patella and brachial. Psychologic: Affect anxious, judgement normal, mood normal. [] EKG: EKG: [] Radiology/Procedures: Radiology/Procedures: [address] [address] IMAGING REPORT Signed PATIENT: JOEY SOARES ACCOUNT: [id number] : 1985 LOCATION: ER AGE: 35 SEX: F EXAM STATUS: REG ER ORD. PHYSICIAN: MELISSA BARKSDALE MD REASON: fall, lumbar pain PROCEDURE: CT LUMBAR SPINE WO CONTRAST EXAMINATION: CT head and cervical and lumbar spine without IV contrast. INDICATION:35 years, Female, fall. COMPARISON: 07/05/2021 TECHNIQUE: Spiral acquisition of contiguous images from the skull base to the vertex were obtained. CT of the cervical spine was obtained using contiguous spiral imaging from the skull base to the upper thoracic level. Sagittal and coronal 2D reformatted series were provided by the technologist. Soft tissue and bone window algorithms were reviewed. Axial CT images of the lumbar spine obtained without IV contrast. Coronal and sagittal reformats obtained. Exposure: One or more of the following individualized dose reduction techniques were utilized for this examination: 1. Automated exposure control 2. Adjustment of the mA and/or kV according to patient size 3. Use of iterative reconstruction technique. FINDINGS: CT HEAD: Neither mass, midline shift, intracranial hemorrhage, acute/subacute ischemic changes, nor extraaxial fluid collections are seen. The paranasal sinuses, mastoid air cells, and middle ears are clear. The orbital contents appear within normal limits. CT CERVICAL SPINE: Anatomic alignment of the cervical spine is maintained. Neither fracture, subluxation, nor traumatic spondylolisthesis is seen. The vertebral body heights are preserved. Degenerative changes in cervical spine with disc space narrowing and osteophytes, worst at C5-6. Mild multilevel bilateral facet and uncovertebral arthropathy. There is no evidence of a large intraspinal hematoma. The prevertebral and paravertebral soft tissues are within normal limits. CT LUMBAR SPINE: The vertebral bodies are normal in height and alignment. No acute fracture or subluxation. No lytic or sclerotic lesion. Similar severe degenerative changes at L5-S1 with disc space narrowing, vacuum disc phenomena and osteophytes. Paravertebral soft tissue is unremarkable. IMPRESSION: 1. No acute intracranial abnormality. 2. No acute fracture of the cervical or lumbar spine. Electronically signed by: Stacey Cuello MD (07/10/2021 2:46 AM) [facility] DICTATED AND SIGNED BY: STACEY CUELLO MD DATE: 07/10/21 0237 CC: MELISSA BARKSDALE MD; ALCON JARVIS ~MTH0 0 [][address] [address] IMAGING REPORT Signed PATIENT: JOEY SOARES ACCOUNT: [id number] : 1985 LOCATION: ER AGE: 35 SEX: F EXAM STATUS: REG ER ORD. PHYSICIAN: MELISSA BARKSDALE MD REASON: hx fall hit head, now vomiting PROCEDURE: CT HEAD AND CERVICAL SPINE WO EXAMINATION: CT head and cervical and lumbar spine without IV contrast. INDICATION:35 years, Female, fall. COMPARISON: 07/05/2021 TECHNIQUE: Spiral acquisition of contiguous images from the skull base to the vertex were obtained. CT of the cervical spine was obtained using contiguous spiral imaging from the skull base to the upper thoracic level. Sagittal and coronal 2D reformatted series were provided by the technologist. Soft tissue and bone window algorithms were reviewed. Axial CT images of the lumbar spine ob tained without IV contrast. Coronal and sagittal reformats obtained. Exposure: One or more of the following individualized dose reduction techniques were utilized for this examination: 1. Automated exposure control 2. Adjustment of the mA and/or kV according to patient size 3. Use of iterative reconstruction technique. FINDINGS: CT HEAD: Neither mass, midline shift, intracranial hemorrhage, acute/subacute ischemic changes, nor extraaxial fluid collections are seen. The paranasal sinuses, mastoid air cells, and middle ears are clear. The orbital contents appear within normal limits. CT CERVICAL SPINE: Anatomic alignment of the cervical spine is maintained. Neither fracture, subluxation, nor traumatic spondylolisthesis is seen. The vertebral body heights are preserved. Degenerative changes in cervical spine with disc space narrowing and osteophytes, worst at C5-6. Mild multilevel bilateral facet and uncovertebral arthropathy. There is no evidence of a large intraspinal hematoma. The prevertebral and paravertebral soft tissues are within normal limits. CT LUMBAR SPINE: The vertebral bodies are normal in height and alignment. No acute fracture or subluxation. No lytic or sclerotic lesion. Similar severe degenerative changes at L5-S1 with disc space narrowing, vacuum disc phenomena and osteophytes. Paravertebral soft tissue is unremarkable. IMPRESSION: 1. No acute intracranial abnormality. 2. No acute fracture of the cervical or lumbar spine. Electronically signed by: Stacey Cuello MD (07/10/2021 2:46 AM) [facility] DICTATED AND SIGNED BY: STACEY CUELLO MD DATE: 07/10/21 0237 CC: MELISSA BARKSDALE MD; ALCON JARVIS ~MTH0 0 Heart Score: C/O Chest Pain: N/A Risk Factors: Risk Factors: DM, Current or recent (<one month) smoker, HTN, HLP, family history of CAD, obesity. Risk Scores: Score 0 - 3: 2.5% MACE over next 6 weeks - Discharge Home Score 4 - 6: 20.3% MACE over next 6 weeks - Admit for Clinical Observation Score 7 - 10: 72.7% MACE over next 6 weeks - Early Invasive Strategies Course & Med Decision Making: Course & Med Decision Making Pertinent Labs and Imaging studies reviewed. (See chart for details) Patient encouraged to follow-up at for her renal cyst. Patient encouraged not return to alcohol abuse because this would exacerbate her chronic pancreatitis. Patient take meds as previous directed on her discharge from [facility]. On reexam was noted with distractions she did not have pain in area as she previously complained. Do suspect there may be narcotic seeking behaviors. Patient was noted to be ambulatory without problems from the waiting room after discharge. Impression: 1. Reports trip and fall 2. Complaints of lumbosacral and bilateral hip pain 3. History of chronic pancreatitis 4. History of pyelonephritis 5. History of perinephric abscess/cyst right 6. Hx. of Alcohol Abuse 7. Suspect exhibiting possible narcotic seeking behaviors 8. History of medical noncompliance [] Dragon Disclaimer: Dragon Disclaimer: This electronic medical record was generated, in whole or in part, using a voice recognition dictation system. Departure Departure: Referrals: ALCON JARVIS (PCP) MELISSA BARKSDALE MD Jul 10, 2021 00:07
[2021-07-10] MEDS ORDERED: IOHEXOL 300 MG/ML 75 ML VIAL. IV ONE (01:45)
[2021-07-10] MEDS ORDERED: CONTRAST GIVEN. MC PRN (01:45)
[2021-07-10] MEDS ORDERED: ONDANSETRON ODT 4 MG TAB.RAPDIS PO ONE (01:45)
[2021-07-10] MEDS ORDERED: MORPHINE SULFATE 10 MG/ML SYRINGE. SQ ONE (02:00)
--- NOTE | 2021-07-10 02:49 | RAD ---
EXAMINATION: CT head and cervical and lumbar spine without IV contrast. INDICATION:35 years, Female, fall. COMPARISON: 07/05/2021 TECHNIQUE: Spiral acquisition of contiguous images from the skull base to the vertex were obtained. C T of the cervical spine was obtained using contiguous spiral imaging from the skull base to the upper thoracic level. Sagittal and coronal 2D reformatted series were provided by the technologist. Soft t issue and bone window algorithms were reviewed. Axial CT images of the lumbar spine obtained without IV contrast. Coronal and sagittal reformats obtained. Exposure: One or more of the following individualized dose reduction techniques were utilized for thi s examination: 1. Automated exposure control 2. Adjustment of the mA and/or kV according to patient size 3. Use of iterative reconstruction technique. FINDINGS: CT HEAD: Neither mass, midline shift, intracranial hemorrhage, acute/subacute ischemic changes, nor extraaxial fluid collections are seen. The paranasal sinuses, mastoid air cells, and middle ears are clear. Th e orbital contents appear within normal limits. CT CERVICAL SPINE: Anatomic alignment of the cervical spine is maintained. Neither fracture, subluxation, nor traumatic spondylolisthesis is seen. The vertebral body heights are preserved. Degenerative changes in cervical spine with disc space narrowing and osteophytes, worst at C5-6. Mild multilevel bilateral facet and uncovertebral arthropathy. There is no evidence of a large intraspinal hematoma. The prevertebral and paravertebral soft tissues are within normal limits. CT LUMBAR SPINE: The vertebral bodies are normal in height and alignment. No acute fracture or subluxation. No lytic o r sclerotic lesion. Similar severe degenerative changes at L5-S1 with disc space narrowing, vacuum di sc phenomena and osteophytes. Paravertebral soft tissue is unremarkable. IMPRESSION: 1. No acute intracranial abnormality. 2. No acute fracture of the cervical or lumbar spine. Electronically signed by: Brooklynn Cuello MD (07/10/2021 2:46 AM) [facility]
--- NOTE | 2021-07-10 03:06 | RAD ---
EXAMINATION: CT abdomen and pelvis with and without IV contrast. INDICATION:35 years, Female, fall. TECHNIQUE: Axial CT images of the abdomen and pelvis were obtained. Coronal and sagittal reformatted performed. COMPARISON: 07/05/2021. Exposure: One or more of the following individualized dose reduction techniques were utilized for thi s examination: 1. Automated exposure control 2. Adjustment of the mA and/or kV according to patient size 3. Use of iterative reconstruction technique. FINDINGS: LOWER CHEST: Unremarkable. ABDOMEN/PELVIS: Diffuse hepatic steatosis. No suspicious focal hepatic lesion. Cholecystectomy. No biliary ductal dil ation. Unremarkable spleen. Mildly atrophic pancreas. Peripancreatic fat stranding, similar to prior exam. No adrenal nodule. Redemonstrated large subcapsular collection at the lateral aspect of the left kidney with thickened p eripheral rim, slightly decreasing in size since prior exam, now measures 8.0 x 5.2 cm, previously 9. 2 x 6.1 cm. No hydronephrosis. Mild urothelial thickening with enhancement of the proximal left urete r. Mild inflammatory stranding in the perinephric fat. No renal or ureteral stone. Right kidney is un remarkable. No bowel obstruction. Unremarkable abdominal aorta. No lymphadenopathy. Unremarkable urinary bladder and uterus. No pneumoperitoneum or ascites. Similar presacral soft tissue thickening. MUSCULOSKELETAL STRUCTURES: No acute osseous process. Severe degenerative changes at L5-S1. IMPRESSION: 1. No acute abnormality in the abdomen or pelvis. 2. Slightly decreasing size of subcapsular left renal collection indenting renal parenchyma. 3. Similar mild urothelial thickening with enhancement of the proximal left ureter. Similar left alex nephric fat stranding. Findings suggesting of acute pyelonephritis. 4. Other chronic/incidental findings, as described above. Electronically signed by: Brooklynn Cuello MD (07/10/2021 3:04 AM) [facility]
[2021-07-10 05:00] VITALS: BP 140/93
== END 2021-07-10 06:13 | disposition home or self-care (01) ==
LOC: ER 23:59
DX: M54.59 Other low back pain (principal); M53.3 Sacrococcygeal disorders, not elsewhere classified; M25.551 Pain in right hip; M25.552 Pain in left hip; R10.84 Generalized abdominal pain; F10.20 Alcohol dependence, uncomplicated; F41.9 Anxiety disorder, unspecified; F32.9 Major depressive disorder, single episode, unspecified; I10 Essential (primary) hypertension; F17.210 Nicotine dependence, cigarettes, uncomplicated; Y90.9 Presence of alcohol in blood, level not specified; W01.0XXA Fall on same level from slipping, tripping and stumbling without subsequent striking against object, initial encounter; Y93.89 Activity, other specified; Y92.89 Other specified places as the place of occurrence of the external cause; Y99.8 Other external cause status
CPT/HCPCS: 70450; 72125; 72131; 72193; 74170; 96372; 99284; J2270; Q0162

== ENCOUNTER 2021-07-20 11:17 | Inpatient (IN) | payer MEDICAID ==
[~2021-07-20] VITALS: Ht 162.6 cm; Wt 49.7 kg
[2021-07-20] MEDS ORDERED: MORPHINE SULFATE 4 MG/ML DISP.SYRIN. IV ONE (12:00)
[2021-07-20] MEDS ORDERED: diphenhydrAMINE 50 MG/ML VIAL IVP ONE ×2 (12:00→16:15)
[2021-07-20] MEDS ORDERED: IV NORMAL SALINE 1,000ML 1,000 ML IV ONE (12:15)
[2021-07-20 12:20] LABS: BASO # 0.1 x10^3/uL (0.0-0.2); BASO % 1 % (0-3); EOS # 0.2 x10^3/uL (0.0-0.7); EOS % 2 % (0-3); HEMOGLOBIN 13.4 g/dL (12.0-15.5); LYMPH # 2.2 x10^3/uL (1.0-4.8); LYMPH % 29 % (24-48); MEAN CORPUSCULAR HEMOGLOBIN 33 pg (25-35); MEAN CORPUSCULAR HGB CONC 33 g/dL (31-37); MEAN CORPUSCULAR VOLUME 99 fL (79-100); MONO # 0.4 x10^3/uL (0.0-1.1); MONO % 5 % (0-9); NEUT # 4.8 x10^3uL (1.8-7.7); NEUT % 63 % (31-73); PLATELET COUNT 236 x10^3/uL (140-400); RED BLOOD COUNT 4.03 x10^6/uL (3.50-5.40); RED CELL DISTRIBUTION WIDTH 16.3 % (11.5-14.5); WHITE BLOOD COUNT 7.6 x10^3/uL (4.0-11.0)
[2021-07-20 12:30] LABS: CALCIUM 8.8 mg/dL (8.5-10.1); CREATININE 0.7 mg/dL (0.6-1.0); GFR 95.2; POTASSIUM 3.2 mmol/L (3.5-5.1)
[2021-07-20 12:36] LABS: ALBUMIN 3.4 g/dL (3.4-5.0); ALBUMIN/GLOBULIN RATIO 0.7 (1.0-1.7)
[2021-07-20 12:38] LABS: CLARITY,URINE CLOUDY; COLOR,URINE YELLOW; GLUCOSE,URINE NEG (NEG)
[2021-07-20 12:39] LABS: HYALINE CASTS, URINE FEW /HPF; NITRITE,URINE NEG (NEG); SQUAMOUS EPITHELIAL CELL,UR MOD /LPF; UROBILINOGEN,URINE 0.2 mg/dL (0.2 mg/dL)
[2021-07-20 12:40] LABS: BACTERIA,URINE 0 /HPF (0-FEW); RBC,URINE RARE /HPF (0-2); WBC,URINE OCC /HPF (0-4)
[2021-07-20] MEDS ORDERED: HYDROmorphone PF 2 MG/ML VIAL IVP ONE ×2 (13:00→15:45)
--- NOTE | 2021-07-20 13:48 | PHYS DOC ---
Past History Past Medical History: Alcoholism, Anxiety, Depression, Hypertension, Pancreatitis, Other Additional Past Medical Histor: PCOS Past Surgical History: Cholecystectomy, Other Additional Past Surgical Histo: back surgery x 4 Smoking: Cigarettes Alcohol Use: Occasionally Drug Use: Opiates (prescribed) General Adult EDM: Chief Complaint: ABDOMINAL PAIN HPI: HPI: Patient is a 35 year old female with past medical history of pancreatitis who presents with abdominal pain that began last night. Patient rates her pain 10/10 nonradiating in her upper abdomen. Patient reports she had 56 beers to drink yesterday. She has not had any alcohol today. Last night, she began vomiting and was "cold and clammy all night." Today, she has vomited twice and continues to have severe abdominal pain. Patient has no other complaints. Review of Systems: Review of Systems: ROS negative or noncontributory except as mentioned in HPI. Current Medications: Current Meds: Current Medications Medications (Trade) Dose Ordered Sig/Paco Start Time Stop Time Status Last Admin Dose Admin Diphenhydramine HCl (Benadryl) 50 mg 1X ONCE 07/20/21 12:00 07/20/21 12:01 DC 07/20/21 12:12 50 MG Hydromorphone HCl (Dilaudid) 2 mg 1X ONCE 07/20/21 13:00 07/20/21 13:25 DC Morphine Sulfate (Morphine 4mg Syringe) 6 mg 1X ONCE 07/20/21 12:00 07/20/21 12:01 DC 07/20/21 12:16 6 MG Sodium Chloride 1,000 ml @ 1,000 mls/hr 1X ONCE 07/20/21 12:15 07/20/21 13:14 DC 07/20/21 12:20 1,000 MLS/HR Allergies: Allergies: Allergies Coded Allergies Type Severity Reaction Last Updated Verified No Known Drug Allergies 05/04/21 No Physical Exam: PE: Constitutional: Well developed, well nourished, no acute distress, non-toxic appearance. HENT: Normocephalic, atraumatic, bilateral external ears normal, nose normal. Eyes: EOMI, conjunctiva normal, no discharge. Neck: Normal range of motion, no stridor. Abdomen: Bowel sounds normal, soft, epigastric tenderness without rebound or guarding, no masses, no pulsatile masses. Skin: Warm, dry, no erythema, no rash. Extremities: No cyanosis, no clubbing, ROM intact, no edema. Neurologic: Alert and oriented x4, normal motor function, normal sensory function, no focal deficits noted. Current Patient Data: Labs: Laboratory Tests Test 07/20/21 11:11 07/20/21 11:45 07/20/21 11:57 POC Urine HCG, Qualitative hcg negative (Negative) Urine Collection Type Unknown Urine Color Yellow Urine Clarity Cloudy Urine pH >8.5 Urine Specific [place] 1.020 Urine Protein 30 mg/dl (NEG-TRACE) Urine Glucose (UA) Neg mg/dL (NEG) Urine Ketones (Stick) Neg mg/dL (NEG) Urine Blood Small (NEG) Urine Nitrite Neg (NEG) Urine Bilirubin Neg (NEG) Urine Urobilinogen Dipstick 0.2 mg/dL (0.2 mg/dL) Urine Leukocyte Esterase Neg (NEG) Urine RBC Rare /HPF (0-2) Urine WBC Occ /HPF (0-4) Urine Squamous Epithelial Cells Mod /LPF Urine Bacteria 0 /HPF (0-FEW) Urine Hyaline Casts Few /HPF Urine Mucus Slight /LPF White Blood Count 7.6 x10^3/uL (4.0-11.0) Red Blood Count 4.03 x10^6/uL (3.50-5.40) Hemoglobin 13.4 g/dL (12.0-15.5) Hematocrit 40.0 % (36.0-47.0) Mean Corpuscular Volume 99 fL (79-100) Mean Corpuscular Hemoglobin 33 pg (25-35) Mean Corpuscular Hemoglobin Concent 33 g/dL (31-37) Red Cell Distribution Width 16.3 % (11.5-14.5) H Platelet Count 236 x10^3/uL (140-400) Neutrophils (%) (Auto) 63 % (31-73) Lymphocytes (%) (Auto) 29 % (24-48) Monocytes (%) (Auto) 5 % (0-9) Eosinophils (%) (Auto) 2 % (0-3) Basophils (%) (Auto) 1 % (0-3) Neutrophils # (Auto) 4.8 x10^3uL (1.8-7.7) Lymphocytes # (Auto) 2.2 x10^3/uL (1.0-4.8) Monocytes # (Auto) 0.4 x10^3/uL (0.0-1.1) Eosinophils # (Auto) 0.2 x10^3/uL (0.0-0.7) Basophils # (Auto) 0.1 x10^3/uL (0.0-0.2) Sodium Level 135 mmol/L (136-145) L Potassium Level 3.2 mmol/L (3.5-5.1) L Chloride Level 96 mmol/L (98-107) L Carbon Dioxide Level 27 mmol/L (21-32) Anion Gap 12 (6-14) Blood Urea Nitrogen 5 mg/dL (7-20) L Creatinine 0.7 mg/dL (0.6-1.0) Estimated GFR (Cockcroft-Gault) 95.2 BUN/Creatinine Ratio 7 (6-20) Glucose Level 109 mg/dL (70-99) H Calcium Level 8.8 mg/dL (8.5-10.1) Total Bilirubin 1.0 mg/dL (0.2-1.0) Aspartate Amino Transferase (AST) 37 U/L (15-37) Alanine Aminotransferase (ALT) 23 U/L (14-59) Alkaline Phosphatase 177 U/L (46-116) H Troponin I High Sensitivity 6 ng/L (4-50) Total Protein 8.0 g/dL (6.4-8.2) Albumin 3.4 g/dL (3.4-5.0) Albumin/Globulin Ratio 0.7 (1.0-1.7) L Ethyl Alcohol Level < 10 mg/dL (0-10) Vital Signs: Vital Signs Date Time Temp Pulse Resp B/P (MAP) Pulse Ox O2 Delivery O2 Flow Rate FiO2 07/20/21 15:53 20 97 07/20/21 13:35 22 98 07/20/21 12:16 19 100 07/20/21 11:35 98.4 98 18 174/111 (132) 100 EKG: EKG: EKG Interpreted by Dr. Angulo at 1201: Regular rate and rhythm 100 bpm with no ectopic beats. QT 388 ms/QTc 504 ms. No STEMI. Radiology/Procedures: Radiology/Procedures: PROCEDURE: CT ABD PELV W/ IV CONTRST ONLY INDICATION: Reason: Intractable abdominal pain / Spl. Instructions: / History: COMPARISON: July 10, 2021 TECHNIQUE: Axial CT images were obtained through the abdomen and pelvis with intravenous contrast. One or more of the following individualized dose reduction techniques were utilized for this examination: 1. Automated exposure control; 2. Adjustment of the mA and/or kV according to patient size; 3. Use of iterative reconstruction technique. FINDINGS: Vascular: No abdominal aortic aneurysm. Hepatobiliary: Liver is low density which can be seen with fatty infiltration. Postcholecystectomy changes. Pancreas: No peripancreatic edema. Spleen: Spleen unremarkable. Renal/Bladder: There is a large fluid collection seen which appears subcapsular in nature at the left kidney. There is a thick enhancing rind with adjacent edema to the fat. This fluid collection currently measures up to about 75 x 51 mm axial diameter and was previously about 85 x 50 mm maximum axial diameter. There is repeat demonstration of some thickening of the urothelium on the left. There is some mass effect on the left kidney. Prominent enhancement of left ureter with some haziness to the adjacent fat. Urinary bladder is partially distended. There is some mild prominence of the urothelium within the right ureter as well. Gastrointestinal: No periappendiceal inflammatory changes. There is some mild presacral edema again seen. There are some scattered mildly prominent loops of small bowel without a high-grade transition point to suggest obstruction. IMPRESSION: * Repeat demonstration of a large subcapsular fluid collection at the left kidney with an enhancing rind and adjacent edema to the fat. The overall size appears slightly decreased from prior. Differential considerations would include seroma/hematoma in evolution with infectious etiology such as abscess also a consideration. There is associated mass effect on the kidney. There is also some fluid seen tracking more superiorly adjacent to the spleen abutting the left renal fluid collection which could be secondary to a developing fluid collection adjacent to the spleen. This also has an enhancing wall and some adjacent edema to the fat and appears increased from prior and abuts the renal fluid collection. * Liver is low density which can be seen with fatty infiltration. * There is again some prominence of the urothelium most severe on the left which could be from causes such as urinary tract infection. Electronically signed by: Abhishek Biswas MD (07/20/2021 3:13 PM) [id number] Heart Score: C/O Chest Pain: Yes HEART Score for Chest Pain: HEART Score for Chest Pain Response (Comments) Value History Slighlty/Non-Suspicious 0 ECG Normal 0 Age < 45 0 Risk Factors 1 or 2 Risk Factors 1 Troponin < Normal Limit 0 Total 1 Risk Factors: HTN, cigarette smoker Course & Med Decision Making: Course & Med Decision Making Pertinent Labs and Imaging studies reviewed. (See chart for details) Patient is a 35-year-old female well-known to the emergency department who presents with severe abdominal pain. Patient has known history of pancreatitis and continues to drink alcohol. She states that yesterday she had 5 or 6 beers, which incited her current episode of abdominal pain and vomiting. Labs actually look very good compared to her typical values with this pain. Dr. Pennington, hospitalist, requests CT imaging performed prior to admission. Pancreas within normal limits on CT imaging, however persistent left subcapsular renal fluid collection seen on imaging. It is approximately 1 cm smaller than prior imaging. Spoke to urology at [facility], who states that as the fluid collection is getting smaller and during her prior admission IR refused to drain, there is no further intervention from a urological standpoint. Patient will be admitted to Dr. Pennington for pain management. Dragon Disclaimer: Dragon Disclaimer: This electronic medical record was generated, in whole or in part, using a voice recognition dictation system. Departure Departure: Impression: Primary Impression: Acute on chronic pancreatitis Additional Impressions: Abdominal pain Qualified Codes: R10.10 - Upper abdominal pain, unspecified Mass of kidney of unknown nature Disposition: ADMITTED INPATIENT Admitting Physician: Florentino Pennington Condition: GUARDED Referrals: ALCON JARVIS (PCP) JEET DALAL Jul 20, 2021 13:48
[2021-07-20] MEDS ORDERED: ONDANSETRON PF 4 MG/2 ML VIAL. IVP ONE (14:00)
[2021-07-20] MEDS ORDERED: POTASSIUM BICARB 20 MEQ EFFERVESCENT TABLET. PO ONE (14:00)
[2021-07-20] MEDS ORDERED: IOHEXOL 300 MG/ML 75 ML VIAL. IV ONE (14:30)
[2021-07-20] MEDS ORDERED: CONTRAST GIVEN. MC PRN (14:30)
--- NOTE | 2021-07-20 15:15 | RAD ---
INDICATION: Reason: Intractable abdominal pain / Spl. Instructions: / History: COMPARISON: July 10, 2021 TECHNIQUE: Axial CT images were obtained through the abdomen and pelvis with intravenous contrast. One or more of the following individualized dose reduction techniques were utilized for this examinat ion: 1. Automated exposure control; 2. Adjustment of the mA and/or kV according to patient size; 3 . Use of iterative reconstruction technique. FINDINGS: Vascular: No abdominal aortic aneurysm. Hepatobiliary: Liver is low density which can be seen with fatty infiltration. Postcholecystectomy ch anges. Pancreas: No peripancreatic edema. Spleen: Spleen unremarkable. Renal/Bladder: There is a large fluid collection seen which appears subcapsular in nature at the left kidney. There is a thick enhancing rind with adjacent edema to the fat. This fluid collection curren tly measures up to about 75 x 51 mm axial diameter and was previously about 85 x 50 mm maximum axial diameter. There is repeat demonstration of some thickening of the urothelium on the left. There is so me mass effect on the left kidney. Prominent enhancement of left ureter with some haziness to the adj acent fat. Urinary bladder is partially distended. There is some mild prominence of the urothelium wi thin the right ureter as well. Gastrointestinal: No periappendiceal inflammatory changes. There is some mild presacral edema again s een. There are some scattered mildly prominent loops of small bowel without a high-grade transition p oint to suggest obstruction. IMPRESSION: * Repeat demonstration of a large subcapsular fluid collection at the left kidney with an enhancing rind and adjacent edema to the fat. The overall size appears slightly decreased from prior. Differen tial considerations would include seroma/hematoma in evolution with infectious etiology such as absce ss also a consideration. There is associated mass effect on the kidney. There is also some fluid seen tracking more superiorly adjacent to the spleen abutting the left renal fluid collection which could be secondary to a developing fluid collection adjacent to the spleen. This also has an enhancing wal l and some adjacent edema to the fat and appears increased from prior and abuts the renal fluid colle ction. * Liver is low density which can be seen with fatty infiltration. * There is again some prominence of the urothelium most severe on the left which could be from cause s such as urinary tract infection. Electronically signed by: Abhishek Biswas MD (07/20/2021 3:13 PM) [id number]
--- NOTE | 2021-07-20 15:40 | HP ---
DATE OF SERVICE: 07/20/2021 ADMIT DATE: 07/20/2021 ATTENDING PHYSICIAN: Dr. Pennington. CHIEF COMPLAINT: Abdominal pain. HISTORY OF PRESENT ILLNESS: The patient is a 35-year-old female with a longstanding history of frequent admissions with alcoholic pancreatitis. She is still drinking alcohol. She reports drinking 6 beers yesterday, which was [employer]. She had vomiting, nonbloody bilious vomitus, severe abdominal pain, rates 10/10. In the ED, the workup was fairly unremarkable. Transaminases and lipase were not particularly elevated. Clinically, she has acute pancreatitis. She is admitted for a recurrent episode due to her alcohol use. We have recommended her that she avoid further alcohol use. Each time, she has stated she would stop drinking, but she continues to drink. She still has underlying depression with anxiety. PAST MEDICAL HISTORY: Significant for anxiety, depression, hypertension, noncompliance, chronic alcoholism. She has back surgeries, multiple and cholecystectomy. She is a smoker. She drinks alcohol. There is some other substance abuse in addition in the past. ALLERGIES: She has no recorded drug allergies. CURRENT PRESCRIPTION MEDICATIONS: None. She was noncompliant. FAMILY HISTORY: Noncontributory. REVIEW OF SYSTEMS: Significant for chronic alcoholism, and frequent admissions. PHYSICAL EXAMINATION: GENERAL: When I saw her, this is a pleasant young female. VITAL SIGNS: Initial vital signs showed a blood pressure of 170/100, pulse 98 and regular. She was afebrile, oxygen saturation 100% on room air. HEENT: Head is without trauma. Pupils are reactive. Sclerae nonicteric. Oropharynx clear. NECK: Supple, no bruits identified. LUNGS: Good breath sounds. CARDIOVASCULAR: Showed regular heart tones. ABDOMEN: Diffuse tenderness to palpation. There is guarding, but no rebound tenderness. Bowel sounds are hypoactive. EXTREMITIES: Show no cyanosis. NEUROLOGIC: Focally intact. She does not have any impending withdrawal symptoms. PERTINENT LABORATORY STUDIES: Alcohol level less than 10. Chemistry panel, nonfasting blood sugar 109. Potassium 3.2 mEq. The lipase was not particularly elevated over 103, hemoglobin was 13.4 grams, white count 7600. ASSESSMENT: 1. A 35-year-old female with alcoholic pancreatitis. 2. Recurrent chronic pancreatitis. 3. Chronic alcohol use. 4. Underlying depression with anxiety. 5. Noncompliance. PLAN: 1. Admit to the inpatient unit. 2. N.p.o. 3. IV hydration. 4. Pain and nausea control as multiple previous admissions. DIAMOND/MARIAM/JOHN DR: DIAMOND/amparo TID: [id number] CC:
[2021-07-20] MEDS ORDERED: hydrALAZINE 20 MG/ML VIAL. IV ONE (18:00)
[2021-07-20] MEDS: HYDROmorphone PF 2 MG/ML VIAL IVP PRN ×2 (19:27→22:09)
[2021-07-20] MEDS ORDERED: ONDANSETRON PF 4 MG/2 ML VIAL. IVP PRN (19:45)
[2021-07-20 20:04] VITALS: BP 161/94
[2021-07-20] MEDS: METOCLOPRAMIDE HCL 10 MG/2 ML VIAL. IVP PRN (21:14)
[2021-07-20] MEDS: IV NORMAL SALINE 1,000ML 1,000 ML IV SCH (21:20)
[2021-07-20 23:04] VITALS: BP 132/85
[2021-07-20] MEDS ORDERED: TRAM1TAB57 PO (23:20)
[2021-07-20] MEDS ORDERED: QUET50TA5 PO (23:20)
[2021-07-20] MEDS ORDERED: AMLO5TAB4 PO (23:20)
[2021-07-21] MEDS: MORPHINE SULFATE 4 MG/ML DISP.SYRIN. IV PRN ×10 (00:02→22:17)
[2021-07-21 05:35] VITALS: BP 134/66
[2021-07-21] MEDS: METOCLOPRAMIDE HCL 10 MG/2 ML VIAL. IVP PRN ×3 (05:56→19:51)
[2021-07-21] MEDS: IV NORMAL SALINE 1,000ML 1,000 ML IV SCH ×2 (05:56→16:30)
[2021-07-21 11:38] VITALS: BP 157/101
[2021-07-21 15:00] VITALS: BP 160/106
--- NOTE | 2021-07-21 18:58 | EKG ---
[address] [address] Test Date: 2021-07-20 Test Time: 11:42:56 Pat Name: JOEY SOARES Department: Room: 117 A Gender: F Senior Asset Manager: : 1985 Requested By: JEET DALAL Order Number: [id number] Reading MD: Nelson Reyes Measurements Intervals [place] Rate: 100 P: 62 NV: 134 QRS: 64 QRSD: 82 T: 62 QT: 388 QTc: 504 Interpretive Statements SINUS RHYTHM NON SPECIFIC ST-T WAVE CHANGES Electronically Signed On 07-22-2021 15:08:01 CDT by Nelson Reyes
[2021-07-21 19:00] VITALS: BP 163/107
--- NOTE | 2021-07-21 21:46 | PN ---
DATE: 07/21/2021 ATTENDING PHYSICIAN: Dr. Pennington. SUBJECTIVE: The patient is sober. She is willing to try some clear liquids. Pain and nausea is fairly well controlled. OBJECTIVE FINDINGS: VITAL SIGNS: Blood pressure this morning is 134/66 mmHg, pulse is 60 and regular. She is afebrile. Oxygen saturation 94% on room air. HEENT: Head is without trauma. Pupils are reactive. Sclerae nonicteric. Oropharynx is clear. NECK: Supple, no bruits. LUNGS: Shallow respirations. CARDIOVASCULAR: Regular heart tones. ABDOMEN: Minimal tenderness to palpation. There is no guarding or rebound tenderness. EXTREMITIES: Without edema. NEUROLOGIC FINDINGS: Flat affect, otherwise intact. ASSESSMENT: 1. A 35-year-old female with a recurrent chronic pancreatitis. 2. Chronic alcoholism. 3. Underlying depression with anxiety. 4. Noncompliance of meds. PLAN: 1. Continue IV hydration, but a lower rate. 2. Try clear liquids orally. 3. Pain and nausea control. LUCERO DR: DIAMOND/amparo TID: [id number]
[2021-07-22] MEDS: IV NORMAL SALINE 1,000ML 1,000 ML IV SCH (00:01)
[2021-07-22] MEDS: MORPHINE SULFATE 4 MG/ML DISP.SYRIN. IV PRN ×4 (00:24→08:12)
[2021-07-22] MEDS: METOCLOPRAMIDE HCL 10 MG/2 ML VIAL. IVP PRN ×2 (02:38→08:11)
[2021-07-22 05:00] VITALS: BP 188/118
[2021-07-22] MEDS ORDERED: OXYC1TAB22 PO ×2 (08:43→08:47)
--- NOTE | 2021-07-22 10:15 | DS ---
DATE OF DISCHARGE: 07/22/2021 ATTENDING PHYSICIAN: Dr. Pennington. FINAL DISCHARGE DIAGNOSES: 1. Alcoholic pancreatitis. 2. Chronic alcoholism. 3. Chronic continued alcohol abuse. 4. Underlying depression with anxiety. 5. Noncompliance of meds. 6. Essential hypertension. HISTORY AND PHYSICAL: The patient is at age 35. She continues to drink. She has underlying depression and anxiety. She has multiple frequent admissions for alcoholic pancreatitis. PHYSICAL EXAMINATION: Please see my dictated note. PERTINENT LABORATORY AND X-RAY STUDIES: Admission hemoglobin 13.4 grams, white count 7600. Amylase was not particularly elevated. Electrolytes: Sodium 135, potassium 3.2 mEq. This will be followed up as an outpatient. She had imaging studies, which showed a subcapsular fluid in the left kidney, which is slightly decreased from prior film. This is suggestive of a seroma or hematoma in evolution. She did not have any infectious process ongoing. She has low density in the liver with fatty infiltration, prominence of the urothelium. There was no pancreatic pseudocyst or abscess. COURSE IN HOSPITAL: The patient was admitted. She was treated for pancreatitis, kept n.p.o., IV hydration, pain and nausea control. She did better. Diet was advanced. By the third hospital day, her vital signs were quite stable. She was afebrile. Her abdominal exam is benign. I explained to her that the fluid collection in the kidneys is an incidental finding. It is diminishing and is not an issue right now. I sent her home with a script for Percocet 10/325 one every 6 hours p.r.n. pain, #30. Strong encouragement to avoid further alcohol use. Whether or not she will quit drinking or remains the same to be seen. She was also scheduled to continue her Seroquel and amlodipine. Whether or not she is compliant with these meds is also questionable. In any event, the patient was then discharged from our hospital in stable condition with explicit drug and followup care. JOSEPHINE DR: Edna TID: [id number] CC: AILYN Mitchell
== END 2021-07-22 09:42 | disposition home or self-care (01) | DRG 440 ==
LOC: ER 11:17 → ER HOLD 16:14 → 1 SOUTH 17:58
PROVIDERS: ADMIT Hospitalist; ATTEND Hospitalist
DX: K85.20 Alcohol induced acute pancreatitis without necrosis or infection (principal); F10.20 Alcohol dependence, uncomplicated; F32.A Depression, unspecified; F41.9 Anxiety disorder, unspecified; I10 Essential (primary) hypertension; K86.1 Other chronic pancreatitis; Y90.0 Blood alcohol level of less than 20 mg/100 ml; N28.89 Other specified disorders of kidney and ureter; Z87.891 Personal history of nicotine dependence; Z91.14 Patient's other noncompliance with medication regimen; Z90.49 Acquired absence of other specified parts of digestive tract
CPT/HCPCS: 36415; 74177; 80053; 81001; 81025; 83690; 84484; 85025; 93005; 96361; 96374; 96375; 96376; G0480; J0360; J1170; J1200; J2060; J2270; J2405; J2765; Q9967; 99285-25; J7030

== ENCOUNTER 2021-07-28 17:18 | Emergency (ER) | payer MEDICAID ==
[~2021-07-28] VITALS: Ht 162.6 cm; Wt 49.7 kg
[~2021-07-28 17:18] MED LIST changes: +AMLO5TAB4 PO; +OXYC1TAB22 PO; +QUET50TA5 PO; +TRAM1TAB57 PO
[2021-07-28] MEDS ORDERED: ONDANSETRON PF 4 MG/2 ML VIAL. IVP ONE ×2 (18:00→22:30)
[2021-07-28] MEDS ORDERED: HYDROmorphone PF 1 MG/ML DISP.SYRIN ONE (18:00)
[2021-07-28] MEDS ORDERED: ONDANSETRON PF 4 MG/2 ML VIAL. ONE (18:00)
[2021-07-28] MEDS ORDERED: IV NORMAL SALINE 1,000ML 1,000 ML IV ONE (18:00)
[2021-07-28] MEDS ORDERED: HYDROmorphone PF 1 MG/ML DISP.SYRIN IVP ONE ×5 (18:00→23:00)
[2021-07-28 18:10] LABS: BASO # 0.1 x10^3/uL (0.0-0.2); BASO % 2 % (0-3); EOS # 0.2 x10^3/uL (0.0-0.7); EOS % 2 % (0-3); HEMATOCRIT 37.5 % (36.0-47.0); HEMOGLOBIN 12.7 g/dL (12.0-15.5); LYMPH # 2.9 x10^3/uL (1.0-4.8); LYMPH % 32 % (24-48); MEAN CORPUSCULAR HEMOGLOBIN 33 pg (25-35); MEAN CORPUSCULAR HGB CONC 34 g/dL (31-37); MEAN CORPUSCULAR VOLUME 98 fL (79-100); MONO % 11 % (0-9); NEUT # 4.8 x10^3uL (1.8-7.7); NEUT % 53 % (31-73); PLATELET COUNT 398 x10^3/uL (140-400); RED BLOOD COUNT 3.82 x10^6/uL (3.50-5.40); RED CELL DISTRIBUTION WIDTH 16.5 % (11.5-14.5)
[2021-07-28 18:16] LABS: BARBITURATES NEG (NEG); BENZODIAZEPINES NEG (NEG); CANNABINOIDS NEG (NEG); COCAINE NEG (NEG); METHADONE NEG (NEG); OPIATES NEG (NEG); PHENCYCLIDINE NEG (NEG)
--- NOTE | 2021-07-28 18:22 | EKG ---
[address] [address] Test Date: 2021-07-28 Test Time: 18:14:43 Pat Name: JOEY SOARES Department: Room: Gender: F Manager Media: VAHID : 1985 Requested By: KEESHA HUERTAS Order Number: [id number] Reading MD: Luciano Silva MD Measurements Intervals [place] Rate: 94 P: 55 [place]: 182 QRS: 24 QRSD: 98 T: 36 QT: 394 QTc: 499 Interpretive Statements SINUS RHYTHM PROLONGED QT Electronically Signed On 07-31-2021 7:06:20 CDT by Luciano Silva MD
[2021-07-28 18:23] LABS: CLARITY,URINE CLEAR; COLOR,URINE YELLOW; GLUCOSE,URINE NEG (NEG)
[2021-07-28 18:24] LABS: BACTERIA,URINE 0 /HPF (0-FEW); NITRITE,URINE NEG (NEG); RBC,URINE 0 /HPF (0-2); SQUAMOUS EPITHELIAL CELL,UR OCC /LPF; UROBILINOGEN,URINE 0.2 mg/dL (0.2 mg/dL); WBC,URINE 0 /HPF (0-4)
[2021-07-28 18:31] LABS: AMPHETAMINE/METHAMPHETAMINE NEG (NEG)
--- NOTE | 2021-07-28 19:14 | RAD ---
Exam: CT of abdomen and pelvis without contrast INDICATION: Abdominal pain, generalized TECHNIQUE: Sequential axial images through the abdomen and pelvis obtained without IV contrast. Sagit ale and coronal reformatted images were reconstructed from the axial data and reviewed. Exposure: One or more of the following in the visualized dose reduction techniques were utilized for this examination: 1. Automated exposure control 2. Adjustment of the MA and/or KV according to patient size 3. Use of iterative of reconstructive technique Comparisons: 07/20/2021 FINDINGS: Heart size is normal. No pericardial effusion. Visualized lung bases are clear. No pleural effusion. Diffuse hepatic steatosis. Spleen, pancreas, and adrenals are unremarkable. Gallbladder surgically ab sent. Persistent left-sided perinephric stranding. There is again seen a subcapsular left-sided fluid colle ction at the left kidney which measures approximately 4.9 x 7.1 cm in transverse dimension. No renal or ureteral calculi. Bladder is partially distended and not well evaluated. Uterus is not enlarged. Cystic lesion at the l eft adnexa which measures approximately 2.8 cm favored represent the left ovary, similar to prior exa m. Large and small bowel are unremarkable. No free intra-abdominal air or fluid. No obstruction. Abdominal aorta has normal course and caliber. No enlarged intra-abdominal lymph nodes are identified. No suspicious osseous lesions or acute fractures. IMPRESSION: 1. Similar appearance of the left kidney subcapsular fluid collection with adjacent inflammation. Di fferential remains unchanged from the prior study. 2. Diffuse hepatic steatosis. Electronically signed by: Anthony Urban MD (07/28/2021 7:11 PM) [facility]
--- NOTE | 2021-07-28 19:15 | RAD ---
Exam: Chest one view INDICATION: Abdominal pain TECHNIQUE: Frontal view of the chest Comparisons: 09/30/2020 FINDINGS: The cardiomediastinal silhouette and pulmonary vessels are within normal limits. The lung and pleural spaces are clear. IMPRESSION: No acute cardiopulmonary process. Electronically signed by: Anthony Urban MD (07/28/2021 7:12 PM) [facility]
--- NOTE | 2021-07-28 19:27 | PHYS DOC ---
Past History Past Medical History: Alcoholism, Anxiety, Depression, Hypertension, Pancreatitis, Other Additional Past Medical Histor: PCOS (KEESHA HUERTAS APRN) Past Surgical History: Cholecystectomy, Other Additional Past Surgical Histo: back surgery x 4 (KEESHA HUERTAS APRN) Smoking: Cigarettes Alcohol Use: Heavy Drug Use: Opiates (KEESHA HUERTAS APRN) General Adult EDM: Chief Complaint: ABDOMINAL PAIN HPI: HPI: Patient is a 35-year-old female who presents with abdominal pain for 3 days. Patient has a history of pancreatitis. Patient states that she has been drinking all day. Patient also reporting nausea vomiting. Patient has been seen multiple times in the emergency room and admitted for same complaint. Denies taking anything at home for pain. (KEESHA HUERTAS APRN) Review of Systems: Review of Systems: ROS At least 10 ROS systems have been reviewed and are negative except as documented in the HPI. General: Negative except as outlined in HPI above. Skin: Negative except as outlined in HPI above. HEENT: Negative except as outlined in HPI above. Neck: Negative except as outlined in HPI above. Respiratory: Negative except as outlined in HPI above.. Cardiovascular: Negative except as outlined in HPI above. Abdomen: Negative except as outlined in HPI above. : Negative except as outlined in HPI above. Back/MSK: Negative except as outlined in HPI above. Neuro: Negative except as outlined in HPI above. Psych: Negative except as outlined in HPI above. (KEESHA HUERTAS APRN) Current Medications: Current Meds: Current Medications Medications (Trade) Dose Ordered Sig/Paco Start Time Stop Time Status Last Admin Dose Admin Hydromorphone HCl (Dilaudid) 1 mg STK-MED ONCE 07/28/21 18:00 07/28/21 18:01 DC Ondansetron HCl (Zofran) 4 mg STK-MED ONCE 07/28/21 18:00 07/28/21 18:01 DC Sodium Chloride 1,000 ml @ 1,000 mls/hr 1X ONCE 07/28/21 18:00 07/28/21 18:59 07/28/21 18:05 1,000 MLS/HR (KEESHA HUERTAS APRN) Allergies: Allergies: Allergies Coded Allergies Type Severity Reaction Last Updated Verified No Known Drug Allergies 05/04/21 No (HUERTAS,KEESHA POWER HOUSE CONTROL ROOM OPERATOR) Physical Exam: PE: Constitutional: Well developed, well nourished, no acute distress, non-toxic appearance. [] HENT: bilateral external ears normal, oropharynx moist, no oral exudates, nose normal. [] Eyes: PERRLA,conjunctiva normal, no discharge. [] Neck: Normal range of motion, no tenderness, supple, no stridor. [] Cardiovascular:Heart rate regular rhythm, no murmur [] Lungs & Thorax: Bilateral breath sounds clear to auscultation [] Abdomen: Bowel sounds normal, soft, generalized tenderness Skin: Warm, dry, no erythema, no rash. [] Back: No tenderness, no CVA tenderness. [] Extremities: No tenderness, no cyanosis, no clubbing, ROM intact, no edema. [] Neurologic: Alert and oriented X 3, normal motor function, normal sensory function, no focal deficits noted. [] Psychologic: Abnormal judgment, anxious mood (KEESHA HUERTAS POWER HOUSE CONTROL ROOM OPERATOR) Current Patient Data: Labs: Laboratory Tests Test 07/28/21 16:58 07/28/21 17:35 07/28/21 17:40 POC Urine HCG, Qualitative hcg negative (Negative) White Blood Count 9.0 x10^3/uL (4.0-11.0) Red Blood Count 3.82 x10^6/uL (3.50-5.40) Hemoglobin 12.7 g/dL (12.0-15.5) Hematocrit 37.5 % (36.0-47.0) Mean Corpuscular Volume 98 fL (79-100) Mean Corpuscular Hemoglobin 33 pg (25-35) Mean Corpuscular Hemoglobin Concent 34 g/dL (31-37) Red Cell Distribution Width 16.5 % (11.5-14.5) H Platelet Count 398 x10^3/uL (140-400) Neutrophils (%) (Auto) 53 % (31-73) Lymphocytes (%) (Auto) 32 % (24-48) Monocytes (%) (Auto) 11 % (0-9) H Eosinophils (%) (Auto) 2 % (0-3) Basophils (%) (Auto) 2 % (0-3) Neutrophils # (Auto) 4.8 x10^3uL (1.8-7.7) Lymphocytes # (Auto) 2.9 x10^3/uL (1.0-4.8) Monocytes # (Auto) 1.0 x10^3/uL (0.0-1.1) Eosinophils # (Auto) 0.2 x10^3/uL (0.0-0.7) Basophils # (Auto) 0.1 x10^3/uL (0.0-0.2) Urine Opiates Screen Neg (NEG) Urine Methadone Screen Neg (NEG) Urine Barbiturates Neg (NEG) Urine Phencyclidine Screen Neg (NEG) Urine Amphetamine/Methamphetamine Neg (NEG) Urine Benzodiazepines Screen Neg (NEG) Urine Cocaine Screen Neg (NEG) Urine Cannabinoids Screen Neg (NEG) Urine Ethyl Alcohol Pos (NEG) Urine Collection Type Clean catch Urine Color Yellow Urine Clarity Clear Urine pH 7.0 Urine Specific [place] 1.010 Urine Protein Neg (NEG-TRACE) Urine Glucose (UA) Neg mg/dL (NEG) Urine Ketones (Stick) Neg mg/dL (NEG) Urine Blood Neg (NEG) Urine Nitrite Neg (NEG) Urine Bilirubin Neg (NEG) Urine Urobilinogen Dipstick 0.2 mg/dL (0.2 mg/dL) Urine Leukocyte Esterase Neg (NEG) Urine RBC 0 /HPF (0-2) Urine WBC 0 /HPF (0-4) Urine Squamous Epithelial Cells Occ /LPF Urine Bacteria 0 /HPF (0-FEW) Vital Signs: Vital Signs Date Time Temp Pulse Resp B/P (MAP) Pulse Ox O2 Delivery O2 Flow Rate FiO2 07/28/21 18:06 20 99 07/28/21 17:27 115 188/118 (141) (KEESHA HUERTAS POWER HOUSE CONTROL ROOM OPERATOR) EKG: EKG: [] (KEESHA HUERTAS POWER HOUSE CONTROL ROOM OPERATOR) Radiology/Procedures: Radiology/Procedures: []Exam: Chest one view INDICATION: Abdominal pain TECHNIQUE: Frontal view of the chest Comparisons: 09/30/2020 FINDINGS: The cardiomediastinal silhouette and pulmonary vessels are within normal limits. The lung and pleural spaces are clear. IMPRESSION: No acute cardiopulmonary process. Electronically signed by: Anthony Urban MD (07/28/2021 7:12 PM) [facility] Exam: CT of abdomen and pelvis without contrast INDICATION: Abdominal pain, generalized TECHNIQUE: Sequential axial images through the abdomen and pelvis obtained with out IV contrast. Sagittal and coronal reformatted images were reconstructed from the axial data and reviewed. Exposure: One or more of the following in the visualized dose reduction techniques were utilized for this examination: 1. Automated exposure control 2. Adjustment of the MA and/or KV according to patient size 3. Use of iterative of reconstructive technique Comparisons: 07/20/2021 FINDINGS: Heart size is normal. No pericardial effusion. Visualized lung bases are clear. No pleural effusion. Diffuse hepatic steatosis. Spleen, pancreas, and adrenals are unremarkable. Gallbladder surgically absent. Persistent left-sided perinephric stranding. There is again seen a subcapsular left-sided fluid collection at the left kidney which measures approximately 4.9 x 7.1 cm in transverse dimension. No renal or ureteral calculi. Bladder is partially distended and not well evaluated. Uterus is not enlarged. Cystic lesion at the left adnexa which measures approximately 2.8 cm favored represent the left ovary, similar to prior exam. Large and small bowel are unremarkable. No free intra-abdominal air or fluid. No obstruction. Abdominal aorta has normal course and caliber. No enlarged intra-abdominal lymph nodes are identified. No suspicious osseous lesions or acute fractures. IMPRESSION: 1. Similar appearance of the left kidney subcapsular fluid collection with adjacent inflammation. Differential remains unchanged from the prior study. 2. Diffuse hepatic steatosis. Electronically signed by: Anthony Urban MD (07/28/2021 7:11 PM) [facility] (KEESHA HUERTAS APRN) Heart Score: C/O Chest Pain: No Risk Factors: Risk Factors: DM, Current or recent (<one month) smoker, HTN, HLP, family history of CAD, obesity. Risk Scores: Score 0 - 3: 2.5% MACE over next 6 weeks - Discharge Home Score 4 - 6: 20.3% MACE over next 6 weeks - Admit for Clinical Observation Score 7 - 10: 72.7% MACE over next 6 weeks - Early Invasive Strategies (KEESHA HUERTAS APRN) Course & Med Decision Making: Course & Med Decision Making Pertinent Labs and Imaging studies reviewed. (See chart for details) [id number] female presents with abdominal pain for 3 days. Patient has a history of alcohol abuse along with pancreatitis. Patient is also reporting nausea and vomiting. Patient is afebrile. (KEESHA HUERTAS APRN) Course & Med Decision Making The patient's CMP is significant for a potassium of 2.6. Review of her chart shows that she is usually 3.0-3.4 at most. She has had a level of 2.6 in the past. I will give her 40 mEq p.o. We have also given her an additional 4 mg of Zofran. She is stable for discharge at this time. (OLIVIA ORTIZ DO) Dragon Disclaimer: Dragon Disclaimer: This electronic medical record was generated, in whole or in part, using a voice recognition dictation system. (KEESHA HUERTAS APRN) Departure Departure: Impression: Primary Impression: Hypokalemia Additional Impression: Alcohol intoxication Disposition: 01 HOME / SELF CARE / HOMELESS Condition: STABLE Referrals: ALCON JARVIS (PCP) Patient Instructions: Alcohol Intoxication, [id number], Hypokalemia-Brief KEESHA HUERTAS APRN Jul 28, 2021 19:27 OLIVIA ORTIZ DO Jul 28, 2021 22:07
[2021-07-28 21:31] LABS: ALBUMIN 2.8 g/dL (3.4-5.0); ALBUMIN/GLOBULIN RATIO 0.8 (1.0-1.7); CALCIUM 7.6 mg/dL (8.5-10.1); CREATININE 0.5 mg/dL (0.6-1.0); GFR 140.4; TOTAL BILIRUBIN 0.2 mg/dL (0.2-1.0); TOTAL PROTEIN 6.4 g/dL (6.4-8.2)
[2021-07-28 21:54] LABS: POTASSIUM 2.6 mmol/L (3.5-5.1)
[2021-07-28] MEDS ORDERED: POTASSIUM CHLORIDE 20 MEQ TABLET.ER. PO ONE (22:30)
[2021-07-28 23:45] VITALS: BP 143/76
== END 2021-07-28 23:45 | disposition home or self-care (01) ==
LOC: ER 17:18
DX: E87.6 Hypokalemia (principal); F10.229 Alcohol dependence with intoxication, unspecified; F41.9 Anxiety disorder, unspecified; F32.9 Major depressive disorder, single episode, unspecified; I10 Essential (primary) hypertension; F17.210 Nicotine dependence, cigarettes, uncomplicated; Y90.8 Blood alcohol level of 240 mg/100 ml or more
CPT/HCPCS: 36415; 71045; 74176; 80053; 80307; 81001; 81025; 83690; 85025; 93005; 96361; 96374; 96375; 96376; 99285; G0480; J1170; J2060; J2405; J7030